=== PATIENT | male | born 1965 | race Caucasian/White ===

== ENCOUNTER 2016-06-13 06:38 | Outpatient (CLI) | payer OTHER ==
[~2016-06-13] VITALS: Ht 190.5 cm; Wt 136.1 kg
[~2016-06-13 06:38] MED LIST: ALPR1T PO; CYCL10TA9 PO; GABA300C PO; HYDR-3816 PO; HYDR1TAB PO; HYDR473S16 PO; LIDO20SO20 PO
[2016-06-13] MEDS ORDERED: BUPIVACAINE 0.25% 30 ML (SENSORCAINE) VIAL ONE (06:59)
[2016-06-13] MEDS ORDERED: LIDOCAINE 1% INJ 20 ML (XYLOCAINE) VIAL ONE (06:59)
[2016-06-13] MEDS ORDERED: TRIAMCINOLONE ACET (KENALOG-40) 40 MG/ML 1 ML VIAL ONE (06:59)
[2016-06-13 07:10] VITALS: BP 119/86
[2016-06-13 08:04] VITALS: BP 134/83
--- NOTE | 2016-06-13 11:21 | Pain Medicine-Procedure ---
Procedure Pre-Op/Post-Op Diagnosis Diagnosis: sacrococcygeal disorder Indications for Operation hip pain Attending Surgeon Jp Procedure Date of Service: Jun 13, 2016 Procedure: Flouroscopic guided right sacroiliac joint injection PROCEDURE IN DETAIL: After obtaining informed consent from the patient, the patient's chart was reviewed. The patient was then brought to the procedure room and placed in the prone position. A time out was performed. The back was prepped with antiseptic solution and under fluoroscopic guidance the patient's sacroiliac joint on the right side was identified. Right sacroiliac joint was identified with fluoroscopic guidance and 2 mL's of 1% lidocaine was used to anesthestize the skin and then one 22-gauge 3.5 inch spinal needle was inserted and advance under flouroscopic guidance until it was in the posterior inferior 1 /3 of the sacroiliac joint on the right side. After negative aspiration, needle was injected with 80 mg of Kenalog along with 2 mL's of 0.25% marcaine. Needle was then flushed with 1% lidocaine and then removed. Band-Aids were applied to all the sites and the patient tolerated the procedure well and was taken to the recovery area in stable condition. Complications none BIBIANA MELENDEZ MD Jun 13, 2016 11:21 am
== END 2016-06-13 08:06 | disposition home or self-care (01) ==
LOC: CARD 06:38
PROVIDERS: ATTEND Pain Medicine Pain Medicine
DX: M53.3 Sacrococcygeal disorders, not elsewhere classified (principal); Z79.899 Other long term (current) drug therapy; Z79.84 Long term (current) use of oral hypoglycemic drugs; E11.9 Type 2 diabetes mellitus without complications
CPT/HCPCS: 27096; 82962

== ENCOUNTER 2016-09-05 09:44 | Outpatient (CLI) | payer OTHER ==
[~2016-09-05] VITALS: Ht 190.5 cm; Wt 136.1 kg
[2016-09-05] MEDS ORDERED: TRIAMCINOLONE ACET (KENALOG-40) 40 MG/ML 1 ML VIAL ONE (09:55)
[2016-09-05] MEDS ORDERED: BUPIVACAINE 0.25% 30 ML (SENSORCAINE) VIAL ONE (09:56)
[2016-09-05] MEDS ORDERED: LIDOCAINE 1% INJ 20 ML (XYLOCAINE) VIAL ONE (09:56)
[2016-09-05 10:11] VITALS: BP 120/84
[2016-09-05 10:38] VITALS: BP 133/89
--- NOTE | 2016-09-05 12:35 | Pain Medicine-Procedure ---
Procedure Pre-Op/Post-Op Diagnosis Diagnosis: sacrococcygeal disorder Indications for Operation Hip pain Attending Surgeon Jp Procedure Date of Service: September 05, 2016 Procedure: Flouroscopic guided right sacroiliac joint injection PROCEDURE IN DETAIL: After obtaining informed consent from the patient, the patient's chart was reviewed. The patient was then brought to the procedure room and placed in the prone position. A time out was performed. The back was prepped with antiseptic solution and under fluoroscopic guidance the patient's sacroiliac joint on the right side was identified. Right sacroiliac joint was identified with fluoroscopic guidance and 2 mL's of 1% lidocaine was used to anesthestize the skin and then one 22-gauge 3.5 inch spinal needle was inserted and advance under flouroscopic guidance until it was in the posterior inferior 1 /3 of the sacroiliac joint on the right side. After negative aspiration, needle was injected with 80 mg of Kenalog along with 2 mL's of 0.25% marcaine. Needle was then flushed with 1% lidocaine and then removed. Band-Aids were applied to all the sites and the patient tolerated the procedure well and was taken to the recovery area in stable condition. Complications None BIBIANA MELENDEZ MD September 05, 2016 12:35 pm
== END 2016-09-05 10:41 | disposition home or self-care (01) ==
LOC: CARD 09:44
PROVIDERS: ATTEND Pain Medicine Pain Medicine
DX: M53.3 Sacrococcygeal disorders, not elsewhere classified (principal); Z79.84 Long term (current) use of oral hypoglycemic drugs; Z79.899 Other long term (current) drug therapy
CPT/HCPCS: 27096; 82962

== ENCOUNTER 2016-09-26 16:40 | Emergency (ER) | payer OTHER ==
[~2016-09-26] VITALS: Ht 190.5 cm; Wt 136.1 kg
[2016-09-26 17:22] LABS: RED BLOOD COUNT 5.12 10^6/uL (4.35-5.85)
[2016-09-26 17:32] LABS: BILIRUBIN,URINE NEGATIVE (NEGATIVE); KETONES,URINE NEGATIVE (NEGATIVE); LEUKOCYTE ESTERASE ,URINE NEGATIVE (NEGATIVE); NITRITE,URINE NEGATIVE (NEGATIVE); PH,URINE 6.5 (5-9); PROTEIN,URINE 1+ (NEGATIVE); UROBILINOGEN,URINE NORMAL (NORMAL)
[2016-09-26 17:39] LABS: ALANINE AMINOTRANSFERASE 24 U/L (0-55); ALBUMIN 4.6 G/DL (3.2-4.5); ANION GAP 11 MMOL/L (5-14); ASPARTATE AMINO TRANSFERASE 17 U/L (5-34); BILIRUBIN,DIRECT 0.2 MG/DL (0.0-0.3); BILIRUBIN,INDIRECT 0.4 MG/DL; BILIRUBIN,TOTAL 0.6 MG/DL (0.1-1.0); BLOOD UREA NITROGEN 14 MG/DL (7-18); BUN/CREATININE RATIO 15; CALCIUM 9.5 MG/DL (8.5-10.1); CARBON DIOXIDE 22 MMOL/L (21-32); CHLORIDE 107 MMOL/L (98-107); CREATININE SERUM 0.94 MG/DL (0.60-1.30); GFR ESTIMATED > 60; GLUCOSE 128 MG/DL (70-105); POTASSIUM 3.7 MMOL/L (3.6-5.0); SODIUM 140 MMOL/L (135-145); TOTAL PROTEIN 7.6 G/DL (6.4-8.2)
[2016-09-26 17:41] LABS: ALCOHOL < 10 MG/DL (<10)
[2016-09-26 17:41] LABS: WBC,URINE RARE /HPF
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
[2016-09-26] MEDS: TETANUS,DIPTH,PERTUSS P/F (BOOSTRIX) 0.5 ML VIAL IM STA (17:53)
[2016-09-26] MEDS: HYDROcodone/APAP 7.5 MG/325 MG (LORTAB, LORCET PLUS) TABLET PO ONE (18:03)
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
[2016-09-26] MEDS ORDERED: HYDR-3816 PO (18:42)
[2016-09-26 18:50] VITALS: BP 130/90
== END 2016-09-26 18:50 | disposition home or self-care (01) ==
LOC: EDUNIT# 16:40 → ER 16:42
DX: S09.90XA Unspecified injury of head, initial encounter (principal); S60.221A Contusion of right hand, initial encounter; S80.11XA Contusion of right lower leg, initial encounter; M50.320 Other cervical disc degeneration, mid-cervical region, unspecified level; V89.2XXA Person injured in unspecified motor-vehicle accident, traffic, initial encounter; Y92.410 Unspecified street and highway as the place of occurrence of the external cause; Y99.0 Civilian activity done for income or pay
CPT/HCPCS: 36415; 70450; 72125; 73130; 80048; 80076; 80320; 81000; 85027; 90715

== ENCOUNTER 2017-04-01 06:03 | Emergency (ER) | payer SELFPAY ==
[~2017-04-01] VITALS: Ht 188 cm; Wt 93.0 kg
[2017-04-01] MEDS ORDERED: LISI10TA2 (06:18)
[2017-04-01] MEDS ORDERED: TOPI50TA13 (06:18)
[2017-04-01] MEDS ORDERED: METF1000 (06:18)
[2017-04-01] MEDS ORDERED: AMIT100T2 (06:18)
[2017-04-01] MEDS ORDERED: NS IV 1000 ML 1,000 ML IV ONE (06:28)
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
[2017-04-01 06:50] LABS: BASOPHILS # (AUTO) 0.1 10^3/uL (0.0-0.1); BASOPHILS % (AUTO) 1 % (0-10); EOSINOPHILS # (AUTO) 0.3 10^3/uL (0.0-0.3); EOSINOPHILS % (AUTO) 4 % (0-10); LYMPHOCYTES # (AUTO) 1.5 X 10^3 (1.0-4.0); LYMPHOCYTES % (AUTO) 21 % (12-44); MEAN CORPUSCULAR HEMOGLOBIN 32 PG (25-34); MEAN CORPUSCULAR HGB CONC 35 G/DL (32-36); MEAN CORPUSCULAR VOLUME 91 FL (80-99); MEAN PLATELET VOLUME 10.1 FL (7.4-10.4); MONOCYTES # (AUTO) 0.6 X 10^3 (0.0-1.0); MONOCYTES % (AUTO) 9 % (0-12); NEUTROPHILS # (AUTO) 4.7 X 10^3 (1.8-7.8); NEUTROPHILS % (AUTO) 65 % (42-75); PLATELET COUNT 260 10^3/uL (130-400); RED BLOOD COUNT 4.65 10^6/uL (4.35-5.85); RED CELL DISTRIBUTION WIDTH 12.6 % (10.0-14.5); WHITE BLOOD COUNT 7.3 10^3/uL (4.3-11.0)
--- NOTE | 2017-04-01 06:55 | Diagnostic Imaging Report ---
PROCEDURE: CT head without contrast. TECHNIQUE: Multiple contiguous axial images were obtained through the brain without the use of intravenous contrast. INDICATION: Headache. Hypertension. Swallowing difficulties. Tremors. The ventricles are normal in size, shape and position. There is no acute parenchymal hemorrhage, edema or mass. There is no extra-axial mass or hemorrhage. There is no acute bony abnormality. IMPRESSION: Normal CT of the head. There is no change from 09/26/2016. Dictated by: Dictated on workstation # [id number]
[2017-04-01 07:06] LABS: ALANINE AMINOTRANSFERASE 9 U/L (0-55); ANION GAP 12 MMOL/L (5-14); ASPARTATE AMINO TRANSFERASE 8 U/L (5-34); BILIRUBIN,TOTAL 0.4 MG/DL (0.1-1.0); BLOOD UREA NITROGEN 9 MG/DL (7-18); BUN/CREATININE RATIO 11; CALCIUM 9.2 MG/DL (8.5-10.1); CARBON DIOXIDE 20 MMOL/L (21-32); CHLORIDE 104 MMOL/L (98-107); CREATININE SERUM 0.83 MG/DL (0.60-1.30); GFR ESTIMATED > 60; GLUCOSE 147 MG/DL (70-105); POTASSIUM 3.4 MMOL/L (3.6-5.0); SODIUM 136 MMOL/L (135-145); TOTAL PROTEIN 6.6 GM/DL (6.4-8.2)
[2017-04-01 07:12] LABS: MYOGLOBIN SERUM 14.1 NG/ML (10.0-92.0)
[2017-04-01 08:14] VITALS: BP 126/84
[2017-04-01 09:27] VITALS: BP 112/95
== END 2017-04-01 09:27 | disposition home or self-care (01) ==
LOC: EDUNIT# 06:03 → ER 06:07
DX: I10 Essential (primary) hypertension (principal); R13.10 Dysphagia, unspecified; F41.9 Anxiety disorder, unspecified; E11.9 Type 2 diabetes mellitus without complications; F12.90 Cannabis use, unspecified, uncomplicated; Z87.821 Personal history of retained foreign body fully removed; Z79.84 Long term (current) use of oral hypoglycemic drugs; Z86.19 Personal history of other infectious and parasitic diseases
CPT/HCPCS: 36415; 70450; 80053; 80306; 83874; 85025; 99283

== ENCOUNTER → 2017-07-29 | Outpatient (CLI) | payer SELFPAY ==
[~2017-07-29] MED LIST changes: +AMIT100T2; +BARIUM SUSPENSION 105% (LIQUID POLIBAR PLUS) 240 ML/DOSE PO ONE; +BARIUM SUSPENSION 60% (LIQUID EZ PAQUE) 240 ML DOSE PO ONE; +HYDR-34 PO; +LISI10TA2; +METF1000; +TOPI50TA13
--- NOTE | 2017-07-29 10:59 | Diagnostic Imaging Report ---
INDICATION: Dysphagia. TECHNIQUE: The patient ingested effervescent crystals as well as thin and thick barium and imaging of the esophagus was performed. A total of 2 minutes and 7 seconds of fluoroscopic time was utilized. FINDINGS: The upper esophagus is unremarkable. The patient did aspirate a small amount of thick barium. The mid thoracic esophagus is unremarkable. The distal esophagus does show a segment of significant mucosal irregularity and luminal narrowing with more proximal dilatation present. This is approximately 10 cm in length. This is concerning for a distal esophageal neoplasm. Contrast did pass into the stomach and no complete obstruction is identified. IMPRESSION: Significant irregularity and luminal narrowing of the distal esophagus, suspicious for esophageal neoplasm. Further evaluation with endoscopy is recommended. Dr. Corie West will be called with these results. Dictated by: Dictated on workstation # [id number]
== END ==
LOC: RAD 09:06
PROVIDERS: ATTEND Family Medicine
DX: R13.10 Dysphagia, unspecified (principal); K22.8 Other specified diseases of esophagus
CPT/HCPCS: 74220

== ENCOUNTER 2017-08-05 13:10 | Outpatient (CLI) | payer SELFPAY ==
[~2017-08-05] VITALS: Ht 188 cm; Wt 81.6 kg
[~2017-08-05 13:10] MED LIST changes: -AMIT100T2; +AMIT100T2 PO; -BARIUM SUSPENSION 105% (LIQUID POLIBAR PLUS) 240 ML/DOSE PO ONE; -BARIUM SUSPENSION 60% (LIQUID EZ PAQUE) 240 ML DOSE PO ONE; -METF1000; +METF10002 PO
[2017-09-07] MEDS ORDERED: HYDR-3820 PO (14:48)
== END 2017-08-05 14:11 ==
LOC: PREOP 13:10
PROVIDERS: ATTEND Surgery
DX: Z01.818 Encounter for other preprocedural examination (principal); R13.10 Dysphagia, unspecified; K22.2 Esophageal obstruction

== ENCOUNTER 2017-08-06 07:00 | Day surgery (SDC) | payer OTHER ==
[~2017-08-06] VITALS: Ht 188 cm; Wt 81.6 kg
[~2017-08-06 07:00] MED LIST changes: +METF1000 PO; -METF10002 PO
[2017-08-06] MEDS ORDERED: LACTATED RINGERS 1,000 ML IV ONE (07:08)
[2017-08-06] MEDS ORDERED: LACTATED RINGERS 1,000 ML IV STA (07:09)
[2017-08-06] MEDS ORDERED: HURRICAINE EXT TUBE (BENZOCAINE) XX PRN (07:15)
[2017-08-06] MEDS ORDERED: SUCCINYLCHOLINE INJ 100 MG/5 ML SYR ONE (07:21)
[2017-08-06] MEDS ORDERED: MIDAZOLAM 2 MG/2 ML (VERSED) VIAL ONE (07:21)
[2017-08-06] MEDS ORDERED: proPOfol 200 MG/20 ML (DIPRIVAN) VIAL IV ONE ×2 (07:21→08:33)
[2017-08-06 07:50] VITALS: BP 116/76
--- NOTE | 2017-08-06 08:20 | Progress Note-Pre Operative ---
Pre-Operative Progress Note H&P Reviewed The H&P was reviewed, patient examined and no changes noted. Time Seen by Provider: 08:16 Date H&P Reviewed: Aug 06, 2017 Time H&P Reviewed: 08:18 Pre-Operative Diagnosis: Dysphagia, Esophageal narrowing KAREN NG DO Aug 06, 2017 08:20
--- NOTE | 2017-08-06 08:49 | Progress Note-Post Operative ---
Post-Operative Progess Note Surgeon (s)/Meteorological Aide (s) Surgeon KAREN NG DO Meteorological Aide: none Pre-Operative Diagnosis Dysphagia, Esophageal narrowing Post-Operative Diagnosis Esophageal mass Procedure & Operative Findings Date of Procedure 08/06/17 Procedure Performed/Findings EGD with bx Anesthesia Type IV sedation by HEALTH CONSULTANT Estimated Blood Loss Estimated blood loss (mL): scant Specimens/Packing Specimens Removed bx of upper mass bx of lower mass KAREN NG DO Aug 06, 2017 08:49
--- NOTE | 2017-08-06 08:51 | Endoscopy Discharge Instruct ---
Endo Procedure/Findings Findings 1.: Other Findings (esophageal mass) Discharge Instructions - Activity: You might feel a little sleepy until tomorrow. This is due to the medicine you received to relax you. Until tomorrow, you should: NOT drive a car, operate machinery or power tools. NOT drink any alcoholic beverages. NOT make any important decisions or sign importortant papers. Do not return to work until tomorrow, unless otherwise instructed. Resume previous activities tomorrow. Diet: Start by taking liquids. If you tolerate liquids, advance to solid food. You may have some bloody spit, vomit or coughing. Notify Physician - If you experience excessive bleeding, unusual abdominal pain, fever, or chest pain, contact your doctor immediately. Follow-Up: - I have received and understand the above instructions and will call my doctor if I have any further questions. Patient Signature Date Nurse Signature Other (Relationship) KAREN NG DO Aug 06, 2017 08:51
[2017-08-06 09:05] VITALS: BP 120/78
--- NOTE | 2017-08-06 09:18 | Anesthesia-General Post-Op ---
MAC Patient Condition Mental Status/LOC: Same as Preop Cardiovascular: Satisfactory Nausea/Vomiting: Absent Respiratory: Satisfactory Pain: Controlled Complications: Absent Post Op Complications Complications None Follow Up Care/Instructions Patient Instructions None needed. Anesthesiology Discharge Order Discharge Order Patient is doing well, no complaints, stable vital signs, no apparent adverse anesthesia problems. No complications reported per nursing. ASH THOMSON CRNA Aug 06, 2017 09:18
[2017-08-06 09:30] VITALS: BP 122/81
[2017-08-06 09:50] VITALS: BP 122/81
--- NOTE | 2017-08-07 20:09 | OPERATIVE REPORT ---
DATE OF SERVICE: 08/06/2017 PREOPERATIVE DIAGNOSES: Dysphagia, questionable esophageal narrowing. POSTOPERATIVE DIAGNOSES: 1. Dysphagia. 2. Esophageal mass. PROCEDURE: EGD with biopsy. SURGEON: Yony Delong DO. COUNSELING SERVICES DIRECTOR: None. ANESTHESIA: IV sedation by the MILK PROCESSING WORKER. SPECIMEN: Biopsy from esophageal mass. Possibly, there are two different masses. Both were biopsied. BLOOD LOSS: Scant. FLUIDS: Per anesthesia. POSTOPERATIVE CONDITION: Stable. INDICATION FOR PROCEDURE: The patient is a 51-year-old male who has been having some trouble swallowing and had a barium swallow, which showed some narrowing of the esophagus. FINDINGS: The patient had a mass in the esophagus, possibly to about 10 cm long. Could not get into the stomach because I could not get pass this mass. PROCEDURE NOTE: After informed consent was obtained, the patient was brought to the endoscopy suite, placed in the left lateral decubitus position. He was administered IV sedation by the MILK PROCESSING WORKER who then monitored his vitals the entire time, heart rate, blood pressure and pulse ox, and the scope was inserted down the mouth into the oropharynx and then down into the esophagus. Down towards the distal portion of the esophagus, I saw a mass. Elected to do a biopsy. Blood little bit. Took two biopsies here, tried to push pass it. There appeared to be almost like another mass . This is at least a 10 cm length could not get into the stomach, could not get pass the lower portion of the mass. There was some food particles that we removed by grasping them. The upper portion of the esophagus looked fine and back of the throat looked fine. Pulled the scope out and the patient was then recovered in the endoscopy suite. Job ID: [id number] DocumentID: [id number] Dictated Date: 08/07/2017 11:45:29 Order Make Up Clerk Date: 08/07/2017 20:09:26 Dictated By: YONY DELONG DO
== END 2017-08-06 09:50 | disposition home or self-care (01) ==
LOC: ENDO 07:00
PROVIDERS: ATTEND Surgery
DX: C15.5 Malignant neoplasm of lower third of esophagus (principal); I10 Essential (primary) hypertension; E11.42 Type 2 diabetes mellitus with diabetic polyneuropathy; G43.909 Migraine, unspecified, not intractable, without status migrainosus; Z87.820 Personal history of traumatic brain injury; Z79.84 Long term (current) use of oral hypoglycemic drugs; Z79.899 Other long term (current) drug therapy

== ENCOUNTER → 2017-08-17 | Outpatient (CLI) | payer OTHER ==
[~2017-08-17] MED LIST changes: +BARIUM SUSPENSION 2.1% (VANILLA SILQ) 450 ML PO ONE; +HYDR-3820 PO; +IOHEXOL 350 MG/ML 100 ML (OMNIPAQUE 350) VIAL IV ONE; -METF1000 PO; +METF10002 PO; +NS 100 ML (IVPB) BAG IV ONE; +NS 250 ML (IVPB) BAG IV ONE
--- NOTE | 2017-08-17 09:04 | Diagnostic Imaging Report ---
PROCEDURE: CT chest with contrast, CT abdomen and pelvis with and without contrast. TECHNIQUE: Pre and post intravenous contrast axial imaging of the abdomen and pelvis and post contrast axial imaging of the chest were performed. INDICATION: Esophageal carcinoma. COMPARISON: No prior CT studies are available for comparison. FINDINGS: CT chest: No axillary lymphadenopathy is identified. No definite hilar or mediastinal lymphadenopathy is seen. Significant circumferential wall thickening of the distal esophagus extending to the level of the GE junction is noted corresponding with the patient's diagnosis of esophageal carcinoma and abnormal upper GI study. No pericardial or pleural fluid is detected. No pulmonary parenchymal mass, nodule or infiltrate is identified. Bony structures are nonacute. CT abdomen and pelvis: No discrete liver mass is identified. Gallbladder is unremarkable. The pancreas and spleen are unremarkable. No adrenal mass is detected. The kidneys are unremarkable. Aorta is nonaneurysmal. No definite central retroperitoneal or mesenteric lymphadenopathy is identified. The small and large bowel loops are of normal caliber. There is no ascites. Bladder and prostate are unremarkable. IMPRESSION: 1. Distal esophageal circumferential wall thickening consistent with the patient's diagnosis of esophageal carcinoma. No thoracic lymphadenopathy or evidence of pulmonary metastatic disease is identified. 2. Unremarkable CT of the abdomen and pelvis. No findings to suggest metastatic disease are identified. Dictated by: Dictated on workstation # [id number]
== END ==
LOC: RAD 08:20
PROVIDERS: ATTEND Internal Medicine Hematology & Oncology
DX: C15.5 Malignant neoplasm of lower third of esophagus (principal)
CPT/HCPCS: 71260; 74178

== ENCOUNTER → 2017-08-25 | Outpatient (CLI) | payer OTHER ==
[~2017-08-25] MED LIST changes: -BARIUM SUSPENSION 2.1% (VANILLA SILQ) 450 ML PO ONE; -IOHEXOL 350 MG/ML 100 ML (OMNIPAQUE 350) VIAL IV ONE; -NS 100 ML (IVPB) BAG IV ONE; -NS 250 ML (IVPB) BAG IV ONE
--- NOTE | 2017-08-25 15:54 | Diagnostic Imaging Report ---
EXAMINATION: PET/CT. INDICATION: Malignant neoplasm of the distal esophagus. EXAMINATION: After intravenous administration of 11.42 mCi of F18-FDG, a series of overlapping emission and transmission PET images was obtained. In the coronal, transaxial and sagittal planes, the area imaged extended from the skull base through the upper thighs. FINDINGS: There are no previous PET/CT examinations available for comparison. The CT chest, abdomen, and pelvis exam of 08/17/2017, however, did show circumferential wall thickening of the distal esophagus consistent with the patient's diagnosis of esophageal carcinoma. There was no other abnormality identified to suggest neoplastic disease. On this study, there is intense hypermetabolic activity throughout the circumferential wall thickening of the distal third of the esophagus. The maximum SUV in this area is approximately 13. There are also 2 small foci of increased hypermetabolic activity along the right lateral aspect of the esophagus at the level of the azygoesophageal recess. These suspected nodes have a maximum SUV of 4.6 and should be considered neoplastic until proven otherwise. There is no other hypermetabolic activity identified to suggest the presence of neoplasm. There is increased activity in the oral cavity. There is no discernible mass in this area, however, and the activity is probably physiologic in nature. Physiologic activity is seen within the kidneys, bowel, bladder, and brain. IMPRESSION: 1. There is intense hypermetabolic activity involving the distal third of the esophagus in the region of the circumferential wall thickening seen on the recent CT exam. This would coincide with the patient's history of esophageal carcinoma. 2. There are also two small hypermetabolic nodes in the azygoesophageal recess. These should be considered neoplastic as well. 3. There is no other hypermetabolic activity to suggest the presence of neoplasm. The activity in the oral cavity is probably physiologic in nature. If further study is desired, then direct visualization would be recommended. 4. There is no acute abnormality identified on the CT images. Dictated by: Dictated on workstation # [id number]
== END ==
LOC: RAD 08:37
PROVIDERS: ATTEND Internal Medicine Hematology & Oncology
DX: C15.5 Malignant neoplasm of lower third of esophagus (principal)

== ENCOUNTER 2017-09-07 07:21 | Day surgery (SDC) | payer OTHER ==
[~2017-09-07] VITALS: Ht 188 cm; Wt 81.6 kg
[~2017-09-07 07:21] MED LIST changes: -HYDR-3820 PO
[2017-09-07] MEDS ORDERED: CLINDAMYCIN 600 MG/50 ML IVPB 50 ML IV ONE (08:00)
[2017-09-07] MEDS: LACTATED RINGERS 1,000 ML IV PRN ×2 (09:08→14:30)
[2017-09-07 09:09] VITALS: BP 112/80
--- NOTE | 2017-09-07 09:27 | Progress Note-Pre Operative ---
Pre-Operative Progress Note H&P Reviewed The H&P was reviewed, patient examined and no changes noted. Time Seen by Provider: 09:20 Date H&P Reviewed: September 07, 2017 Time H&P Reviewed: 09:23 Pre-Operative Diagnosis: , Esophageal CA KAREN NG DO September 07, 2017 09:27
[2017-09-07] MEDS ORDERED: PROPOFOL INJECTION 50 ML IV ONE (10:22)
[2017-09-07] MEDS ORDERED: fentaNYL INJECTION 100 MCG/2 ML AMP ONE (10:22)
[2017-09-07] MEDS ORDERED: LIDOCAINE/EPI 1%-1:200,000 (XYLOCAINE) 10 ML VIAL ONE ×2 (10:23→13:44)
[2017-09-07] MEDS ORDERED: HEParin (CENTRAL IV FLUSH) 500 UNIT/5 ML SYR ONE (10:23)
[2017-09-07] MEDS ORDERED: 0.9% SODIUM CHLORIDE PF INJ 20 ML VIAL ONE (10:24)
[2017-09-07] MEDS ORDERED: MIDAZOLAM 2 MG/2 ML (VERSED) VIAL ONE (10:25)
[2017-09-07] MEDS ORDERED: ONDANSETRON 4 MG/2 ML (SDV) Z0FRAN ONE ×2 (13:35→13:36)
[2017-09-07] MEDS ORDERED: ROCURONIUM 10 MG/ML 5 ML SYRINGE IV ONE (13:36)
[2017-09-07] MEDS ORDERED: SEVOFLURANE (ULTANE) 15 ML INHAL SOLN ONE ×7 (13:36→14:25)
--- NOTE | 2017-09-07 14:11 | Diagnostic Imaging Report ---
Indication: Fluoroscopy for prior port placement. Fluoroscopy was provided for Dr. Delong in the OR during power port placement. 15 seconds of fluoroscopy was utilized. A right subclavian port appears to have the tip overlying the SVC. Impression: Fluoroscopy for power port placement. Dictated by: Dictated on workstation # [id number]
[2017-09-07] MEDS ORDERED: LIDOCAINE PF 2% 5 ML (XYLOCAINE) VIAL ONE (14:21)
[2017-09-07] MEDS ORDERED: GLYCOPYRROLATE 0.2 MG/ML (ROBINUL) 2 ML VIAL ONE (14:37)
[2017-09-07] MEDS ORDERED: NEOSTIGMINE 1 MG/ML 5 ML SYRINGE ONE (14:37)
--- NOTE | 2017-09-07 14:47 | Progress Note-Post Operative ---
Post-Operative Progess Note Surgeon (s)/Senior Oracle Dba (s) Surgeon KAREN NG DO Senior Oracle Dba: Xiao Pre-Operative Diagnosis , Esophageal CA Post-Operative Diagnosis same Procedure & Operative Findings Date of Procedure 09/07/17 Procedure Performed/Findings 1. Open Jejunostomy tube placement 2. Hugo-cath insertion, right SC vein, right ACW Anesthesia Type GET Estimated Blood Loss Estimated blood loss (mL): less than 5ml Specimens/Packing Specimens Removed none KAREN NG DO September 07, 2017 14:47
[2017-09-07] MEDS ORDERED: HYDR-3820 PO (14:48)
--- NOTE | 2017-09-07 14:50 | Discharge Inst-Surgical ---
Discharge Inst-Surgical Depart Medication/Instructions New, Converted or Re-Newed RX: RX Given to Pt/Family Patient Instructions Follow up Appt: Make appointment for 1 week. Instructions: No lifting greater than 10 pounds. No strenuous activity. May shower in 24 hours, no tub bath or soaking. Use incentive spirometer at home as directed. No Smoking Skin/Wound Care: May remove bandages. You need to leave the matias in place; will remove them in the office. Symptoms to Report: Appetite Changes, Extremity Discoloration, Numbness/Tingling, Swelling Increased , Bleeding Excessive, Eyesight Changes, Pain Increased, Urine Color Change, Constipation(Persistent), Fever over 101 degree F, Pain/Pressure in chest, Urinating Difficulty, Cough Up/Vomit Blood, Heart Beat Irreg/Pounding, Pain/ Pressure in jaw, Cramps in feet or legs, Lightheadedness, Pain/Pressure in shoulder, Diarrhea(Persistent), Memory Changes Suddenly, Questions/Concerns, Weight gain consecutive days, Dizziness/Fainting, Nausea/Vomiting, Shortness of Breath, Weight gain over 2 pounds If questions or concerns contact your physician Or seek help at emergency department. Activity Activity as Tolerated: Yes Activity Instructions: Avoid Stress to Incision Driving Instructions: No Driving/Refer to Diet Discharge Diet: Liquid Diet If Any Problems/Questions/Issu: Contact Your Physician, Go to Emergency Room Skin/Wound Care Infection Signs and Symptoms: Increased Redness, Foul Odor of Wound, Increased Drainage, Skin Itchy or Has a Rash, Increased Swelling, Temperature Above 101 F Bathing Instructions: Shower Stitches/[place]/Dermabond Dis: Care of Matias Ice Pack: Ice On and Off Site KAREN NG DO September 07, 2017 14:50
[2017-09-07] MEDS ORDERED: MEPERIDINE (DEMEROL) INJ 50 MG/ML IVP PRN (15:15)
[2017-09-07] MEDS ORDERED: ONDANSETRON 4 MG/2 ML (SDV) Z0FRAN IVP PRN (15:15)
[2017-09-07] MEDS ORDERED: morphine INJ 10 MG/ML 1ML (SYR OR VIAL) IVP PRN (15:15)
[2017-09-07 15:40] VITALS: BP 138/86
--- NOTE | 2017-09-07 15:42 | Anesthesia-General Post-Op ---
General Patient Condition Mental Status/LOC: Same as Preop Cardiovascular: Satisfactory Nausea/Vomiting: Absent Respiratory: Satisfactory Pain: Controlled Complications: Absent Post Op Complications Complications None Follow Up Care/Instructions Patient Instructions None needed. Anesthesia/Patient Condition Patient Condition Patient is doing well, C/O pain which is expected, stable vital signs, no apparent adverse anesthesia problems. NADIA ERVIN DO September 07, 2017 15:42
[2017-09-07] MEDS ORDERED: HYDROcodone/APAP 10 MG/325 MG (LORTAB) TAB PO ONE ×2 (15:57→16:00)
[2017-09-07 16:10] VITALS: BP 133/89
[2017-09-07 16:40] VITALS: BP 137/88
[2017-09-07 16:55] VITALS: BP 137/88
--- OUTSIDE RECORDS SUMMARY | 2017-09-07 17:28 | XMS REPORT | Encounter Summary ---
Author Author [facility] Organization [facility] Address Unknown Phone Unavailable Care Team Providers Care Decorating Equipment Setter Name Role Phone PCP Unavailable Reason for Referral * Consult, Test & Treat (Routine) Status Reason Specialty Diagnoses / Referred By Referred To Procedures Contact Contact Canceled Specialty Diagnoses Angel-Krystal, Services Malignant MD Abner Required neoplasm of [address] unspecified [place] [address] location ([facility]) [place] [address] Reason for Visit * Reason Comments Navigation Assessment Encounter Details Date Type Department Care Team Description 08/31/2017 Telephone [facility] Sophia Patel RN Navigation Assessment [facility] Exam [address] [place] [address] Social History Tobacco Use Types Packs/Day Years Used Date Never Assessed Sex Assigned at Date Recorded Not on file as of this encounter Miscellaneous Notes * Telephone Encounter - Sophia Patel RN - 09/01/2017 7:23 PM CDT Obtained referral on 08/28/17. Patient was authorized by FC and was reached by navigation IC to confirm demographics on 08/31/17. This RN spoke to the patient that day, completed navigation assessment. Clarified referral with Dr. Vanegas's office. They are referring for surgical consultation of esophageal malignancy and consideration of J-tube placement, not port placement. Spoke to patient regarding need for an EUS. Patient agreeable. this RN contacted Peggy Erickson APRN, she agreed with need for EUS to complete staging. Daniele contacted by GI lab to schedule. Patient however is uninsured. Patient given the number for roberta at the [facility]. This RN followed up with the patient. He stated that he "cleared" by [facility] for services there. INformed patient that [facility] is a different facility than , he's need to talk with our FCs. Daniele stated he saw a local surgeon for port placement today and stated he might have the EUS with him. At that time the patients' phone was disconnected and this RN was unable to reach him again. Updating covering nurse. Sophia Patel RN in this encounter Plan of Treatment Name Priority Associated Diagnoses Order Schedule AMB REFERRAL TO PATHOLOGY & LABORATORY Routine Malignant neoplasm of Ordered: 09/01/2017 MEDICINE PHYSICIAN-EXTERNAL esophagus, unspecified location (HCC) as of this encounter Visit Diagnoses Diagnosis Malignant neoplasm of esophagus, unspecified location (HCC) - Primary
--- OUTSIDE RECORDS SUMMARY | 2017-09-07 17:28 | XMS REPORT | Continuity of Care Document ---
Author Author [facility] Address Unknown Phone Unavailable Care Team Providers Care Cable Engineer Name Role Phone [employer] Unavailable Unavailable Problems Medications Allergies, Adverse Reactions, Alerts Immunizations Results Vital Signs Encounters Location Location Details Encounter Type Encounter Number Reason For Visit Attending Provider ADM Date DC Date Status Source O SUSI BUTLER Active [facility] Procedures Plan of Care Social History Assessment and Plan Family History Advance Directives Functional Status
--- OUTSIDE RECORDS SUMMARY | 2017-09-07 17:28 | XMS REPORT | Encounter Summary ---
Author Author [facility] Organization [facility] Address Unknown Phone Unavailable Care Team Providers Care Bulk Folder Name Role Phone PCP Unavailable Reason for Visit * Reason Comments Appointment Encounter Details Date Type Department Care Team Description 09/02/2017 Telephone [facility] Abner Adrian MD Appointment [facility] - [facility] Exam [address] [place] [address] [place] [address] [phone] Social History Tobacco Use Types Packs/Day Years Used Date Never Assessed Sex Assigned at Date Recorded Not on file as of this encounter Miscellaneous Notes * Telephone Encounter - Amira Mora RN - 09/02/2017 10:02 AM CDT Called [facility] to clarify referral. She states that j tube and port will be placed locally. EUS to be done by Dr. Dan. She will call us back when they are ready to schedule with Dr. Syed for surgical planning. in this encounter Plan of Treatment Not on fileas of this encounter Visit Diagnoses Not on filein this encounter
--- OUTSIDE RECORDS SUMMARY | 2017-09-07 17:28 | XMS REPORT | Encounter Summary ---
Author Author [facility] Organization [facility] Address Unknown Phone Unavailable Care Team Providers Care Drill Press Operator Numerical Control Name Role Phone PCP Unavailable Reason for Referral * Consult, Test & Treat Status Reason Specialty Diagnoses / Referred By Referred To Procedures Contact Contact Submitted Specialty Gastroenterology Diagnoses Abiel-Dre, Olyaee , Etienne, Services Malignant ILA Woods MD Required neoplasm of [address], Bl[address] [place] [address] [place] [address] [place], [place] location (HCC) [place] [address] Phone: Encounter Details Date Type Department Care Team Description 09/01/2017 Orders Only [facility] Peggy Diaz, 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, 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 Medicine [address] location (HCC) (Primary [address]ND FLO[address]OD [address] [place] [address] Dx) [address] [place] [address] OFFICE BLDG [phone] [place] [address] Social History Tobacco Use Types Packs/Day Years Used Date Never Assessed Sex Assigned at Date Recorded Not on file as of this encounter Plan of Treatment Name Priority Associated Diagnoses Order Schedule AMB REFERRAL TO GI LAB FOR PROCEDURE Routine Malignant neoplasm of Ordered: 09/01/2017 esophagus, unspecified location (HCC) as of this encounter Visit Diagnoses Diagnosis Malignant neoplasm of esophagus, unspecified location (HCC) - Primary
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
--- OUTSIDE RECORDS SUMMARY | 2017-09-07 17:28 | XMS REPORT | Encounter Summary ---
Author Author [facility] Organization [facility] Address Unknown Phone Unavailable Care Team Providers Care Wide Area Network Systems Administrator Name Role Phone PCP Unavailable Reason for Visit * Reason Comments Appointment Request EUS Encounter Details Date Type Department Care Team Description 09/01/2017 Telephone [facility] Lelia Moreno Appointment Request (EUS Physicians - Internal ) Medicine [address]ND FLOOR POD [address] [facility] [place] [address] Social History Tobacco Use Types Packs/Day Years Used Date Never Assessed Sex Assigned at Date Recorded Not on file as of this encounter Miscellaneous Notes * Telephone Encounter - Lelia Moreno - 09/02/2017 10:03 AM CDT Per Ingris LIEBERMAN - patient is having EUS with Dr Dan. Disregard order for EUS with Dr Parry. * Telephone Encounter - Lelia Moreno - 09/01/2017 2:03 PM CDT Patient uninsured - transferred to financial to set up payments. Once cleared through financial, can schedule EUS. Notified Sophia LIEBERMAN from cancer center. in this encounter Plan of Treatment Not on fileas of this encounter Visit Diagnoses Not on filein this encounter
--- OUTSIDE RECORDS SUMMARY | 2017-09-07 17:28 | XMS REPORT | Clinical Summary ---
Author Author [facility] Organization [facility] Address Unknown Phone Unavailable Care Team Providers Care Playground Aide Name Role Phone PCP Unavailable Source Comments Some departments are not documenting in the electronic medical record. If you do not see the information that you expected, contact Release of Information in the Health Information Management department at [phone] for further assistance in locating additional records.[facility] Allergies Not on File Current Medications Not on file Active Problems Problem Noted Date Malignant neoplasm of esophagus (HCC) 09/01/2017 Encounters Date Type Specialty Care Team Description 09/02/2017 Telephone Oncology Abner Adrian MD Appointment 09/01/2017 Telephone Gastroenterology Lelia Moreno Appointment Request (EUS ) 09/01/2017 Orders Only Gastroenterology Peggy Diaz, 

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
--- NOTE | 2017-09-07 23:24 | OPERATIVE REPORT ---
DATE OF SERVICE: 09/07/2017 PREOPERATIVE DIAGNOSES: 1. Venous insufficiency. 2. Esophageal cancer. POSTOPERATIVE DIAGNOSES: 1. Venous insufficiency. 2. Esophageal cancer. PROCEDURE: 1. Open jejunostomy tube placement. 2. Port-A-Cath placement in right subclavian vein, right anterior chest wall with fluoroscopy guidance. SURGEON: Yony Delong DO. HYDROMETER TESTER: Darrius Hagen DO. ANESTHESIA: General endotracheal tube. SPECIMENS: None. BLOOD LOSS: Less than 5 mL FLUIDS: Per anesthesia. POSTOPERATIVE CONDITION: Stable. INDICATION FOR PROCEDURE: The patient unfortunately has esophageal cancer, has some narrowing of the esophagus and has venous insufficiency. He will need long-term chemotherapy and will need a jejunostomy placed for feeding once he gets chemotherapy and radiation to the esophagus. FINDINGS: The patient had open jejunostomy placed and he had a Port-A-Cath placed in the right anterior chest wall, right subclavian vein. PROCEDURE NOTE: After informed consent was obtained, the patient was brought to the operating room, placed on the operating table in supine position. He was sterilely prepped and draped in normal fashion and decided to do the Port-A-Cath first, just to make sure it would not dirty the area. He was placed slight Trendelenburg, infiltrated the right anterior chest wall and right clavicle with local lidocaine and then using an 18-gauge finder needle under negative inspiration, advanced towards the clavicle with negative inspiration and then under it, got a good flash of blood in the first attempt. Removed the syringe and then placed a guidewire down the needle using Seldinger technique. Checked with fluoroscopy. It went up into the neck first. I was then able to get to go down into the superior vena cava, removed the needle, held this in place with a hemostat and then made a stab incision at the guidewire with an #11 blade and then made an incision in the right anterior chest wall with #11 blade had already infiltrated this area with local and then, over the guidewire placed the dilator using Seldinger technique. It went in easily and down into the superior vena cava, then tunneled from the stab incision into the pocket previously created. Removed the inner portion of the dilator as well as a guidewire and then placed the catheter down the dilator using Seldinger technique. We went in easily, checked fluoroscopy, it was in good position, removed the dilator and then cut the catheter, attached it to the Port-A-Cath and then sutured the Port-A-Cath into place suturing the 3-0 Prolene to the pectoralis major muscle and then aspirated and then accessed the port with a Reynaga needle. Good flash of blood and then flushed with saline, then aspirated again and then flushed with 2 mL of heparin. This was then sutured in place; 3-0 Vicryl, 2 interrupted sutures to close the subcutaneous tissue and then 4-0 undyed Monocryl 3 interrupted subcuticular stitches to close the incision and one single 4-0 undyed Monocryl subcuticular stitch to close the stab incision. At this point then broke everything down and the patient's abdomen was then sterilely prepped and draped and then put the new drapes. I made a midline incision with a #15 blade, carried down through the skin into the subcutaneous tissue. First, I had infiltrated the skin with local, then deepened down the subcutaneous tissue with Bovie electrocautery down in the fascia. Fascia was incised with Bovie electrocautery, then able to grasp the fascia and go through this with Bovie electrocautery. Bluntly entered the abdomen, swept the finger around and then increased this superiorly and inferiorly with Bovie electrocautery protecting the bowel with a finger holding up under the fascia. I was then able to identify the omentum, pushed this up out of the way and grabbed the small intestine, started running it and ran it down distally to the cecum. There were no adhesions or strictures. No obvious pathology and then ran it up towards the ligament of Treitz, found the ligament of Treitz and then went 20 cm distal to ligament of Treitz and then elected to place a Witzel jejunostomy tube using the 14-Ecuadorean MORENITA tube. First, a pursestring suture was placed with 3-0 Vicryl and then made an enterotomy with the Bovie electrocautery and then placed the distal portion of the jejunostomy tube placing the distal wings into the small intestine. I then suture closed the pursestring around the distal wings and then created a Witzel tunnel with interrupted 3-0 Vicryl sutures up to the proximal wings, sutured the proximal wings to the subserosal layer of the small intestine with 3-0 chromic sutures. I then made a stab incision in the left upper quadrant abdominal wall with a #15 blade and then dissected down with Bovie electrocautery as well as blunt dissection and then made an incision inside the abdomen on the peritoneum and then used the tunneling device to tunnel the tube up through and out of the abdomen, then did another suture of 3- 0 Vicryl pop-offs to grab at the 12 and 6 o'clock position and hold the jejunum up to the abdominal wall. This held nicely and brought the cuffed end of the tube into the abdominal wall held nicely, then sutured the J-tube in place on the abdominal wall with a 3-0 Vicryl suture. This was held in a nice position. At this point, I then elected to close the midline incision with a #1 double stranded PDS suture running from the superior portion to the inferior portion and tying to itself. Irrigated incisions with normal saline and closed the skin with matias. Area was cleaned and dried. Dressing was placed and the patient was then transferred to recovery room in stable condition. Sponge, instruments and needle counts were correct at the end of the case. Dr. Hagen assisted for the jejunostomy tube placement helping to create the incisions holding anatomy out of the way helping with the tunneling. Job ID: [id number] DocumentID: [id number] Dictated Date: 09/07/2017 15:21:10 Rotary Veneer Machine Operator Date: 09/07/2017 23:24:22 Dictated By: DO MARLENE STRONG
== END 2017-09-07 16:55 | disposition home or self-care (01) ==
LOC: SDC 07:21
PROVIDERS: ATTEND Surgery
DX: C15.9 Malignant neoplasm of esophagus, unspecified (principal); I87.2 Venous insufficiency (chronic) (peripheral); I10 Essential (primary) hypertension; E11.42 Type 2 diabetes mellitus with diabetic polyneuropathy; M54.9 Dorsalgia, unspecified; F12.90 Cannabis use, unspecified, uncomplicated; Z79.899 Other long term (current) drug therapy; Z87.891 Personal history of nicotine dependence; Z11.2 Encounter for screening for other bacterial diseases; Z88.0 Allergy status to penicillin; Z79.84 Long term (current) use of oral hypoglycemic drugs
CPT/HCPCS: 82962; 87081

== ENCOUNTER → 2017-11-11 | Outpatient (RCR) | payer OTHER ==
[2017-08-13 09:06] LABS: BASOPHILS % (AUTO) 1 % (0-10); EOSINOPHILS # (AUTO) 0.2 10^3/uL (0.0-0.3); EOSINOPHILS % (AUTO) 3 % (0-10); HEMATOCRIT 43 % (40-54); HEMOGLOBIN 14.3 G/DL (13.3-17.7); LYMPHOCYTES # (AUTO) 1.6 X 10^3 (1.0-4.0); LYMPHOCYTES % (AUTO) 20 % (12-44); MEAN CORPUSCULAR HEMOGLOBIN 32 PG (25-34); MEAN CORPUSCULAR HGB CONC 33 G/DL (32-36); MEAN CORPUSCULAR VOLUME 96 FL (80-99); MEAN PLATELET VOLUME 9.4 FL (7.4-10.4); MONOCYTES # (AUTO) 0.7 X 10^3 (0.0-1.0); MONOCYTES % (AUTO) 8 % (0-12); NEUTROPHILS # (AUTO) 5.6 X 10^3 (1.8-7.8); NEUTROPHILS % (AUTO) 69 % (42-75); PLATELET COUNT 270 10^3/uL (130-400); RED CELL DISTRIBUTION WIDTH 13.3 % (10.0-14.5); WHITE BLOOD COUNT 8.1 10^3/uL (4.3-11.0)
[2017-08-13 09:26] LABS: ALANINE AMINOTRANSFERASE 10 U/L (0-55); ALBUMIN 4.1 GM/DL (3.2-4.5); ALKALINE PHOSPHATASE 60 U/L (40-136); BILIRUBIN,TOTAL 0.4 MG/DL (0.1-1.0); BUN/CREATININE RATIO 15; CALCIUM 9.3 MG/DL (8.5-10.1); CARBON DIOXIDE 28 MMOL/L (21-32); CHLORIDE 103 MMOL/L (98-107); CREATININE SERUM 0.71 MG/DL (0.60-1.30); GFR ESTIMATED > 60; GLUCOSE 107 MG/DL (70-105); POTASSIUM 3.9 MMOL/L (3.6-5.0); SODIUM 139 MMOL/L (135-145); TOTAL PROTEIN 7.2 GM/DL (6.4-8.2)
[2017-09-28 13:19] LABS: BASOPHILS % (AUTO) 0 % (0-10); EOSINOPHILS # (AUTO) 0.9 10^3/uL (0.0-0.3); EOSINOPHILS % (AUTO) 9 % (0-10); HEMATOCRIT 44 % (40-54); HEMOGLOBIN 15.1 G/DL (13.3-17.7); LYMPHOCYTES # (AUTO) 1.8 X 10^3 (1.0-4.0); LYMPHOCYTES % (AUTO) 18 % (12-44); MEAN CORPUSCULAR HEMOGLOBIN 32 PG (25-34); MEAN CORPUSCULAR HGB CONC 35 G/DL (32-36); MEAN CORPUSCULAR VOLUME 92 FL (80-99); MEAN PLATELET VOLUME 9.5 FL (7.4-10.4); MONOCYTES # (AUTO) 0.7 X 10^3 (0.0-1.0); MONOCYTES % (AUTO) 7 % (0-12); NEUTROPHILS # (AUTO) 6.4 X 10^3 (1.8-7.8); NEUTROPHILS % (AUTO) 66 % (42-75); PLATELET COUNT 273 10^3/uL (130-400); RED BLOOD COUNT 4.74 10^6/uL (4.35-5.85); WHITE BLOOD COUNT 9.7 10^3/uL (4.3-11.0)
[2017-09-28 13:43] LABS: ALANINE AMINOTRANSFERASE 10 U/L (0-55); ALBUMIN 4.2 GM/DL (3.2-4.5); ALKALINE PHOSPHATASE 59 U/L (40-136); BILIRUBIN,TOTAL 0.5 MG/DL (0.1-1.0); BUN/CREATININE RATIO 20; CALCIUM 9.4 MG/DL (8.5-10.1); CARBON DIOXIDE 24 MMOL/L (21-32); CHLORIDE 102 MMOL/L (98-107); CREATININE SERUM 0.76 MG/DL (0.60-1.30); GFR ESTIMATED > 60; GLUCOSE 85 MG/DL (70-105); SODIUM 138 MMOL/L (135-145)
[2017-09-28 13:48] LABS: BUN/CREATININE RATIO 20; CREATININE SERUM 0.76 MG/DL (0.60-1.30); GFR ESTIMATED > 60
[2017-10-14 14:15] LABS: BASOPHILS % (AUTO) 0 % (0-10); EOSINOPHILS # (AUTO) 0.2 10^3/uL (0.0-0.3); EOSINOPHILS % (AUTO) 4 % (0-10); HEMATOCRIT 43 % (40-54); HEMOGLOBIN 15.2 G/DL (13.3-17.7); LYMPHOCYTES # (AUTO) 0.6 X 10^3 (1.0-4.0); LYMPHOCYTES % (AUTO) 11 % (12-44); MEAN CORPUSCULAR HEMOGLOBIN 32 PG (25-34); MEAN CORPUSCULAR HGB CONC 35 G/DL (32-36); MEAN CORPUSCULAR VOLUME 91 FL (80-99); MEAN PLATELET VOLUME 10.1 FL (7.4-10.4); MONOCYTES # (AUTO) 0.5 X 10^3 (0.0-1.0); MONOCYTES % (AUTO) 8 % (0-12); NEUTROPHILS # (AUTO) 4.5 X 10^3 (1.8-7.8); NEUTROPHILS % (AUTO) 77 % (42-75); PLATELET COUNT 237 10^3/uL (130-400); RED BLOOD COUNT 4.73 10^6/uL (4.35-5.85); RED CELL DISTRIBUTION WIDTH 12.6 % (10.0-14.5); WHITE BLOOD COUNT 5.8 10^3/uL (4.3-11.0)
[2017-10-14 14:36] LABS: ALANINE AMINOTRANSFERASE 6 U/L (0-55); ALBUMIN 4.1 GM/DL (3.2-4.5); ALKALINE PHOSPHATASE 56 U/L (40-136); BILIRUBIN,TOTAL 0.4 MG/DL (0.1-1.0); BUN/CREATININE RATIO 21; CALCIUM 9.3 MG/DL (8.5-10.1); CARBON DIOXIDE 22 MMOL/L (21-32); CHLORIDE 106 MMOL/L (98-107); CREATININE SERUM 0.67 MG/DL (0.60-1.30); GFR ESTIMATED > 60; GLUCOSE 144 MG/DL (70-105); POTASSIUM 3.9 MMOL/L (3.6-5.0); SODIUM 138 MMOL/L (135-145); TOTAL PROTEIN 6.8 GM/DL (6.4-8.2)
[2017-10-20 14:16] LABS: BASOPHILS % (AUTO) 1 % (0-10); EOSINOPHILS # (AUTO) 0.3 10^3/uL (0.0-0.3); EOSINOPHILS % (AUTO) 4 % (0-10); HEMATOCRIT 41 % (40-54); HEMOGLOBIN 14.4 G/DL (13.3-17.7); LYMPHOCYTES # (AUTO) 0.7 X 10^3 (1.0-4.0); LYMPHOCYTES % (AUTO) 10 % (12-44); MEAN CORPUSCULAR HEMOGLOBIN 32 PG (25-34); MEAN CORPUSCULAR HGB CONC 35 G/DL (32-36); MEAN CORPUSCULAR VOLUME 91 FL (80-99); MONOCYTES # (AUTO) 0.7 X 10^3 (0.0-1.0); MONOCYTES % (AUTO) 10 % (0-12); NEUTROPHILS # (AUTO) 5.4 X 10^3 (1.8-7.8); NEUTROPHILS % (AUTO) 75 % (42-75); PLATELET COUNT 192 10^3/uL (130-400); RED BLOOD COUNT 4.46 10^6/uL (4.35-5.85); WHITE BLOOD COUNT 7.1 10^3/uL (4.3-11.0)
[2017-10-20 14:30] LABS: ALANINE AMINOTRANSFERASE 10 U/L (0-55); ALKALINE PHOSPHATASE 50 U/L (40-136); BILIRUBIN,TOTAL 0.5 MG/DL (0.1-1.0); BUN/CREATININE RATIO 18; CALCIUM 9.2 MG/DL (8.5-10.1); CARBON DIOXIDE 24 MMOL/L (21-32); CHLORIDE 105 MMOL/L (98-107); GFR ESTIMATED > 60; GLUCOSE 100 MG/DL (70-105); MAGNESIUM 2.4 MG/DL (1.8-2.4); POTASSIUM 4.1 MMOL/L (3.6-5.0); SODIUM 137 MMOL/L (135-145); TOTAL PROTEIN 6.4 GM/DL (6.4-8.2)
[2017-10-27 13:56] LABS: BASOPHILS % (AUTO) 1 % (0-10); EOSINOPHILS # (AUTO) 0.2 10^3/uL (0.0-0.3); EOSINOPHILS % (AUTO) 6 % (0-10); HEMATOCRIT 40 % (40-54); HEMOGLOBIN 14.5 G/DL (13.3-17.7); LYMPHOCYTES # (AUTO) 0.6 X 10^3 (1.0-4.0); LYMPHOCYTES % (AUTO) 15 % (12-44); MEAN CORPUSCULAR HEMOGLOBIN 33 PG (25-34); MEAN CORPUSCULAR HGB CONC 36 G/DL (32-36); MEAN CORPUSCULAR VOLUME 91 FL (80-99); MEAN PLATELET VOLUME 9.2 FL (7.4-10.4); MONOCYTES # (AUTO) 0.6 X 10^3 (0.0-1.0); MONOCYTES % (AUTO) 17 % (0-12); NEUTROPHILS # (AUTO) 2.2 X 10^3 (1.8-7.8); NEUTROPHILS % (AUTO) 61 % (42-75); PLATELET COUNT 161 10^3/uL (130-400); RED BLOOD COUNT 4.43 10^6/uL (4.35-5.85); RED CELL DISTRIBUTION WIDTH 12.9 % (10.0-14.5); WHITE BLOOD COUNT 3.7 10^3/uL (4.3-11.0)
[2017-10-27 14:13] LABS: BUN/CREATININE RATIO 18; CALCIUM 9.1 MG/DL (8.5-10.1); CARBON DIOXIDE 25 MMOL/L (21-32); CHLORIDE 103 MMOL/L (98-107); CREATININE SERUM 0.77 MG/DL (0.60-1.30); GFR ESTIMATED > 60; GLUCOSE 136 MG/DL (70-105); SODIUM 137 MMOL/L (135-145)
[2017-11-04 14:13] LABS: BASOPHILS % (AUTO) 0 % (0-10); EOSINOPHILS # (AUTO) 0.2 10^3/uL (0.0-0.3); EOSINOPHILS % (AUTO) 3 % (0-10); HEMATOCRIT 40 % (40-54); HEMOGLOBIN 14.3 G/DL (13.3-17.7); LYMPHOCYTES # (AUTO) 0.3 X 10^3 (1.0-4.0); LYMPHOCYTES % (AUTO) 6 % (12-44); MEAN CORPUSCULAR HEMOGLOBIN 33 PG (25-34); MEAN CORPUSCULAR HGB CONC 36 G/DL (32-36); MEAN CORPUSCULAR VOLUME 92 FL (80-99); MEAN PLATELET VOLUME 9.7 FL (7.4-10.4); MONOCYTES # (AUTO) 0.9 X 10^3 (0.0-1.0); MONOCYTES % (AUTO) 16 % (0-12); NEUTROPHILS # (AUTO) 4.1 X 10^3 (1.8-7.8); NEUTROPHILS % (AUTO) 75 % (42-75); PLATELET COUNT 122 10^3/uL (130-400); RED BLOOD COUNT 4.33 10^6/uL (4.35-5.85); RED CELL DISTRIBUTION WIDTH 13.5 % (10.0-14.5); WHITE BLOOD COUNT 5.5 10^3/uL (4.3-11.0)
[2017-11-04 14:38] LABS: ALANINE AMINOTRANSFERASE 27 U/L (0-55); ALBUMIN 3.5 GM/DL (3.2-4.5); ALKALINE PHOSPHATASE 62 U/L (40-136); BILIRUBIN,TOTAL 0.3 MG/DL (0.1-1.0); BUN/CREATININE RATIO 16; CALCIUM 8.5 MG/DL (8.5-10.1); CARBON DIOXIDE 27 MMOL/L (21-32); CHLORIDE 105 MMOL/L (98-107); CREATININE SERUM 0.73 MG/DL (0.60-1.30); GFR ESTIMATED > 60; GLUCOSE 152 MG/DL (70-105); POTASSIUM 3.8 MMOL/L (3.6-5.0); SODIUM 138 MMOL/L (135-145)
[~2017-11-11] VITALS: Ht 190.5 cm; Wt 83.9 kg
[~2017-11-11] MED LIST changes: +D5W 500 ML IV (CANCER CTR) 500 ML IV SCH; +FLUOROURACIL IV SCH; +HYDR-3820 PO; +LEUCOVORIN CALCIUM IV SCH; +NS IV SCH; +OXALIPLATIN 180 MG in D5W 250 ML IVPB (CANCER CTR) 250 ML IV SCH; +PALONOSETRON HCL 0.25 MG, DEXAMETHASONE PF INJ (CANCER C 10 MG in NS (IVPB) CANCER CENT... IV SCH; +[UNRECOGNIZED DRUG - OTHER] IV SCH
[2017-11-11 14:15] LABS: BASOPHILS % (AUTO) 1 % (0-10); EOSINOPHILS # (AUTO) 0.2 10^3/uL (0.0-0.3); EOSINOPHILS % (AUTO) 5 % (0-10); HEMATOCRIT 40 % (40-54); HEMOGLOBIN 14.3 G/DL (13.3-17.7); LYMPHOCYTES # (AUTO) 0.3 X 10^3 (1.0-4.0); LYMPHOCYTES % (AUTO) 7 % (12-44); MEAN CORPUSCULAR HEMOGLOBIN 33 PG (25-34); MEAN CORPUSCULAR HGB CONC 36 G/DL (32-36); MEAN CORPUSCULAR VOLUME 91 FL (80-99); MEAN PLATELET VOLUME 9.3 FL (7.4-10.4); MONOCYTES # (AUTO) 0.8 X 10^3 (0.0-1.0); MONOCYTES % (AUTO) 18 % (0-12); NEUTROPHILS # (AUTO) 2.9 X 10^3 (1.8-7.8); NEUTROPHILS % (AUTO) 70 % (42-75); PLATELET COUNT 136 10^3/uL (130-400); RED BLOOD COUNT 4.39 10^6/uL (4.35-5.85); RED CELL DISTRIBUTION WIDTH 13.5 % (10.0-14.5); WHITE BLOOD COUNT 4.2 10^3/uL (4.3-11.0)
[2017-11-11 14:35] LABS: BUN/CREATININE RATIO 13; CALCIUM 8.7 MG/DL (8.5-10.1); CARBON DIOXIDE 25 MMOL/L (21-32); CHLORIDE 107 MMOL/L (98-107); CREATININE SERUM 0.69 MG/DL (0.60-1.30); GFR ESTIMATED > 60; GLUCOSE 106 MG/DL (70-105); SODIUM 139 MMOL/L (135-145)
== END | disposition home or self-care (01) ==
LOC: ONC 08-13 08:00
PROVIDERS: ATTEND Internal Medicine Hematology & Oncology
DX: Z51.0 Encounter for antineoplastic radiation therapy (principal); Z51.11 Encounter for antineoplastic chemotherapy; C15.5 Malignant neoplasm of lower third of esophagus; E11.9 Type 2 diabetes mellitus without complications; I10 Essential (primary) hypertension; R13.12 Dysphagia, oropharyngeal phase; F12.90 Cannabis use, unspecified, uncomplicated; Z87.891 Personal history of nicotine dependence; Z79.84 Long term (current) use of oral hypoglycemic drugs; Z79.899 Other long term (current) drug therapy
CPT/HCPCS: 36415; 36591; 77290; 77295; 77300; 77307; 77334; 77336; 77417; 77470; 80048; 80053; 82565; 83735; 84520; 85025; 96368; 96375; 96411; 96413; 96415; 96416; 99204; 99213; 99214

== ENCOUNTER 2017-11-18 23:25 | Emergency (ER) | payer OTHER ==
[~2017-11-18] VITALS: Ht 185.4 cm; Wt 81.6 kg
[~2017-11-18 23:25] MED LIST changes: -D5W 500 ML IV (CANCER CTR) 500 ML IV SCH; -FLUOROURACIL IV SCH; -LEUCOVORIN CALCIUM IV SCH; -NS IV SCH; -OXALIPLATIN 180 MG in D5W 250 ML IVPB (CANCER CTR) 250 ML IV SCH; -PALONOSETRON HCL 0.25 MG, DEXAMETHASONE PF INJ (CANCER C 10 MG in NS (IVPB) CANCER CENT... IV SCH; -[UNRECOGNIZED DRUG - OTHER] IV SCH
[2017-11-18 23:55] VITALS: BP 125/88
--- OUTSIDE RECORDS SUMMARY | 2017-11-19 01:43 | XMS REPORT | Encounter Summary ---
Author Author [facility] Organization [facility] Address Unknown Phone Unavailable Care Team Providers Care Supervisor Sunglasses Name Role Phone PCP Unavailable Reason for Referral * Consult, Test & Treat Status Reason Specialty Diagnoses / Referred By Referred To Procedures Contact Contact New Request Specialty Gastroenterology Diagnoses Brinda Diaz Mojtaba, Services Malignant ILA Woods MD Required neoplasm of [address], Bl[address] [place] [address] unspecified [place] [address] [place], [place] location (HCC) [place] [phone] Phone: Encounter Details Date Type Department Care Team Description 09/01/2017 Orders Only [facility] Peggy Diaz Malignant neoplasm of Physicians ILA esophagus, unspecified Ortho and Medical [address] location (HCC) ([facility] Level 2B [place] [address] Dx) [address] [place] [address] [place], [place] [phone] [phone] Social History Tobacco Use Types Packs/Day Years [...]
--- OUTSIDE RECORDS SUMMARY | 2017-11-19 01:43 | XMS REPORT | Encounter Summary ---
Author Author [facility] Organization [facility] Address Unknown Phone Unavailable Care Team Providers Care Telephone Triage Nurse Name Role Phone PCP Unavailable Reason for Visit * Reason Comments Appointment Encounter Details Date Type Department Care Team Description 09/02/2017 Telephone [facility] Abner Adrian MD Appointment [facility] [address] [facility] [place] [address] [place] [address] [facility] [phone] [place], [place] [phone] Social History Tobacco Use Types Packs/Day Years Used Date Never Assessed Sex Assigned at Date Recorded Not on file as of this encounter Miscellaneous Notes * Telephone Encounter - Amira Mora RN - 09/02/2017 10:02 AM CDT Called Libia to clarify referral. She states that j [...]
--- OUTSIDE RECORDS SUMMARY | 2017-11-19 01:43 | XMS REPORT | Encounter Summary ---
Author Author [facility] Organization [facility] Address Unknown Phone Unavailable Care Team Providers Care On Air Announcer Name Role Phone Corie West MD PCP Yony Delong DO Unavailable Neto Vanegas MD Unavailable David Dan MD Unavailable Reason for Visit * Reason Comments Error Encounter Details Date Type Department Care Team Description 09/18/2017 Telephone [facility] Abner Adrian MD [employer] [facility] [address] [facility] [place] [address] [place] [address] [address] [facility] [phone] [place] [address] [phone] Social History Tobacco Use Types Packs/Day Years Used Date Never Assessed Sex Assigned at Date Recorded Not on file as of this encounter Plan of Treatment Not on fileas of this encounter Visit Diagnoses Not on filein this encounter
--- OUTSIDE RECORDS SUMMARY | 2017-11-19 01:43 | XMS REPORT | Encounter Summary ---
Author Author [facility] Organization [facility] Address Unknown Phone Unavailable Care Team Providers Care Food Storeroom Clerk Name Role Phone Corie West MD PCP Yony Delong DO Unavailable Neto Vanegas MD Unavailable David Dan MD Unavailable Encounter Details Date Type Department Care Team Description 09/16/2017 Ancillary Rad Outpatient, Radiologist Diagnosis unknown Orders [address] [place] [address] Social History Tobacco Use Types Packs/Day Years Used Date Never Assessed Sex Assigned at Date Recorded Not on file as of this encounter Plan of Treatment Not on fileas of this encounter Results * NM PET/CT EXTERNAL IMAGING (08/25/2017) Narrative Performed At This order has been auto finalized and does not contain a result. * CT CHEST EXTERNAL IMAGING (08/17/2017) Narrative Performed At This order has been auto finalized and does not contain a result. * GENERAL RAD MISC EXTERNAL IMAGING (07/29/2017) Narrative Performed At This order has been auto finalized and does not contain a result. in this encounter Visit Diagnoses Diagnosis Diagnosis unknown Other unknown and unspecified cause of morbidity or mortality
--- OUTSIDE RECORDS SUMMARY | 2017-11-19 01:43 | XMS REPORT | Clinical Summary ---
Author Author [facility] Organization [facility] Address Unknown Phone Unavailable Care Team Providers Care Film Archivist Name Role Phone Corie West MD PCP Yony Delong DO Unavailable Neto Vanegas MD Unavailable David Dan MD Unavailable Source Comments Some departments are not documenting in the electronic medical record. If you do not see the information that you expected, contact Release of Information in the Health Information Management department at [phone] for further assistance in locating additional records.[facility] Allergies Active Allergy Reactions Severity Noted Date Comments Penicillins UNKNOWN Low Current Medications Prescription Sig. Disp. Refills Start End Date Status Date amitriptyline (ELAVIL) Bedtime Active 100 mg tablet metFORMIN (GLUCOPHAGE) TAKE TWO TABLETS BY MOUTH Active 500 mg tablet TWICE DAILY WITH MORNING AND EVENING MEALS Active Problems Problem Noted Date Malignant neoplasm of esophagus (HCC) 09/01/2017 Encounters Date Type Specialty Care Team Description 09/23/2017 Office Visit Oncology Abner Adrian MD Cancer of lower third of esophagus (HCC) (Primary Dx) 09/23/2017 Telephone Oncology Abner Adrian MD Navigation Follow Up 09/18/2017 Telephone Oncology Abner Adrian MD Error 09/16/2017 Ancillary Radiology Outpatient, Radiologist Diagnosis unknown Orders 09/10/2017 Telephone Oncology Abner Adrian MD Appointment 09/02/2017 Telephone Oncology Abner Adrian MD Appointment 09/01/2017 Telephone Gastroenterology Lelia Moreno Appointment Request (EUS ) 09/01/2017 Orders Only Gastroenterology Abiel-Heaters, Peggy, Malignant neoplasm of [employer] [place] esophagus, unspecified location (HCC) (Primary Dx) 08/31/2017 Telephone Oncology Sophia Patel, MIO Navigation Assessment 08/25/2017 Hospital Radiology Encounter from Last 3 Months Family History Medical History Relation Name Comments Cancer Neg Hx Social History Tobacco Use Types Packs/Day Years Used Date Never Smoker Smokeless Tobacco: Never Used Alcohol Use Drinks/Week oz/Week Comments No Sex Assigned at Date Recorded Not on file Last Filed Vital Signs Vital Sign Reading Time Taken Blood Pressure 102/67 09/23/2017 2:33 PM CDT Pulse 92 09/23/2017 2:33 PM CDT Temperature 36.9 C (98.4 F) 09/23/2017 2:33 PM CDT Respiratory Rate 16 09/23/2017 2:33 PM CDT Oxygen Saturation 99% 09/23/2017 2:33 PM CDT Inhaled Oxygen - - Concentration Weight 83.7 kg (184 lb 9.6 oz) 09/23/2017 2:33 PM CDT Height 185.2 cm (6' 0.91") 09/23/2017 2:33 PM CDT Body Mass Index 24.41 09/23/2017 2:33 PM CDT Plan of Treatment Health Maintenance Due Date Last Done Comments PHYSICAL (COMPREHENSIVE) 11/06/1974 EXAM PERTUSSIS VACCINE 11/06/1978 HIV SCREENING 11/06/1982 TETANUS VACCINE 11/06/1984 COLORECTAL CANCER 11/06/2017 SCREENING SHINGLES RECOMBINANT 11/06/2017 VACCINE (1 of 2) INFLUENZA VACCINE 01/18/2018 Results * NM PET/CT EXTERNAL IMAGING (08/25/2017) Narrative Performed At This order has been auto finalized and does not contain a result. from Last 3 Months
--- OUTSIDE RECORDS SUMMARY | 2017-11-19 01:43 | XMS REPORT | Encounter Summary ---
Author Author [facility] Organization [facility] Address Unknown Phone Unavailable Care Team Providers Care Local Announcer Name Role Phone PCP Unavailable Reason for Visit * Reason Comments Appointment Request EUS Encounter Details Date Type Department Care Team Description 09/01/2017 Telephone [facility] Lelia Moreno Appointment Request (EUS Physicians ) [facility] [address] [place] [address] Social History Tobacco Use Types [...] PM CDT Patient uninsured - transferred to [place] to set up payments. Once cleared through financial, can schedule EUS. Notified Sophia LIEBERMAN from cancer center. in this encounter Plan of Treatment Not on fileas of this encounter Visit Diagnoses Not on filein this encounter
--- OUTSIDE RECORDS SUMMARY | 2017-11-19 01:43 | XMS REPORT | Encounter Summary ---
Author Author [facility] Organization [facility] Address Unknown Phone Unavailable Care Team Providers Care Head Sampler Name Role Phone Corie West MD PCP Yony Delong DO Unavailable Neto Vanegas MD Unavailable David Dan MD Unavailable Reason for Visit * Reason Comments Heme/Onc Care esophageal cancer * Consult, Test & Treat (Routine) Status Reason Specialty Diagnoses / Referred By Referred To Procedures Contact Contact New Request General Surgery / Diagnoses Neto Vanegas MD Al- [place], Oncology esophageal 1 [facility] MD Abner P [place], [place] [address] rocedures [address] [place] [address] NEW PATIENT Phone: [place], [place] [phone] [address] Fax: Encounter Details Date Type Department Care Team Description 09/23/2017 Office Visit [facility] Abner Adrian MD [facility] Exam [address] esophagus (HCC) (Primary [facility] [address] Dx) [address] [place] [address] [address] [facility] [phone] [place], [place] [phone] Social History Tobacco Use Types Packs/Day Years Used Date Never Smoker Smokeless Tobacco: Never Used Alcohol Use Drinks/Week oz/Week Comments No Sex Assigned at Date Recorded Not on file as of this encounter Last Filed Vital Signs Vital Sign Reading [...] Mass Index 24.41 09/23/2017 2:33 PM CDT in this encounter Progress Notes * Abner Adrian MD - 09/23/2017 8:40 AM CDT Formatting of this note may be different from the original. Name: Collin Fink : 1965 AGE: 51 y.o. DATE OF SERVICE: 09/23/2017 Subjective: Reason for Visit: Esophageal cancer Heme/Onc Care Collin Fink is a 51 y.o. male. Cancer Staging No matching staging information was found for the patient. History of Present Illness Collin Fink is a 51 year old male referred by Dr. Vanegas for new diagnosis of moderately differentiated distal esophageal adenocarcinoma. Mr. Fink reports a year long history of progressive dysphagia. He also reports a 135 lb weight loss in 1.5 years which he reports is intentional by eating healthy and working out. An irregularity and luminal narrowing of the distal esophagus was demonstrated on a barium swallow in early July. He underwent an EGD and EUS on 09/04/17 which demonstrated an obstructing circumferential distal esophageal mass starting at 32 cm staged as a T3N3 tumor. The mass obliterated all layers of the esophageal wall and extended into the paraesophageal fat tissues. 2 lymph nodes were noted adjacent to the azygous vein and at least 3 additional lymph nodes were noted to be abnormal. Biopsy was positive for moderately differentiated adenocarcinoma. Mr. Fink was seen by Dr. Peguero (medical oncology ) in consult. He underwent an open J tube placement and port placement at [facility] on 09/07/2017. He has not used his J tube for tube feeds because he feels like he can keep up with his caloric intake via PO. There is no evidence of pulmonary or abdominopelvic metastatic disease on imaging. CT abdomen/pelvis on 08/17/17: 1. Distal esophageal circumferential wall thickening consistent with the patient 's diagnosis of esophageal carcinoma. No thoracic lymphadenopathy or evidence of pulmonary metastatic disease is identified. 2. Unremarkable CT of the abdomen and pelvis. No findings to suggest metastatic disease are identified. PET on 08/25/17: 1. There is intense hypermetabolic activity involving the distal third of the esophagus in the region of the circumferential wall thickening. 2. There are also two small hypermetabolic nodes in the azygoesophageal recess. 3. There is no other hypermetabolic activity to suggest the presence of neoplasm. Mr. Fink denies a history of abdominal surgery except for recent open J tube placement. He denies a history of smoking. He reports occasional drinking. He denies a family history of esophageal cancer. Past Medical History: Diagnosis Date Cancer of esophagus (HCC) Diabetes mellitus (HCC) Past Surgical History: Procedure Laterality Date JEJUNOSTOMY TUBE PLACEMENT Family History Problem Relation Age of Onset Cancer Neg Hx Social History Social History Marital status: Spouse name: N/A Number of children: N/A Years of education: N/A Social History Main Topics Smoking status: Never Smoker Smokeless tobacco: Never Used Alcohol use No Drug use: Yes Types: Marijuana Comment: Daily Sexual activity: Not on file Other Topics Concern Not on file Social History Narrative No narrative on file Review of Systems Constitutional: Negative for fever, chills, appetite change and fatigue. HENT: Negative for hearing loss, congestion, rhinorrhea and tinnitus. Eyes: Negative for pain, discharge and itching. Respiratory: Negative for cough, chest tightness and shortness of breath. Cardiovascular: Negative for chest pain and palpitations. Gastrointestinal: Negative for abdominal distention, nausea, vomiting, and diarrhea. + abdominal pain at incision site, + secretions, + dysphagia Genitourinary: Negative for frequency, difficulty urinating and pelvic pain. Musculoskeletal: Negative for myalgias, back pain, joint swelling and arthralgias. Skin: Negative for rash. Neurological: Negative for dizziness, weakness, light-headedness and headaches. Hematological: Does not bruise/bleed easily. Psychiatric/Behavioral: Negative for disturbed wake/sleep cycle. The patient is not nervous/anxious. The remainder of the complete 12-point comprehensive ROS is otherwise entirely negative. Objective: amitriptyline (ELAVIL) 100 mg tablet Bedtime metFORMIN (GLUCOPHAGE) 500 mg tablet TAKE TWO TABLETS BY MOUTH TWICE DAILY WITH MORNING AND EVENING MEALS Vitals: 09/23/17 1433 BP: 102/67 Pulse: 92 Resp: 16 Temp: 36.9 C (98.4 F) TempSrc: Oral SpO2: 99% Weight: 83.7 kg (184 lb 9.6 oz) Height: 185.2 cm (72.91") Body mass index is 24.41 kg/m. Pain Score: Zero Physical Exam Constitutional: He is oriented to person, place, and time. He appears well- developed and well-nourished. No distress. HENT: Head: Normocephalic and atraumatic. Mouth/Throat: No oropharyngeal exudate. Eyes: Conjunctivae and EOM are normal. Pupils are equal, round, and reactive to light. Right eye exhibits no discharge. Left eye exhibits no discharge. No scleral icterus. Neck: Normal range of motion. Neck supple. No JVD present. No tracheal deviation present. No thyromegaly present. Cardiovascular: Normal rate and regular rhythm. Pulmonary/Chest: Effort normal and breath sounds normal. No stridor. Abdominal: Soft. Bowel sounds are normal. He exhibits no distension and no mass. There is no tenderness. There is no rebound and no guarding. No hernia. Well approximated small midline incision with matias in place. J tube in place. Musculoskeletal: Normal range of motion. He exhibits no deformity. Lymphadenopathy: He has no cervical adenopathy. Neurological: He is alert and oriented to person, place, and time. Skin: Skin is warm and dry. No rash noted. He is not diaphoretic. No erythema. No pallor. Psychiatric: He has a normal mood and affect. His behavior is normal. Judgment and thought content normal. Vitals reviewed. Assessment and Plan: Collin Fink is a 51 year old male referred by Dr. Vanegas for new diagnosis of moderately differentiated distal esophageal adenocarcinoma. Mr. Fink reports a year long history of progressive dysphagia. He also reports a 135 lb weight loss in 1.5 years which he reports is intentional by eating healthy and working out. An irregularity and luminal narrowing of the distal esophagus was demonstrated on a barium swallow in early July. He underwent an EGD and EUS on 09/04/17 which demonstrated an obstructing circumferential distal esophageal mass starting at 32 cm staged as a T3N3 tumor. The mass obliterated all layers of the esophageal wall and extended into the paraesophageal fat tissues. 2 lymph nodes were noted adjacent to the azygous vein and at least 3 additional lymph nodes were noted to be abnormal. Biopsy was positive for moderately differentiated adenocarcinoma. Mr. Fink was seen by Dr. Peguero (medical oncology ) in consult. He underwent an open J tube placement and port placement at [facility] on 09/07/2017. He has not used his J tube for tube feeds because he feels like he can keep up with his caloric intake via PO. There is no evidence of pulmonary or abdominopelvic metastatic disease on imaging. Plan: 1. Recommend neoadjuvant chemoradiation which was discussed with Dr. Vanegas. 2. Recommend Mr. Fink use his J tube to supplement his nutrition if he continues to loose weight. 3. RTC for reevaluation in 2 months after completion of chemoradiation. Ileana Ayon DO ATTESTATION I personally performed the marquis portions of the E/M visit, discussed case with resident and concur with resident documentation of history, physical exam, assessment, and treatment plan unless otherwise noted. The rationale for this approach was discussed with the patient, who understood and seemed comfortable with the plan and recommendations. I answered all questions to the patient's satisfaction. Staff name: Abner Adrian MD Date: 09/26/2017 in this encounter Plan of Treatment Not on fileas of this encounter Visit Diagnoses Diagnosis Cancer of lower third of esophagus (HCC) - Primary Malignant neoplasm of lower third of esophagus
--- OUTSIDE RECORDS SUMMARY | 2017-11-19 01:43 | XMS REPORT | Encounter Summary ---
Author Author [facility] Organization [facility] Address Unknown Phone Unavailable Care Team Providers Care State Manager Name Role Phone Corie West MD PCP Yony Delong DO Unavailable Neto Vanegas MD Unavailable David Dan MD Unavailable Reason for Visit * Reason Comments Navigation Follow Up Encounter Details Date Type Department Care Team Description 09/23/2017 Telephone [facility] Abner Adrian MD Navigation Follow Up [facility] Ex[facility] [address] [facility] [address] [place] [address] [address] [facility] [phone] [place] [address] [phone] Social History Tobacco Use Types Packs/Day Years Used Date Never Smoker Smokeless Tobacco: Never Used Alcohol Use Drinks/Week oz/Week Comments No Sex Assigned at Date Recorded Not on file as of this encounter Plan of Treatment Not on fileas of this encounter Visit Diagnoses Not on filein this encounter
--- OUTSIDE RECORDS SUMMARY | 2017-11-19 01:43 | XMS REPORT | Encounter Summary ---
Author Author [facility] Organization [facility] Address Unknown Phone Unavailable Care Team Providers Care Elevator Tender Name Role Phone PCP Unavailable Reason for Visit * Reason Comments Appointment Encounter Details Date Type Department Care Team Description 09/10/2017 Telephone [facility] Abner Adrian MD Appointment Cancer Center - Exam [address] [facility] [address] [place] [address] [address] [facility] [phone] [place], [place] [phone] Social History Tobacco Use Types Packs/Day Years Used Date Never Assessed Sex Assigned at Date Recorded Not on file as of this encounter Miscellaneous Notes * Telephone Encounter - Amira Mora RN - 09/10/2017 2:12 PM CDT Left VM for patient to call. in this encounter Plan of Treatment Not on fileas of this encounter Visit Diagnoses Not on filein this encounter
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
--- OUTSIDE RECORDS SUMMARY | 2017-11-19 01:44 | XMS REPORT | Encounter Summary ---
Author Author [facility] Address Unknown Phone Unavailable Care Team Providers Care Associate Director Of Nursing Name Role Phone Corie West MD PCP Yony Delong DO Unavailable Neto Vanegas MD Unavailable David Dan MD Unavailable Reason for Referral * Consult, Test & Treat (Routine) Status Reason Specialty Diagnoses / Referred By Referred To Procedures Contact Contact Canceled Specialty Diagnoses Kaylah Services Malignant MD Abner Required neoplasm of [address], [address] unspecified [place] 2005 location ([facility]) [place] [address] Reason for Visit * Reason Comments Navigation Assessment Encounter Details Date Type Department Care Team Description 08/31/2017 Telephone [facility] Sophia Patel RN Navigation Assessment Cancer [facility] - Exam [place] [facility] [address] [place] [address] Social History Tobacco Use Types Packs/Day Years Used Date Never Assessed Sex Assigned at Date Recorded Not on file as of this encounter Miscellaneous Notes * Telephone Encounter - Amira Mora RN - 09/17/2017 1:23 PM CDT Formatting of this note may be different from the original. Navigation Intake Assessment Document Patient Name: Collin Fink : 1965 Insurance: Appointment Info: Future Appointments Date Time Provider Department Center 09/23/2017 8:40 AM Abner Adrian MD [facility] Exam Diagnosis & Reason for Visit: Esophageal cancer Physician Info: Referring Physician: Dr Vanegas [phone] Oncology Location of Films: PACS Location of Pathology: Path specimen not requested. Please notify navigation if path specimen is needed to confirm dx or for additional testing. History of Present Illness: 07/29/2017 Barium Swallow 08/06/2017 EGD 08/07/2107 Path- mod diff adeno ca 08/15/2017 Oncology Consult 08/17/2017 CT A/P 08/25/2017 PET- 09/04/2017EGD/EUS-obstructing mass in distal esophagus 09/07/2017 J tube and port placement - Via [facility] NEEDS Assessment: Genetic Counseling: Not Applicable Nutrition: Obstructed esophagus. Unable to fully assess nutritional status. Only spoke to SO. New J tube placement. Defer nutrition management to primary oncologist. , Patient reports a recent weight loss of > 10lbs without trying and Patient reports eating poorly due to loss of appetite or physical problem Have you recently lost weight without trying?: Yes If yes, how much weight have you lost?: unknown Weight Loss Score: 2-13lb=1 14-23 lb=2 24-33 lb=3 34lb=4 Unsure=2 Have you been eating poorly because of a decreased appetite?: yes Appetite Score: 1 No=0 Yes=1 MST Score: 1 + (Add weight loss and appetite scores) MST score of 2 or more=At Risk Social Work/Financial: Uninsured, Ok to proceed with appointment per [employer] finance. Ex - [place] is assisting with appointments and coordination of care. and Financial concerns Spiritual & Emotional: Emotional support provided Physical: No needs identified Communication: No needs identified Oncofertility - Females age 40 and under; Males age 50 and under : Not applicable * Telephone Encounter - Sophia Patel RN - 09/01/2017 7:23 PM CDT Obtained referral on 08/28/17. Patient was authorized by and was reached by navigation IC to [...] given the number for roberta at the [facility]. This RN followed up with the patient. He stated that he "cleared" by [facility] for services there. INformed patient that [facility] is a different facility than , he's [...]
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
--- OUTSIDE RECORDS SUMMARY | 2017-11-19 01:44 | XMS REPORT | Encounter Summary ---
Author Author [facility] Organization [facility] Address Unknown Phone Unavailable Care Team Providers Care Bag Repairer Name Role Phone PCP Unavailable Encounter Details Date Type Department Care Team Description 08/25/2017 Hospital [facility] 2nd fl [address] [place] [address] Social History Tobacco Use Types Packs/Day Years [...]
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
== END 2017-11-19 00:55 | disposition left against medical advice (07) ==
LOC: EDUNIT# 23:25 → ER 23:28
DX: G89.3 Neoplasm related pain (acute) (chronic) (principal); C15.3 Malignant neoplasm of upper third of esophagus; I10 Essential (primary) hypertension; F41.9 Anxiety disorder, unspecified; E11.9 Type 2 diabetes mellitus without complications; Z87.19 Personal history of other diseases of the digestive system; Z87.820 Personal history of traumatic brain injury; Z90.89 Acquired absence of other organs; Z91.19 Patient's noncompliance with other medical treatment and regimen
CPT/HCPCS: 99282

== ENCOUNTER 2017-12-04 13:56 | Outpatient (RCR) | payer OTHER ==
[~2017-12-04 13:56] MED LIST changes: +D5W 500 ML IV (CANCER CTR) 500 ML IV SCH; +FLUOROURACIL IV SCH; +LEUCOVORIN CALCIUM IV SCH; +METF-399 PO; -METF10002 PO; +NS IV SCH; +OXALIPLATIN 180 MG in D5W 250 ML IVPB (CANCER CTR) 250 ML IV SCH; +PALONOSETRON HCL 0.25 MG, DEXAMETHASONE PF INJ (CANCER C 10 MG in NS (IVPB) CANCER CENT... IV SCH; +[UNRECOGNIZED DRUG - OTHER] IV SCH
[2017-12-04 14:47] LABS: BASOPHILS # (AUTO) 0.1 10^3/uL (0.0-0.1); BASOPHILS % (AUTO) 1 % (0-10); EOSINOPHILS # (AUTO) 0.2 10^3/uL (0.0-0.3); EOSINOPHILS % (AUTO) 2 % (0-10); HEMATOCRIT 39 % (40-54); HEMOGLOBIN 13.7 G/DL (13.3-17.7); LYMPHOCYTES # (AUTO) 0.5 X 10^3 (1.0-4.0); LYMPHOCYTES % (AUTO) 6 % (12-44); MEAN CORPUSCULAR HEMOGLOBIN 33 PG (25-34); MEAN CORPUSCULAR HGB CONC 35 G/DL (32-36); MEAN CORPUSCULAR VOLUME 93 FL (80-99); MEAN PLATELET VOLUME 8.8 FL (7.4-10.4); MONOCYTES # (AUTO) 0.8 X 10^3 (0.0-1.0); MONOCYTES % (AUTO) 11 % (0-12); NEUTROPHILS # (AUTO) 6.1 X 10^3 (1.8-7.8); NEUTROPHILS % (AUTO) 80 % (42-75); PLATELET COUNT 317 10^3/uL (130-400); RED BLOOD COUNT 4.17 10^6/uL (4.35-5.85); WHITE BLOOD COUNT 7.6 10^3/uL (4.3-11.0)
[2017-12-04 15:08] LABS: ALANINE AMINOTRANSFERASE 30 U/L (0-55); ALBUMIN 3.7 GM/DL (3.2-4.5); ALKALINE PHOSPHATASE 73 U/L (40-136); BILIRUBIN,TOTAL 0.3 MG/DL (0.1-1.0); BUN/CREATININE RATIO 11; CALCIUM 9.1 MG/DL (8.5-10.1); CARBON DIOXIDE 26 MMOL/L (21-32); CHLORIDE 103 MMOL/L (98-107); GFR ESTIMATED > 60; GLUCOSE 115 MG/DL (70-105); SODIUM 138 MMOL/L (135-145); TOTAL PROTEIN 6.7 GM/DL (6.4-8.2)
[2017-12-19] MEDS ORDERED: POLY119P5 PO (18:42)
== END 2018-01-21 16:47 | disposition home or self-care (01) ==
LOC: ONC 13:56
PROVIDERS: ATTEND Internal Medicine Hematology & Oncology
DX: Z51.0 Encounter for antineoplastic radiation therapy (principal); C15.5 Malignant neoplasm of lower third of esophagus; E11.9 Type 2 diabetes mellitus without complications; I10 Essential (primary) hypertension; R13.12 Dysphagia, oropharyngeal phase; F12.90 Cannabis use, unspecified, uncomplicated; Z87.891 Personal history of nicotine dependence; Z79.84 Long term (current) use of oral hypoglycemic drugs; Z79.899 Other long term (current) drug therapy
CPT/HCPCS: 36591; 77336; 77417; 80053; 85025

== ENCOUNTER 2017-12-19 15:40 | Emergency (ER) | payer SELFPAY ==
[~2017-12-19] VITALS: Ht 188 cm; Wt 81.6 kg
[~2017-12-19 15:40] MED LIST changes: -D5W 500 ML IV (CANCER CTR) 500 ML IV SCH; -FLUOROURACIL IV SCH; -LEUCOVORIN CALCIUM IV SCH; -NS IV SCH; -OXALIPLATIN 180 MG in D5W 250 ML IVPB (CANCER CTR) 250 ML IV SCH; -PALONOSETRON HCL 0.25 MG, DEXAMETHASONE PF INJ (CANCER C 10 MG in NS (IVPB) CANCER CENT... IV SCH; -[UNRECOGNIZED DRUG - OTHER] IV SCH
[2017-12-19] MEDS ORDERED: NS IV 1000 ML 1,000 ML ONE (15:44)
[2017-12-19] MEDS ORDERED: ONDANSETRON 4 MG/2 ML (SDV) Z0FRAN ONE ×2 (15:44→16:12)
[2017-12-19] MEDS ORDERED: ONDANSETRON 4 MG/2 ML (SDV) Z0FRAN IVP ONE (15:45)
[2017-12-19] MEDS ORDERED: NS IV 1000 ML 1,000 ML IV ONE (15:51)
[2017-12-19 15:52] LABS: BASOPHILS # (AUTO) 0.1 10^3/uL (0.0-0.1); BASOPHILS % (AUTO) 1 % (0-10); EOSINOPHILS # (AUTO) 0.5 10^3/uL (0.0-0.3); EOSINOPHILS % (AUTO) 6 % (0-10); HEMATOCRIT 41 % (40-54); HEMOGLOBIN 14.9 G/DL (13.3-17.7); LYMPHOCYTES # (AUTO) 1.3 X 10^3 (1.0-4.0); LYMPHOCYTES % (AUTO) 15 % (12-44); MEAN CORPUSCULAR HEMOGLOBIN 34 PG (25-34); MEAN CORPUSCULAR HGB CONC 37 G/DL (32-36); MEAN CORPUSCULAR VOLUME 93 FL (80-99); MEAN PLATELET VOLUME 9.5 FL (7.4-10.4); MONOCYTES # (AUTO) 1.3 X 10^3 (0.0-1.0); MONOCYTES % (AUTO) 15 % (0-12); NEUTROPHILS # (AUTO) 5.4 X 10^3 (1.8-7.8); NEUTROPHILS % (AUTO) 63 % (42-75); PLATELET COUNT 258 10^3/uL (130-400); RED BLOOD COUNT 4.37 10^6/uL (4.35-5.85); RED CELL DISTRIBUTION WIDTH 14.7 % (10.0-14.5); WHITE BLOOD COUNT 8.6 10^3/uL (4.3-11.0)
[2017-12-19] MEDS ORDERED: PROMETHAZINE INJ 25 MG/ML (PHENERGAN) AMP IVP ONE ×2 (16:00)
[2017-12-19 16:09] LABS: ALANINE AMINOTRANSFERASE 30 U/L (0-55); ALBUMIN 4.1 GM/DL (3.2-4.5); ALKALINE PHOSPHATASE 72 U/L (40-136); BILIRUBIN,TOTAL 0.4 MG/DL (0.1-1.0); BUN/CREATININE RATIO 19; CALCIUM 9.7 MG/DL (8.5-10.1); CARBON DIOXIDE 19 MMOL/L (21-32); CHLORIDE 105 MMOL/L (98-107); CREATININE SERUM 0.84 MG/DL (0.60-1.30); GFR ESTIMATED > 60; GLUCOSE 146 MG/DL (70-105); MAGNESIUM 2.3 MG/DL (1.8-2.4); POTASSIUM 3.8 MMOL/L (3.6-5.0); SODIUM 139 MMOL/L (135-145); TOTAL PROTEIN 6.8 GM/DL (6.4-8.2)
[2017-12-19 16:15] LABS: MYOGLOBIN SERUM 13.7 NG/ML (10.0-92.0)
[2017-12-19] MEDS ORDERED: NS 250 ML (IVPB) BAG IV ONE (16:30)
[2017-12-19] MEDS ORDERED: IOHEXOL 350 MG/ML 100 ML (OMNIPAQUE 350) VIAL IV ONE (16:30)
[2017-12-19] MEDS ORDERED: CATHETER FLUSH 10 ML SYR IV PRN (16:30)
[2017-12-19 16:54] LABS: OCCULT BLOOD,GASTRIC FLUID NEGATIVE (NEGATIVE)
[2017-12-19 17:01] LABS: PROTHROMBIN TIME PATIENT 13.5 SEC (12.2-14.7)
[2017-12-19 17:20] VITALS: BP 131/80
--- NOTE | 2017-12-19 17:21 | Diagnostic Imaging Report ---
EXAM: Chest 1 view, AP/PA only. INDICATION: Vomiting and weakness. Esophageal cancer. COMPARISON: CT chest, abdomen and pelvis 12/19/2017. FINDINGS: Normal heart size and central pulmonary vascularity. No focal pulmonary opacity, pleural effusion or pneumothorax. No acute osseous findings. Right subclavian tunneled port CVC tip mid SVC. IMPRESSION: No acute cardiopulmonary findings. Dictated by: Dictated on workstation # [id number]
--- NOTE | 2017-12-19 17:25 | Diagnostic Imaging Report ---
PROCEDURE: CT head with and without contrast. TECHNIQUE: Multiple contiguous axial images were obtained through the brain before and after the administration of intravenous contrast. INDICATION: Esophageal cancer. Vomiting. COMPARISON: CT head without contrast 04/01/2017. FINDINGS: No intracranial hemorrhage, mass effect, hydrocephalus or extra-axial fluid collections. No CT evidence of acute infarction. Delayed postcontrast imaging demonstrates no abnormal intracranial enhancement. Osseous structures are intact. The visualized paranasal sinuses and mastoids are clear. IMPRESSION: No acute intracranial CT findings. Dictated by: Dictated on workstation # [id number]
--- NOTE | 2017-12-19 17:34 | Diagnostic Imaging Report ---
PROCEDURE: CT chest, abdomen, and pelvis with contrast. TECHNIQUE: Multiple contiguous axial images were obtained through the chest, abdomen, and pelvis after the administration of intravenous contrast. INDICATION: Esophageal cancer. Vomiting. COMPARISON: Nuclear medicine [facility] PET/CT 08/25/2017. FINDINGS: CT chest: Again seen is the circumferential wall thickening of the distal esophagus. This has modestly improved since the prior exam. There is moderate gaseous distention of the more proximal esophagus. The previously noted lymph node in the azygous recess continues to measure approximately 0.6 cm in short axis dimension. No other lymphadenopathy is identified. 2 mm pulmonary nodule in the right middle lobe laterally (series 3, image 34) is stable compared to the prior exam. No other pulmonary nodule or mass. No pneumothorax or pleural effusion. Right tunneled CVC tip mid SVC. No endobronchial lesions. Normal heart size. No pericardial effusion. No acute osseous findings. No suspicious osteoblastic or lytic lesions. CT abdomen and pelvis: The liver, gallbladder, pancreas, spleen, adrenals, kidneys, collecting systems and partially opacified bladder are negative. There is a catheter entering the midline upper abdomen, anteriorly, which terminates in a loop of small bowel. No free intraperitoneal air or fluid. No lymphadenopathy. No evidence of bowel obstruction. There is a large amount of stool throughout much of the colon. No acute osseous findings. No suspicious osteoblastic or lytic lesions. IMPRESSION: 1. Persistent circumferential wall thickening of the distal esophagus is modestly improved since the prior exam. There is moderate gaseous distention of the more proximal esophagus. 2. No acute CT findings in the chest. 3. Stable 2 mm pulmonary nodule in the right middle lobe, laterally. 4. No acute CT findings in the abdomen or pelvis. No evidence of bowel obstruction. 5. Large amount of stool throughout much of the colon may represent a degree of constipation. Dictated by: Dictated on workstation # [id number]
--- NOTE | 2017-12-19 17:45 | ED General ---
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 HAS J TUBE IN PLACE DUE TO ESOPHAGUS CANCER,BUT STILL ABLE TO TAKE PO.DIAPHORETIC ON ADMIT. Nursing Sepsis Screen: No Definite Risk Source of Information: Patient, Family, Old Records History of Present Illness Date Seen by Provider: Dec 19, 2017 Time Seen by Provider: 15:43 Initial Comments This 52-year-old gentleman presents to the emergency room with sudden onset of severe nausea and vomiting. He appears short of breath. He is in distress from violent retching. He is profoundly diaphoretic. He denies any chest pain. He has chronic abdominal discomfort from esophageal cancer but denies any new abdominal pain. He has recently finished chemotherapy and radiation. He had a follow-up visit at [facility] yesterday. He is awaiting cardiac clearance to have resection of his esophagus. He has a J-tube in place in the left lower abdomen. Patient's reports he has been struggling with lower blood pressures recently. Patient reports he has been feeling lightheaded and dizzy from time to time. Allergies and Home Medications Allergies Coded Allergies: Penicillins (Unverified Allergy, Unknown, 01/01/16) Home Medications Amitriptyline HCl 100 Mg Tablet, 100 MG PO HS, (Reported) Hydrocodone/Acetaminophen 1 Each Tablet, 1 TAB PO Q6H Prescribed by: KAREN NG on 09/07/17 1448 Metformin HCl 1,000 Mg Tablet, 500 MG PO BID, (Reported) take 1/2 of 1000mg tab Polyethylene Glycol 3350 119 Gm Powder, 17 GM PO BID PRN for CONSTIPATION-1ST LINE Fill cap to line. Dissolve in 8-12 liquid. Prescribed by: URIEL GALVAN on 12/19/17 1842 Patient Home Medication List Home Medication List Reviewed: Yes Review of Systems Review of Systems Constitutional: see HPI EENTM: no symptoms reported Respiratory: see HPI Cardiovascular: no symptoms reported; No chest pain Gastrointestinal: see HPI Genitourinary: no symptoms reported Musculoskeletal: no symptoms reported Skin: see HPI Psychiatric/Neurological: No Symptoms Reported Hematologic/Lymphatic: No Symptoms Reported Immunological/Allergic: no symptoms reported Past Ynbyqxf-Esypfp-Kyniqd Hx Patient Social History Alcohol Use: Denies Use Recreational Drug Use: No Drug of Choice: MARIJUANA Smoking Status: Former Smoker Type Used: Cigarettes Former Smoker, Quit: Apr 20, 1987 Recent Foreign Travel: No Contact w/Someone Who Travel: No Recent Infectious Disease Expo: No Recent Hopitalizations: No Immunizations Up To Date Tetanus Booster (TDap): Unknown Seasonal Allergies Seasonal Allergies: No Past Medical History Surgeries: Yes (CONDYLOMAS REMOVED FROM THE THROAT, J-tube) Orthopedic, Tonsillectomy Respiratory: No Currently Using CPAP: No Currently Using BIPAP: No Cardiac: Yes Hypertension Neurological: Yes (MEMORY DEFICITS) Concussion, Traumatic Brain Injury Reproductive Disorders: No Sexually Transmitted Disease: No Gastrointestinal: Yes (DYSPHAGIA) Musculoskeletal: Yes Back Injury, Chronic Back Pain Endocrine: Yes Diabetes, 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 0.0oz. 81.615970wd; 23.1 BMI Method:Stated General Appearance: WD/WN, Anxious, Moderate Distress, Other (Diaphoretic) HEENT: PERRL/EOMI, Normal ENT Inspection, Pharynx Normal Neck: Normal Inspection Respiratory: Lungs Clear, Normal Breath Sounds, No Accessory Muscle Use, No Respiratory Distress Cardiovascular: Regular Rate, Rhythm, No Edema, No Murmur Gastrointestinal: Non Tender, Soft, Abnormal Bowel Sounds (Decreased); No Distended; Other (G-tube in place in the left lower quadrant) Extremity: Normal Inspection, No Pedal Edema Neurologic/Psychiatric: Alert, Oriented x3, No Motor/Sensory Deficits, Normal 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, 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 Skin: Normal Color, Diaphoresis Progress/Results/Core Measures Suspected Sepsis Recent Fever Within 48 Hours: No Infection Criteria Present: None New/Unexplained Altered Menta: No Sepsis Screen: No Definite Risk SIRS Temperature:96.7 Pulse: 87 Respiratory Rate: 18 Laboratory Tests 12/19/17 15:45: White Blood Count 8.6 Blood Pressure 131 /80 Mean: 97 Laboratory Tests 12/19/17 15:45: Creatinine 0.84, INR Comment 1.0, Platelet Count 258, Total Bilirubin 0.4 Results/Orders Lab Results Laboratory Tests Test 12/19/17 15:45 12/19/17 15:48 12/19/17 16:01 12/19/17 17:51 Range/Units White Blood Count 8.6 4.3-11.0 10^3/uL Red Blood Count 4.37 4.35-5.85 10^6/uL Hemoglobin 14.9 13.3-17.7 G/DL Hematocrit 41 40-54 % Mean Corpuscular Volume 93 80-99 FL Mean Corpuscular Hemoglobin 34 25-34 PG Mean Corpuscular Hemoglobin Concent 37 H 32-36 G/DL Red Cell Distribution Width 14.7 H 10.0-14.5 % Platelet Count 258 130-400 10^3/uL Mean Platelet Volume 9.5 7.4-10.4 FL Neutrophils (%) (Auto) 63 42-75 % Lymphocytes (%) (Auto) 15 12-44 % Monocytes (%) (Auto) 15 H 0-12 % Eosinophils (%) (Auto) 6 0-10 % Basophils (%) (Auto) 1 0-10 % Neutrophils # (Auto) 5.4 1.8-7.8 X 10^3 Lymphocytes # (Auto) 1.3 1.0-4.0 X 10^3 Monocytes # (Auto) 1.3 H 0.0-1.0 X 10^3 Eosinophils # (Auto) 0.5 H 0.0-0.3 10^3/uL Basophils # (Auto) 0.1 0.0-0.1 10^3/uL Prothrombin Time 13.5 12.2-14.7 SEC INR Comment 1.0 0.8-1.4 Activated Partial Thromboplast Time 25 24-35 SEC Sodium Level 139 135-145 MMOL/L Potassium Level 3.8 3.6-5.0 MMOL/L Chloride Level 105 98-107 MMOL/L Carbon Dioxide Level 19 L 21-32 MMOL/L Anion Gap 15 H 5-14 MMOL/L Blood Urea Nitrogen 16 7-18 MG/DL Creatinine 0.84 0.60-1.30 MG/DL Estimat Glomerular Filtration Rate > 60 BUN/Creatinine Ratio 19 Glucose Level 146 H 70-105 MG/DL Calcium Level 9.7 8.5-10.1 MG/DL Corrected Calcium 9.6 8.5-10.1 MG/DL Magnesium Level 2.3 1.8-2.4 MG/DL Total Bilirubin 0.4 0.1-1.0 MG/DL Aspartate Amino Transf (AST/SGOT) 22 5-34 U/L Alanine Aminotransferase (ALT/SGPT) 30 0-55 U/L Alkaline Phosphatase 72 40-136 U/L Myoglobin 13.7 10.0-92.0 NG/ML Troponin I < 0.30 <0.30 NG/ML Total Protein 6.8 6.4-8.2 GM/DL Albumin 4.1 3.2-4.5 GM/DL Glucometer 145 H 70-110 MG/DL Gastric Fluid Occult Blood NEGATIVE NEGATIVE Urine Color YELLOW Urine Clarity CLEAR Urine pH 6.5 5-9 Urine Specific [place] 1.015 L 1.016-1.022 Urine Protein NEGATIVE NEGATIVE Urine Glucose (UA) 1+ H NEGATIVE Urine Ketones NEGATIVE NEGATIVE Urine Nitrite NEGATIVE NEGATIVE Urine Bilirubin NEGATIVE NEGATIVE Urine Urobilinogen NORMAL NORMAL MG/DL Urine Leukocyte Esterase NEGATIVE NEGATIVE Urine RBC (Auto) NEGATIVE NEGATIVE Urine RBC RARE /HPF Urine WBC 0-2 /HPF Urine Squamous Epithelial Cells NONE /HPF Urine Renal Epithelial Cells NONE /HPF Urine Crystals NONE /LPF Urine Bacteria NEGATIVE /HPF Urine Casts PRESENT /LPF Urine Hyaline Casts RARE /LPF Urine Mucus NEGATIVE /LPF Urine Culture Indicated NO Urine Opiates Screen NEGATIVE NEGATIVE Urine Oxycodone Screen NEGATIVE NEGATIVE Urine Methadone Screen NEGATIVE NEGATIVE Urine Propoxyphene Screen NEGATIVE NEGATIVE Urine Barbiturates Screen NEGATIVE NEGATIVE Ur Tricyclic Antidepressants Screen POSITIVE H NEGATIVE Urine Phencyclidine Screen NEGATIVE NEGATIVE Urine Amphetamines Screen NEGATIVE NEGATIVE Urine Methamphetamines Screen NEGATIVE NEGATIVE Urine Benzodiazepines Screen NEGATIVE NEGATIVE Urine Cocaine Screen NEGATIVE NEGATIVE Urine Cannabinoids Screen POSITIVE H NEGATIVE My Orders Orders - URIEL BURGOS MD Ondansetron Injection (Zofran Injectio (12/19/17 15:45) Cbc With Automated Diff (12/19/17 15:45) Magnesium (12/19/17 15:45) Chest 1 View, Ap/Pa Only (12/19/17 15:45) Ekg Tracing (12/19/17 15:45) Cardiac Profile 1 (12/19/17 15:45) Comprehensive Metabolic Panel (12/19/17 15:45) Myoglobin Serum (12/19/17 15:45) Protime With Inr (12/19/17 15:45) Partial Thromboplastin Time (12/19/17 15:45) O2 (12/19/17 15:45) Monitor-Rhythm Ecg Trace Only (12/19/17 15:45) Saline Lock/Iv-Start (12/19/17 15:45) Accucheck Stat ONCE (12/19/17 15:45) Saline Lock/Iv-Start (12/19/17 15:51) Ns Iv 1000 Ml (Sodium Chloride 0.9%) (12/19/17 15:51) Promethazine Injection (Phenergan Injec (12/19/17 16:00) Occult Blood,Gastric Fluid (12/19/17 16:10) Ct Head W Wo (12/19/17 16:20) Ct Chest/Abdomen/Pelvis W (12/19/17 16:20) Iohexol Injection (Omnipaque 350 Mg/Ml 1 (12/19/17 16:30) Sodium Chloride Flush (Catheter Flush Sy (12/19/17 16:30) Ns (Ivpb) (Sodium Chloride 0.9%) (12/19/17 16:30) Pharmacy Communication (Pharmacy Communi (12/19/17 16:22) Drug Screen Stat (Urine) (12/19/17 17:48) Ua Culture If Indicated (12/19/17 17:48) Medications Given in ED Vital Signs/I&O Capillary Refill : Less Than 3 Seconds Blood Pressure Mean: 97 Point of Care Testing Finger Stick Blood Glucose: 145 Progress Note : Progress Note Patient required multiple progressive doses of antiemetics. He received a total of 16 mg of Zofran and 50 mg of Phenergan. His vomiting did eventually stop and he was able to tolerate oral water. Patient was very clear that he had no chest pain at any time during this episode. He received a liter of IV fluid. This unusual presentation of vomiting raise question of possible intracranial pathology. CT of the head with and without contrast was performed. CT of the chest, abdomen and pelvis was also obtained to rule out obstruction or other cancer related etiology. CT scans revealed no new pathology to explain his symptoms. Patient was ultimately dismissed home and to the care of his family near his baseline condition. He felt well and was requesting dismissal. Patient did admit to some constipation and stated no bowel movement 2 days. MiraLAX was recommended. See discharge instructions. ECG Initial ECG Impression Date: Dec 19, 2017 Initial ECG Impression Time: 15:52 Initial ECG Rate: 93 Initial ECG Rhythm: S.Tach Comment Sinus tachycardia with no ST elevation or depression. Motion artifact. No abnormal intervals. No significant axis deviation. Diagnostic Imaging Diagonstic Imaging: CT Plain Films/CT/US/NM/MRI: head Comments CT head with and without contrast viewed by me and report reviewed. See report below: NAME: LEILA LYNN [facility] REC#: [id number] PT STATUS: REG ER : 1965 PHYSICIAN: URIEL BURGOS MD ADMIT DATE: 12/19/17/ER Draft Date of Exam:12/19/17 CT HEAD W WO PROCEDURE: CT head with and without contrast. TECHNIQUE: Multiple contiguous axial images were obtained through the brain before and after the administration of intravenous contrast. INDICATION: Esophageal cancer. Vomiting. COMPARISON: CT head without contrast 04/01/2017. FINDINGS: No intracranial hemorrhage, mass effect, hydrocephalus or extra-axial fluid collections. No CT evidence of acute infarction. Delayed postcontrast imaging demonstrates no abnormal intracranial enhancement. Osseous structures are intact. The visualized paranasal sinuses and mastoids are clear. IMPRESSION: No acute intracranial CT findings. Dictated on workstation # [id number] Dict: 12/19/17 1718 Trans: 12/19/17 1724 [facility] [id number] Interpreted by: MILLER CARRILLO MD Diagonstic Imaging: CT Plain Films/CT/US/NM/MRI: abdomen, pelvis Comments CT chest, abdomen and pelvis viewed by me and report reviewed. See report below : NAME: LEILA LYNN [facility] REC#: [id number] PT STATUS: REG ER : 1965 PHYSICIAN: URIEL BURGOS MD ADMIT DATE: 12/19/17/ER Draft Date of Exam:12/19/17 CT CHEST/ABDOMEN/PELVIS W PROCEDURE: CT chest, abdomen, and pelvis with contrast. TECHNIQUE: Multiple contiguous axial images were obtained through the chest, abdomen, and pelvis after the administration of intravenous contrast. INDICATION: Esophageal cancer. Vomiting. COMPARISON: Nuclear medicine FDG PET/CT 08/25/2017. FINDINGS: CT chest: Again seen is the circumferential wall thickening of the distal esophagus. This has modestly improved since the prior exam. There is moderate gaseous distention of the more proximal esophagus. The previously noted lymph node in the azygous recess continues to measure approximately 0.6 cm in short axis dimension. No other lymphadenopathy is identified. 2 mm pulmonary nodule in the right middle lobe laterally (series 3, image 34) is stable compared to the prior exam. No other pulmonary nodule or mass. No pneumothorax or pleural effusion. Right tunneled CVC tip mid SVC. No endobronchial lesions. Normal heart size. No pericardial effusion. No acute osseous findings. No suspicious osteoblastic or lytic lesions. CT abdomen and pelvis: The liver, gallbladder, pancreas, spleen, adrenals, kidneys, collecting systems and partially opacified bladder are negative. There is a catheter entering the midline upper abdomen, anteriorly, which terminates in a loop of small bowel. No free intraperitoneal air or fluid. No lymphadenopathy. No evidence of bowel obstruction. There is a large amount of stool throughout much of the colon. No acute osseous findings. No suspicious osteoblastic or lytic lesions. IMPRESSION: 1. Persistent circumferential wall thickening of the distal esophagus is modestly improved since the prior exam. There is moderate gaseous distention of the more proximal esophagus. 2. No acute CT findings in the chest. 3. Stable 2 mm pulmonary nodule in the right middle lobe, laterally. 4. No acute CT findings in the abdomen or pelvis. No evidence of bowel obstruction. 5. Large amount of stool throughout much of the colon may represent a degree of constipation. Dictated on workstation # [id number] Dict: 12/19/17 1721 Trans: 12/19/17 1734 [facility] [id number] Interpreted by: MILLER CARRILLO MD Diagonstic Imaging: Xray Plain Films/CT/US/NM/MRI: chest Comments Chest x-ray viewed by me and report reviewed. See report below: NAME: LEILA LYNN REC#: [id number] PT STATUS: REG ER : 1965 PHYSICIAN: URIEL BURGOS MD ADMIT DATE: 12/19/17/ER Draft Date of Exam:12/19/17 CHEST 1 VIEW, AP/PA ONLY EXAM: Chest 1 view, AP/PA only. INDICATION: Vomiting and weakness. Esophageal cancer. COMPARISON: CT chest, abdomen and pelvis 12/19/2017. FINDINGS: Normal heart size and central pulmonary vascularity. No focal pulmonary opacity, pleural effusion or pneumothorax. No acute osseous findings. Right subclavian tunneled port CVC tip mid SVC. IMPRESSION: No acute cardiopulmonary findings. Dictated on workstation # [id number] Dict: 12/19/17 1715 Trans: 12/19/17 1720 [facility] [id number] Interpreted by: MILLER CARRILLO MD Departure Impression Primary Impression: Nausea and vomiting Qualified Codes: R11.2 - Nausea with vomiting, unspecified Additional Impressions: Lightheadedness Esophageal cancer Qualified Codes: C15.9 - Malignant neoplasm of esophagus, unspecified Diaphoresis Constipation Qualified Codes: K59.00 - Constipation, unspecified Headache Qualified Codes: R51 - Headache Disposition: 01 HOME, SELF-CARE Condition: Improved Departure-Patient Inst. Decision time for Depature: 18:41 Referrals: VALDEZ HUMPHREYS MD (PCP/Family) Primary Care Physician Patient Instructions: CONTRAST ANTIDIABETIC MEDS Add. Discharge Instructions: Drink plenty of clear liquids. Stick to a clear liquid diet this evening and gradually advance her diet with small quantities of bland food as tolerated tomorrow. For constipation use MiraLAX (polyethylene glycol) as prescribed. Return to emergency room if you have worsening symptoms. Please follow-up with your primary care provider in your cancer team as soon as possible. All discharge instructions reviewed with patient and/or family. Voiced understanding. Scripts Polyethylene Glycol 3350 (Miralax) 119 Gm Powder 17 GM PO BID PRN for CONSTIPATION-1ST LINE, #1 EA Fill cap to line. Dissolve in 8-12 liquid. Prov: URIEL BURGOS MD 12/19/17 Copy Copies To 1: VALDEZ HUMPHREYS MD, JOSHUA T MD Dec 19, 2017 17:45
[2017-12-19 18:03] LABS: BILIRUBIN,URINE NEGATIVE (NEGATIVE); CLARITY,URINE CLEAR; COLOR,URINE YELLOW; GLUCOSE, URINE (UA) 1+ (NEGATIVE); KETONES,URINE NEGATIVE (NEGATIVE); LEUKOCYTE ESTERASE ,URINE NEGATIVE (NEGATIVE); NITRITE,URINE NEGATIVE (NEGATIVE); PH,URINE 6.5 (5-9); PROTEIN,URINE NEGATIVE (NEGATIVE); UROBILINOGEN,URINE NORMAL (NORMAL)
[2017-12-19 18:19] LABS: AMPHETAMINE SCREEN, URINE NEGATIVE (NEGATIVE); BARBITURATE SCREEN URINE NEGATIVE (NEGATIVE); BENZODIAZEPINES SCREEN URINE NEGATIVE (NEGATIVE); CANNABINOID SCREEN, URINE POSITIVE (NEGATIVE); COCAINE SCREEN URINE NEGATIVE (NEGATIVE); METHAMPHETAMINE SCREEN URINE S NEGATIVE (NEGATIVE); OPIATE SCREEN URINE NEGATIVE (NEGATIVE); TRICYCLIC ANTIDEPRESSANTS SCRE POSITIVE (NEGATIVE)
[2017-12-19 18:20] LABS: METHADONE STAT NEGATIVE (NEGATIVE); OXYCODONE STAT NEGATIVE (NEGATIVE); PROPOXYPHENE STAT NEGATIVE (NEGATIVE)
[2017-12-19 18:25] LABS: BACTERIA,URINE NEGATIVE /HPF; HYALINE CASTS, URINE RARE /LPF; RBC,URINE RARE /HPF; WBC,URINE 0-2 /HPF
[2017-12-19 18:27] VITALS: BP 117/73
[2017-12-19] MEDS ORDERED: POLY119P5 PO (18:42)
[2017-12-19 18:46] VITALS: BP 123/73
== END 2017-12-19 18:46 | disposition home or self-care (01) ==
LOC: EDUNIT# 15:40 → ER 15:43
DX: R11.2 Nausea with vomiting, unspecified (principal); R42 Dizziness and giddiness; C15.9 Malignant neoplasm of esophagus, unspecified; K59.00 Constipation, unspecified; R51 Headache; R61 Generalized hyperhidrosis; I10 Essential (primary) hypertension; E11.9 Type 2 diabetes mellitus without complications; F41.9 Anxiety disorder, unspecified; F12.10 Cannabis abuse, uncomplicated; Z90.89 Acquired absence of other organs; Z87.820 Personal history of traumatic brain injury; Z92.21 Personal history of antineoplastic chemotherapy; Z87.19 Personal history of other diseases of the digestive system; Z88.0 Allergy status to penicillin; Z79.84 Long term (current) use of oral hypoglycemic drugs; Z87.891 Personal history of nicotine dependence
CPT/HCPCS: 36415; 70470; 71045; 71260; 74177; 80053; 80306; 81000; 82271; 82962; 83735; 83874; 84484; 85025; 85610; 85730; 93005; 93041; 96361; 96374; 96375

== ENCOUNTER → 2018-01-21 | Outpatient (CLI) | payer SELFPAY ==
[~2018-01-21] MED LIST changes: +POLY119P5 PO
--- NOTE | 2018-01-21 17:42 | Diagnostic Imaging Report ---
EXAMINATION: PA and lateral chest. INDICATION: History of esophageal cancer. History of pneumothorax. Shortness of breath. COMPARISON: Comparison is made with a prior from December 19, 2017. FINDINGS: There are apparent operative changes related to previous gastric pull-through. There are new alveolar opacities demonstrated within the right lung base. There is also new blunting of the right costophrenic angle, probable effusion. There is subcutaneous emphysema along the inferior right chest wall but no evidence of pneumothorax at this time. The left lung appears clear. Heart size and mediastinal contours appear stable. IMPRESSION: 1. Apparent operative changes of gastric pull-through. 2. Alveolar opacities at the right base with right-sided effusion. There also is subcutaneous emphysema along the lateral and inferior right chest wall but no current right apical pneumothorax. Opacities within the right lung may reflect regions of atelectasis or infiltrate. Followup to resolution given cancer history is recommended. Dictated by: Dictated on workstation # [id number]
== END ==
LOC: RAD 17:16
PROVIDERS: ATTEND Family Medicine
DX: J43.9 Emphysema, unspecified (principal); J90 Pleural effusion, not elsewhere classified; Z85.01 Personal history of malignant neoplasm of esophagus; Z87.09 Personal history of other diseases of the respiratory system; Z98.890 Other specified postprocedural states
CPT/HCPCS: 71046

== ENCOUNTER 2018-03-08 15:32 | Outpatient (RCR) | payer MEDICAID, OTHER ==
[2018-02-19 13:50] LABS: BASOPHILS # (AUTO) 0.1 10^3/uL (0.0-0.1); BASOPHILS % (AUTO) 1 % (0-10); EOSINOPHILS # (AUTO) 0.3 10^3/uL (0.0-0.3); EOSINOPHILS % (AUTO) 6 % (0-10); HEMATOCRIT 41 % (40-54); LYMPHOCYTES # (AUTO) 0.7 X 10^3 (1.0-4.0); LYMPHOCYTES % (AUTO) 13 % (12-44); MEAN CORPUSCULAR HEMOGLOBIN 29 PG (25-34); MEAN CORPUSCULAR HGB CONC 32 G/DL (32-36); MEAN CORPUSCULAR VOLUME 93 FL (80-99); MEAN PLATELET VOLUME 9.2 FL (7.4-10.4); MONOCYTES # (AUTO) 0.7 X 10^3 (0.0-1.0); MONOCYTES % (AUTO) 13 % (0-12); NEUTROPHILS # (AUTO) 3.5 X 10^3 (1.8-7.8); NEUTROPHILS % (AUTO) 66 % (42-75); PLATELET COUNT 311 10^3/uL (130-400); RED BLOOD COUNT 4.43 10^6/uL (4.35-5.85); RED CELL DISTRIBUTION WIDTH 16.5 % (10.0-14.5); WHITE BLOOD COUNT 5.3 10^3/uL (4.3-11.0)
[2018-02-19 14:10] LABS: ALANINE AMINOTRANSFERASE 10 U/L (0-55); ALBUMIN 3.7 GM/DL (3.2-4.5); ALKALINE PHOSPHATASE 80 U/L (40-136); BILIRUBIN,TOTAL 0.3 MG/DL (0.1-1.0); BUN/CREATININE RATIO 23; CALCIUM 9.6 MG/DL (8.5-10.1); CARBON DIOXIDE 23 MMOL/L (21-32); CHLORIDE 101 MMOL/L (98-107); CREATININE SERUM 0.84 MG/DL (0.60-1.30); GFR ESTIMATED > 60; GLUCOSE 175 MG/DL (70-105); POTASSIUM 4.5 MMOL/L (3.6-5.0); SODIUM 135 MMOL/L (135-145); TOTAL PROTEIN 7.5 GM/DL (6.4-8.2)
== END 2018-04-21 | disposition home or self-care (01) ==
LOC: ONC 15:32
PROVIDERS: ATTEND Internal Medicine Hematology & Oncology
DX: C15.5 Malignant neoplasm of lower third of esophagus (principal); Z45.2 Encounter for adjustment and management of vascular access device
CPT/HCPCS: 36415; 80053; 85025; 96523; 99213

== ENCOUNTER 2018-07-05 13:41 | Outpatient (RCR) | payer MEDICAID ==
[2018-05-21 12:58] LABS: BASOPHILS % (AUTO) 1 % (0-10); EOSINOPHILS # (AUTO) 0.2 10^3/uL (0.0-0.3); EOSINOPHILS % (AUTO) 4 % (0-10); HEMATOCRIT 46 % (40-54); HEMOGLOBIN 15.6 G/DL (13.3-17.7); LYMPHOCYTES # (AUTO) 0.6 X 10^3 (1.0-4.0); LYMPHOCYTES % (AUTO) 14 % (12-44); MEAN CORPUSCULAR HEMOGLOBIN 31 PG (25-34); MEAN CORPUSCULAR HGB CONC 34 G/DL (32-36); MEAN CORPUSCULAR VOLUME 91 FL (80-99); MEAN PLATELET VOLUME 9.8 FL (7.4-10.4); MONOCYTES # (AUTO) 0.4 X 10^3 (0.0-1.0); MONOCYTES % (AUTO) 9 % (0-12); NEUTROPHILS # (AUTO) 3.2 X 10^3 (1.8-7.8); NEUTROPHILS % (AUTO) 72 % (42-75); PLATELET COUNT 197 10^3/uL (130-400); RED CELL DISTRIBUTION WIDTH 14.8 % (10.0-14.5); WHITE BLOOD COUNT 4.4 10^3/uL (4.3-11.0)
== END 2018-08-10 | disposition home or self-care (01) ==
LOC: ONC 13:41
PROVIDERS: ATTEND Internal Medicine Hematology & Oncology
DX: C15.5 Malignant neoplasm of lower third of esophagus (principal); Z45.2 Encounter for adjustment and management of vascular access device
CPT/HCPCS: 80053; 85025; 96523; 99213

== ENCOUNTER 2018-11-05 12:50 | Outpatient (RCR) | payer MEDICAID ==
[2018-08-13 12:43] LABS: BASOPHILS % (AUTO) 0 % (0-10); EOSINOPHILS # (AUTO) 0.2 10^3/uL (0.0-0.3); EOSINOPHILS % (AUTO) 5 % (0-10); HEMATOCRIT 43 % (40-54); HEMOGLOBIN 15.1 G/DL (13.3-17.7); LYMPHOCYTES # (AUTO) 0.6 X 10^3 (1.0-4.0); LYMPHOCYTES % (AUTO) 13 % (12-44); MEAN CORPUSCULAR HEMOGLOBIN 33 PG (25-34); MEAN CORPUSCULAR HGB CONC 35 G/DL (32-36); MEAN CORPUSCULAR VOLUME 96 FL (80-99); MEAN PLATELET VOLUME 9.8 FL (7.4-10.4); MONOCYTES # (AUTO) 0.4 X 10^3 (0.0-1.0); MONOCYTES % (AUTO) 10 % (0-12); NEUTROPHILS # (AUTO) 3.3 X 10^3 (1.8-7.8); NEUTROPHILS % (AUTO) 72 % (42-75); PLATELET COUNT 195 10^3/uL (130-400); RED CELL DISTRIBUTION WIDTH 12.5 % (10.0-14.5); WHITE BLOOD COUNT 4.6 10^3/uL (4.3-11.0)
[2018-08-13 13:00] LABS: ALANINE AMINOTRANSFERASE 15 U/L (0-55); ALBUMIN 4.2 GM/DL (3.2-4.5); ALKALINE PHOSPHATASE 73 U/L (40-136); BILIRUBIN,TOTAL 0.4 MG/DL (0.1-1.0); BUN/CREATININE RATIO 18; CALCIUM 9.3 MG/DL (8.5-10.1); CARBON DIOXIDE 24 MMOL/L (21-32); CHLORIDE 106 MMOL/L (98-107); CREATININE SERUM 0.76 MG/DL (0.60-1.30); GFR ESTIMATED > 60; GLUCOSE 117 MG/DL (70-105); POTASSIUM 4.4 MMOL/L (3.6-5.0); SODIUM 139 MMOL/L (135-145); TOTAL PROTEIN 6.8 GM/DL (6.4-8.2)
[2018-11-05 13:20] LABS: BASOPHILS % (AUTO) 1 % (0-10); EOSINOPHILS # (AUTO) 0.2 10^3/uL (0.0-0.3); EOSINOPHILS % (AUTO) 4 % (0-10); HEMATOCRIT 45 % (40-54); HEMOGLOBIN 15.6 G/DL (13.3-17.7); LYMPHOCYTES # (AUTO) 0.8 X 10^3 (1.0-4.0); LYMPHOCYTES % (AUTO) 18 % (12-44); MEAN CORPUSCULAR HEMOGLOBIN 33 PG (25-34); MEAN CORPUSCULAR HGB CONC 35 G/DL (32-36); MEAN CORPUSCULAR VOLUME 95 FL (80-99); MEAN PLATELET VOLUME 10.3 FL (7.4-10.4); MONOCYTES # (AUTO) 0.3 X 10^3 (0.0-1.0); MONOCYTES % (AUTO) 8 % (0-12); NEUTROPHILS # (AUTO) 2.9 X 10^3 (1.8-7.8); NEUTROPHILS % (AUTO) 69 % (42-75); PLATELET COUNT 190 10^3/uL (130-400); RED CELL DISTRIBUTION WIDTH 12.5 % (10.0-14.5); WHITE BLOOD COUNT 4.2 10^3/uL (4.3-11.0)
[2018-11-05 13:42] LABS: ALANINE AMINOTRANSFERASE 14 U/L (0-55); ALBUMIN 4.3 GM/DL (3.2-4.5); ALKALINE PHOSPHATASE 69 U/L (40-136); BILIRUBIN,TOTAL 0.5 MG/DL (0.1-1.0); BUN/CREATININE RATIO 18; CALCIUM 9.4 MG/DL (8.5-10.1); CARBON DIOXIDE 25 MMOL/L (21-32); CHLORIDE 108 MMOL/L (98-107); GFR ESTIMATED > 60; GLUCOSE 110 MG/DL (70-105); POTASSIUM 3.9 MMOL/L (3.6-5.0); SODIUM 140 MMOL/L (135-145)
== END 2018-11-11 | disposition home or self-care (01) ==
LOC: ONC 12:50
PROVIDERS: ATTEND Internal Medicine Hematology & Oncology
DX: C15.5 Malignant neoplasm of lower third of esophagus (principal); E11.9 Type 2 diabetes mellitus without complications; I10 Essential (primary) hypertension; R13.12 Dysphagia, oropharyngeal phase; Z87.891 Personal history of nicotine dependence; Z79.84 Long term (current) use of oral hypoglycemic drugs; Z79.899 Other long term (current) drug therapy
CPT/HCPCS: 36591; 80053; 85025; 96523

== ENCOUNTER → 2019-02-09 | Outpatient (CLI) | payer MEDICAID ==
[~2019-02-09] MED LIST changes: +BARIUM SUSPENSION 2.1% (VANILLA SILQ) 450 ML PO ONE; +CATHETER FLUSH 10 ML SYR IV PRN; +HOLD METFORMIN - RECEIVED CONTRAST 20 ML VIAL IV SCH; +IOHEXOL 350 MG/ML 100 ML (OMNIPAQUE 350) VIAL IV ONE; +NS 100 ML (IVPB) BAG IV ONE
--- NOTE | 2019-02-09 11:50 | Diagnostic Imaging Report ---
PROCEDURE: CT chest, abdomen, and pelvis with contrast. TECHNIQUE: Multiple contiguous axial images were obtained through the chest, abdomen, and pelvis after the administration of intravenous contrast. Auto Exposure Controls were utilized during the CT exam to meet ALARA standards for radiation dose reduction. INDICATION: Esophageal carcinoma. The study is performed for follow-up. Correlation is made with prior CT from 12/19/2017. CT CHEST: A right chest wall port has the tip within the superior vena cava. The patient appears to have undergone surgery to the esophagus since prior CT. Other findings suggestive of a gastric pull-through with moderate amount of stomach located in the left lower chest. No axillary lymphadenopathy is seen. A right paratracheal lymph node is slightly prominent at 12 mm compared with 6 mm on prior exam. No other enlarged mediastinal nodes are seen. The derick are unremarkable. There is no pericardial or pleural fluid detected. There is some linear opacities in the right lower lobe and right middle lobe suggestive of some scarring or atelectasis. Previously noted tiny subpleural nodule right middle lobe is not seen on today's exam. Left lung is clear. IMPRESSION: Postop changes to the esophagus, as described. Right paratracheal lymph node does appear to be slightly larger when compared with the prior exam. There are areas of scarring or atelectasis in the right lower lobe. No other significant abnormality is seen. CT abdomen and pelvis: No discrete liver mass is identified. The gallbladder is unremarkable. No biliary duct dilatation is seen. The pancreas and spleen are unremarkable. No adrenal mass is detected. The kidneys are unremarkable. Aorta is non-aneurysmal. No central retroperitoneal or mesenteric lymphadenopathy is seen. There is moderate stool throughout the colon. Small bowel loops are of normal caliber. No obstruction is seen. No free fluid or loculated fluid collection is identified. No pelvic lymphadenopathy is detected. Bladder is unremarkable. Prostate is unremarkable. Bony structures are nonacute. IMPRESSION: Postsurgical changes. No definite abdominal or pelvic lymphadenopathy or evidence of metastatic disease is detected. There is moderate stool throughout the colon suggestive of constipation. Dictated by: Dictated on workstation # [id number]
== END ==
LOC: RAD 10:39
PROVIDERS: ATTEND Internal Medicine Hematology & Oncology
DX: C15.5 Malignant neoplasm of lower third of esophagus (principal); Z95.828 Presence of other vascular implants and grafts
CPT/HCPCS: 71260; 74177

== ENCOUNTER 2019-02-17 14:28 | Outpatient (RCR) | payer MEDICAID ==
[2019-02-09 10:33] LABS: BASOPHILS % (AUTO) 1 % (0-10); EOSINOPHILS # (AUTO) 0.2 10^3/uL (0.0-0.3); EOSINOPHILS % (AUTO) 5 % (0-10); HEMATOCRIT 43 % (40-54); HEMOGLOBIN 14.5 G/DL (13.3-17.7); LYMPHOCYTES # (AUTO) 0.5 X 10^3 (1.0-4.0); LYMPHOCYTES % (AUTO) 14 % (12-44); MEAN CORPUSCULAR HEMOGLOBIN 32 PG (25-34); MEAN CORPUSCULAR HGB CONC 34 G/DL (32-36); MEAN CORPUSCULAR VOLUME 95 FL (80-99); MEAN PLATELET VOLUME 9.8 FL (7.4-10.4); MONOCYTES # (AUTO) 0.4 X 10^3 (0.0-1.0); MONOCYTES % (AUTO) 9 % (0-12); NEUTROPHILS # (AUTO) 2.7 X 10^3 (1.8-7.8); NEUTROPHILS % (AUTO) 72 % (42-75); PLATELET COUNT 185 10^3/uL (130-400); RED CELL DISTRIBUTION WIDTH 12.3 % (10.0-14.5); WHITE BLOOD COUNT 3.8 10^3/uL (4.3-11.0)
[2019-02-09 10:55] LABS: ALANINE AMINOTRANSFERASE 20 U/L (0-55); ALKALINE PHOSPHATASE 79 U/L (40-136); BILIRUBIN,TOTAL 0.4 MG/DL (0.1-1.0); BUN/CREATININE RATIO 15; CALCIUM 8.4 MG/DL (8.5-10.1); CARBON DIOXIDE 26 MMOL/L (21-32); CHLORIDE 106 MMOL/L (98-107); CREATININE SERUM 0.72 MG/DL (0.60-1.30); GFR ESTIMATED > 60; GLUCOSE 108 MG/DL (70-105); SODIUM 140 MMOL/L (135-145); TOTAL PROTEIN 6.4 GM/DL (6.4-8.2)
[~2019-02-17 14:28] MED LIST changes: -BARIUM SUSPENSION 2.1% (VANILLA SILQ) 450 ML PO ONE; -CATHETER FLUSH 10 ML SYR IV PRN; -HOLD METFORMIN - RECEIVED CONTRAST 20 ML VIAL IV SCH; -IOHEXOL 350 MG/ML 100 ML (OMNIPAQUE 350) VIAL IV ONE; -NS 100 ML (IVPB) BAG IV ONE
[2019-02-17] MEDS ORDERED: FLU QUADRIvalent (5+ YOA) 2019-2020 (Cancer Ctr) 0.5 ML IM ONE (15:15)
[2019-03-10] MEDS ORDERED: ASPI-586 PO (14:23)
== END 2019-04-05 | disposition home or self-care (01) ==
LOC: ONC 14:28
PROVIDERS: ATTEND Internal Medicine Hematology & Oncology
DX: C15.5 Malignant neoplasm of lower third of esophagus (principal); E11.9 Type 2 diabetes mellitus without complications; I10 Essential (primary) hypertension; R13.12 Dysphagia, oropharyngeal phase; Z87.891 Personal history of nicotine dependence; Z79.84 Long term (current) use of oral hypoglycemic drugs; Z79.899 Other long term (current) drug therapy
CPT/HCPCS: 36415; 36591; 80053; 85025; 90471; 96523

== ENCOUNTER 2019-03-10 05:38 | Outpatient (CLI) | payer MEDICAID ==
[~2019-03-10] VITALS: Ht 188 cm; Wt 84.1 kg
[2019-03-10] MEDS ORDERED: ASPI-586 PO (14:23)
== END 2019-03-10 14:31 | disposition home or self-care (01) ==
LOC: PREOP 05:38
PROVIDERS: ATTEND Surgery
DX: Z01.818 Encounter for other preprocedural examination (principal)

== ENCOUNTER 2019-03-16 06:48 | Day surgery (SDC) | payer MEDICAID ==
[2019-03-16] VITALS (8 sets, daily range): BP systolic 110–131; BP diastolic 68–91
[~2019-03-16] VITALS: Ht 188 cm; Wt 84.1 kg
[~2019-03-16 06:48] MED LIST changes: +ASPI-586 PO
[2019-03-16] MEDS ORDERED: LACTATED RINGERS 1,000 ML IV PRN (06:53)
[2019-03-16] MEDS ORDERED: CLINDAMYCIN 600 MG/50 ML IVPB 50 ML IV ONE (07:00)
[2019-03-16] MEDS ORDERED: BUP/EPI 0.5% 1:200,000 (MARCAINE) 10ML VIAL IJ ONE (07:07)
[2019-03-16] MEDS ORDERED: CATHETER FLUSH 10 ML SYR IV PRN (07:15)
[2019-03-16] MEDS ORDERED: PROPOFOL INJECTION 50 ML IV ONE (07:23)
[2019-03-16] MEDS ORDERED: MIDAZOLAM 2 MG/2 ML (VERSED) VIAL ONE (07:23)
--- NOTE | 2019-03-16 08:10 | Progress Note-Pre Operative ---
Pre-Operative Progress Note H&P Reviewed The H&P was reviewed, patient examined and no changes noted. Time Seen by Provider: 08:02 Date H&P Reviewed: Mar 16, 2019 Time H&P Reviewed: 08:03 Pre-Operative Diagnosis: Venous insufficiency, hx of esophageal CA KAREN NG DO Mar 16, 2019 08:10 POS
[2019-03-16] MEDS ORDERED: KETAMINE/NaCl 50 MG/5 ML SYRINGE (ED ONLY) ONE (08:30)
--- NOTE | 2019-03-16 08:37 | Progress Note-Post Operative ---
Post-Operative Progess Note Surgeon (s)/Metal Fitter (s) Surgeon KAREN NG DO Metal Fitter: none Pre-Operative Diagnosis Venous insufficiency, hx of esophageal CA Post-Operative Diagnosis same Procedure & Operative Findings Date of Procedure 03/16/19 Procedure Performed/Findings Hugo-cath removal Anesthesia Type IV sedation by SIGNAL TESTER Estimated Blood Loss Estimated blood loss (mL): scant Specimens/Packing Specimens Removed port removed, not sent to pathology KAREN NG DO Mar 16, 2019 08:37 POS
--- NOTE | 2019-03-16 08:39 | Discharge Inst-Surgical ---
Discharge Inst-Surgical Depart Medication/Instructions New, Converted or Re-Newed RX: Other (Take Ibuprofen and Tylenol for pain control) Patient Instructions Follow up Appt: Make appointment for 1 week. [phone] Instructions: May shower in 24 hours, no tub bath or soaking. Use incentive spirometer at home as directed. No Smoking Skin/Wound Care: May remove bandages in am. You need to leave the Dermabond on incision it will fall off on it's own. Symptoms to Report: Appetite Changes, Extremity Discoloration, Numbness/Tingling, Swelling Increased, Bleeding Excessive, Eyesight Changes, Pain Increased, Urine Color Change, Constipation(Persistent), Fever over 101 degree F, Pain/Pressure in chest, Urinating Difficulty, Cough Up/Vomit Blood, Heart Beat Irreg/Pounding, Pain/Pressure in jaw, Cramps in feet or legs, Lightheadedness, Pain/Pressure in shoulder, Diarrhea(Persistent), Memory Changes Suddenly, Questions/Concerns, Weight gain consecutive days, Dizziness/Fainting, Nausea/Vomiting, Shortness of Breath, Weight gain over 2 pounds If questions or concerns contact your physician Or seek help at emergency department. Activity Driving Instructions: No Driving/Refer to Dr. Luke Discharge Diet: No Restrictions Diet After 24 Hours: Clear Liquid if Nauseous If Any Problems/Questions/Issu: Contact Your Physician, Go to Emergency Room Skin/Wound Care Infection Signs and Symptoms: Increased Redness, Foul Odor of Wound, Increased Drainage, Skin Itchy or Has a Rash, Increased Swelling, Temperature Above 101 F Bathing Instructions: Shower Ice Pack: Ice On and Off Site (as needed for pain) KAREN NG DO Mar 16, 2019 08:39 POS
--- NOTE | 2019-03-16 09:49 | Anesthesia-General Post-Op ---
MAC Patient Condition Mental Status/LOC: Same as Preop Cardiovascular: Satisfactory Nausea/Vomiting: Absent Respiratory: Satisfactory Pain: Controlled Complications: Absent Post Op Complications Complications None Follow Up Care/Instructions Patient Instructions None needed. Anesthesiology Discharge Order Discharge Order Patient is doing well, no complaints, stable vital signs, no apparent adverse anesthesia problems. No complications reported per nursing. SHAY VALENZUELA CRNA Mar 16, 2019 09:49 POS
--- NOTE | 2019-03-16 14:09 | OPERATIVE REPORT ---
DATE OF SERVICE: PREOPERATIVE DIAGNOSES: Venous insufficiency and history of esophageal cancer. POSTOPERATIVE DIAGNOSES: Venous insufficiency and history of esophageal cancer. PROCEDURE: Port-A-Cath removal. SURGEON: Yony Delong DO. CONTROL SYSTEMS SPECIALIST: None. ANESTHESIA: IV sedation by FENCE RIDER. SPECIMENS: removal. BLOOD LOSS: Scant. FLUIDS: Per anesthesia. POSTOPERATIVE CONDITION: Stable. INDICATION FOR PROCEDURE: The patient is a 53-year-old male with history of esophageal cancer and venous insufficiency. He had a Port-A-Cath placed for chemotherapy, no longer needs it and wanted it removed. FINDINGS: The patient had a Port-A-Cath removed from the right anterior chest wall. PROCEDURE NOTE: After informed consent was obtained, the patient was brought to the operating room, placed on the table in supine position, sterilely prepped and draped in normal fashion. Local lidocaine was used to infiltrate the skin right into the previous incision as well as around the port and a regional block, then made an incision with #15 blade, carried down through the skin into subcutaneous tissue, deepened down to subcutaneous tissue with Bovie electrocautery down to the catheter able to grasp the catheter and pulled the catheter out, removed it completely and then excised the port removing it completely cutting the stay suture and taking out the capsule, irrigated with normal saline. Hemostasis was obtained using Bovie electrocautery and then closed the subcutaneous tissue with a 4-0 undyed Monocryl #1 subcutaneous stitch and then closed the skin with 4-0 undyed Monocryl 3 interrupted subcuticular stitches. Area was cleaned and dried. was placed and then a pressure dressing. The patient tolerated the procedure. Sponge, instrument and needle count correct at the end of the case. Job ID: [id number] DocumentID: [id number] Dictated Date: 03/16/2019 08:35:03 Guidance Adviser Date: 03/16/2019 14:09:21 Dictated By: YONY DELONG DO
== END 2019-03-16 09:55 | disposition home or self-care (01) ==
LOC: SDC 06:48
PROVIDERS: ATTEND Surgery
DX: I87.2 Venous insufficiency (chronic) (peripheral) (principal); Z85.01 Personal history of malignant neoplasm of esophagus; E11.9 Type 2 diabetes mellitus without complications; I10 Essential (primary) hypertension; M53.3 Sacrococcygeal disorders, not elsewhere classified; R13.12 Dysphagia, oropharyngeal phase; Z92.21 Personal history of antineoplastic chemotherapy; Z87.891 Personal history of nicotine dependence; I48.91 Unspecified atrial fibrillation; F41.9 Anxiety disorder, unspecified; Z79.82 Long term (current) use of aspirin; Z79.899 Other long term (current) drug therapy; Z87.820 Personal history of traumatic brain injury; Z88.0 Allergy status to penicillin
CPT/HCPCS: 87081

== ENCOUNTER 2019-05-19 14:25 | Outpatient (RCR) | payer MEDICAID ==
[~2019-05-19 14:25] MED LIST changes: +ACHYD1T PO; -HYDR-3820 PO
[2019-05-19 14:38] LABS: BASOPHILS % (AUTO) 1 % (0-10); EOSINOPHILS # (AUTO) 0.2 10^3/uL (0.0-0.3); EOSINOPHILS % (AUTO) 5 % (0-10); HEMATOCRIT 48 % (40-54); HEMOGLOBIN 16.5 G/DL (13.3-17.7); LYMPHOCYTES # (AUTO) 0.8 X 10^3 (1.0-4.0); LYMPHOCYTES % (AUTO) 18 % (12-44); MEAN CORPUSCULAR HEMOGLOBIN 33 PG (25-34); MEAN CORPUSCULAR HGB CONC 35 G/DL (32-36); MEAN CORPUSCULAR VOLUME 95 FL (80-99); MEAN PLATELET VOLUME 9.5 FL (7.4-10.4); MONOCYTES # (AUTO) 0.4 X 10^3 (0.0-1.0); MONOCYTES % (AUTO) 9 % (0-12); NEUTROPHILS # (AUTO) 2.9 X 10^3 (1.8-7.8); NEUTROPHILS % (AUTO) 68 % (42-75); PLATELET COUNT 201 10^3/uL (130-400); RED CELL DISTRIBUTION WIDTH 12.3 % (10.0-14.5); WHITE BLOOD COUNT 4.3 10^3/uL (4.3-11.0)
[2019-05-19 14:59] LABS: ALANINE AMINOTRANSFERASE 15 U/L (0-55); ALBUMIN 4.4 GM/DL (3.2-4.5); ALKALINE PHOSPHATASE 76 U/L (40-136); BILIRUBIN,TOTAL 0.4 MG/DL (0.1-1.0); BUN/CREATININE RATIO 17; CALCIUM 9.3 MG/DL (8.5-10.1); CARBON DIOXIDE 24 MMOL/L (21-32); CHLORIDE 103 MMOL/L (98-107); CREATININE SERUM 0.84 MG/DL (0.60-1.30); GFR ESTIMATED > 60; GLUCOSE 111 MG/DL (70-105); POTASSIUM 4.8 MMOL/L (3.6-5.0); SODIUM 139 MMOL/L (135-145); TOTAL PROTEIN 7.4 GM/DL (6.4-8.2)
== END 2019-08-17 | disposition home or self-care (01) ==
LOC: ONC 14:25
PROVIDERS: ATTEND Internal Medicine Hematology & Oncology
DX: C15.5 Malignant neoplasm of lower third of esophagus (principal); E11.9 Type 2 diabetes mellitus without complications; I10 Essential (primary) hypertension; R13.12 Dysphagia, oropharyngeal phase; Z87.891 Personal history of nicotine dependence; Z79.84 Long term (current) use of oral hypoglycemic drugs; Z79.899 Other long term (current) drug therapy
CPT/HCPCS: 80053; 85025; 99213

== ENCOUNTER 2019-09-06 10:40 | Outpatient (RCR) | payer MEDICAID ==
[2019-09-06 10:54] LABS: BASOPHILS # (AUTO) 0.1 10^3/uL (0.0-0.1); BASOPHILS % (AUTO) 1 % (0-10); EOSINOPHILS # (AUTO) 0.2 10^3/uL (0.0-0.3); EOSINOPHILS % (AUTO) 4 % (0-10); HEMATOCRIT 47 % (40-54); HEMOGLOBIN 16.3 G/DL (13.3-17.7); LYMPHOCYTES # (AUTO) 0.7 X 10^3 (1.0-4.0); LYMPHOCYTES % (AUTO) 16 % (12-44); MEAN CORPUSCULAR HEMOGLOBIN 32 PG (25-34); MEAN CORPUSCULAR HGB CONC 35 G/DL (32-36); MEAN CORPUSCULAR VOLUME 93 FL (80-99); MEAN PLATELET VOLUME 10.2 FL (7.4-10.4); MONOCYTES # (AUTO) 0.5 X 10^3 (0.0-1.0); MONOCYTES % (AUTO) 11 % (0-12); NEUTROPHILS # (AUTO) 3.1 X 10^3 (1.8-7.8); NEUTROPHILS % (AUTO) 68 % (42-75); PLATELET COUNT 186 10^3/uL (130-400); RED CELL DISTRIBUTION WIDTH 12.7 % (10.0-14.5); WHITE BLOOD COUNT 4.5 10^3/uL (4.3-11.0)
[2019-09-06 11:13] LABS: ALANINE AMINOTRANSFERASE 14 U/L (0-55); ALBUMIN 4.3 GM/DL (3.2-4.5); ALKALINE PHOSPHATASE 70 U/L (40-136); BILIRUBIN,TOTAL 0.5 MG/DL (0.1-1.0); BUN/CREATININE RATIO 15; CALCIUM 8.8 MG/DL (8.5-10.1); CARBON DIOXIDE 25 MMOL/L (21-32); CHLORIDE 106 MMOL/L (98-107); CREATININE SERUM 0.84 MG/DL (0.60-1.30); GFR ESTIMATED > 60; GLUCOSE 162 MG/DL (70-105); POTASSIUM 3.8 MMOL/L (3.6-5.0); SODIUM 139 MMOL/L (135-145); TOTAL PROTEIN 7.1 GM/DL (6.4-8.2)
== END 2019-11-30 14:54 | disposition home or self-care (01) ==
LOC: ONC 10:40
PROVIDERS: ATTEND Internal Medicine Hematology & Oncology
DX: C15.5 Malignant neoplasm of lower third of esophagus (principal); E11.9 Type 2 diabetes mellitus without complications; I10 Essential (primary) hypertension; R13.12 Dysphagia, oropharyngeal phase; Z87.891 Personal history of nicotine dependence; Z79.84 Long term (current) use of oral hypoglycemic drugs; Z79.899 Other long term (current) drug therapy; Z98.890 Other specified postprocedural states; Z90.89 Acquired absence of other organs; Z95.828 Presence of other vascular implants and grafts
CPT/HCPCS: 80053; 85025; 99213

== ENCOUNTER → 2019-12-01 | Outpatient (CLI) | payer MEDICAID ==
[2019-12-01 10:59] LABS: BASOPHILS # (AUTO) 0.1 10^3/uL (0.0-0.1); BASOPHILS % (AUTO) 1 % (0-10); EOSINOPHILS # (AUTO) 0.2 10^3/uL (0.0-0.3); EOSINOPHILS % (AUTO) 4 % (0-10); HEMATOCRIT 49 % (40-54); HEMOGLOBIN 16.6 G/DL (13.3-17.7); LYMPHOCYTES # (AUTO) 0.7 X 10^3 (1.0-4.0); LYMPHOCYTES % (AUTO) 13 % (12-44); MEAN CORPUSCULAR HEMOGLOBIN 33 PG (25-34); MEAN CORPUSCULAR HGB CONC 34 G/DL (32-36); MEAN CORPUSCULAR VOLUME 95 FL (80-99); MEAN PLATELET VOLUME 10.3 FL (7.4-10.4); MONOCYTES # (AUTO) 0.6 X 10^3 (0.0-1.0); MONOCYTES % (AUTO) 11 % (0-12); NEUTROPHILS # (AUTO) 3.8 X 10^3 (1.8-7.8); NEUTROPHILS % (AUTO) 71 % (42-75); PLATELET COUNT 195 10^3/uL (130-400); RED CELL DISTRIBUTION WIDTH 12.9 % (10.0-14.5); WHITE BLOOD COUNT 5.4 10^3/uL (4.3-11.0)
[2019-12-01 11:19] LABS: ALANINE AMINOTRANSFERASE 12 U/L (0-55); ALBUMIN 4.3 GM/DL (3.2-4.5); ALKALINE PHOSPHATASE 68 U/L (40-136); BILIRUBIN,TOTAL 0.6 MG/DL (0.1-1.0); BUN/CREATININE RATIO 18; CALCIUM 8.8 MG/DL (8.5-10.1); CARBON DIOXIDE 22 MMOL/L (21-32); CHLORIDE 106 MMOL/L (98-107); CREATININE SERUM 0.84 MG/DL (0.60-1.30); GFR ESTIMATED > 60; GLUCOSE 97 MG/DL (70-105); POTASSIUM 4.2 MMOL/L (3.6-5.0); SODIUM 138 MMOL/L (135-145); TOTAL PROTEIN 7.5 GM/DL (6.4-8.2)
== END ==
LOC: EDSTATUS 10:50 → ONC 10:51
PROVIDERS: ATTEND Internal Medicine Hematology & Oncology
DX: C15.9 Malignant neoplasm of esophagus, unspecified (principal); E11.9 Type 2 diabetes mellitus without complications; I10 Essential (primary) hypertension; R13.12 Dysphagia, oropharyngeal phase; Z87.891 Personal history of nicotine dependence; Z79.84 Long term (current) use of oral hypoglycemic drugs; Z79.899 Other long term (current) drug therapy; Z98.890 Other specified postprocedural states; Z90.89 Acquired absence of other organs; Z95.828 Presence of other vascular implants and grafts
CPT/HCPCS: 80053; 85025; 99213

== ENCOUNTER → 2020-03-01 | Outpatient (CLI) | payer MEDICAID ==
[~2020-03-01] MED LIST changes: +FLU QUADRIvalent (3YOA+) 2020-21 0.5 ML (CANCER CTR) IM ONE
[2020-03-01 10:58] LABS: BASOPHILS # (AUTO) 0.1 10^3/uL (0.0-0.1); BASOPHILS % (AUTO) 1 % (0-10); EOSINOPHILS # (AUTO) 0.2 10^3/uL (0.0-0.3); EOSINOPHILS % (AUTO) 4 % (0-10); HEMATOCRIT 47 % (40-54); HEMOGLOBIN 16.3 g/dL (13.3-17.7); LYMPHOCYTES # (AUTO) 0.9 10^3/uL (1.0-4.0); LYMPHOCYTES % (AUTO) 17 % (12-44); MEAN CORPUSCULAR HEMOGLOBIN 33 pg (25-34); MEAN CORPUSCULAR HGB CONC 35 g/dL (32-36); MEAN CORPUSCULAR VOLUME 94 fL (80-99); MEAN PLATELET VOLUME 10.1 fL (9.0-12.2); MONOCYTES # (AUTO) 0.5 10^3/uL (0.0-1.0); MONOCYTES % (AUTO) 10 % (0-12); NEUTROPHILS # (AUTO) 3.6 10^3/uL (1.8-7.8); NEUTROPHILS % (AUTO) 68 % (42-75); PLATELET COUNT 205 10^3/uL (130-400); WHITE BLOOD COUNT 5.2 10^3/uL (4.3-11.0)
[2020-03-01 11:16] LABS: ALANINE AMINOTRANSFERASE 15 U/L (0-55); ALBUMIN 4.3 GM/DL (3.2-4.5); ALKALINE PHOSPHATASE 60 U/L (40-136); BILIRUBIN,TOTAL 0.5 MG/DL (0.1-1.0); BUN/CREATININE RATIO 17; CALCIUM 8.9 MG/DL (8.5-10.1); CARBON DIOXIDE 21 MMOL/L (21-32); CHLORIDE 105 MMOL/L (98-107); CREATININE SERUM 0.76 MG/DL (0.60-1.30); GFR ESTIMATED > 60; GLUCOSE 127 MG/DL (70-105); POTASSIUM 4.1 MMOL/L (3.6-5.0); SODIUM 139 MMOL/L (135-145); TOTAL PROTEIN 7.2 GM/DL (6.4-8.2)
== END ==
LOC: ONC 11:10
PROVIDERS: ATTEND Internal Medicine Hematology & Oncology
DX: C15.5 Malignant neoplasm of lower third of esophagus (principal); I10 Essential (primary) hypertension; E11.9 Type 2 diabetes mellitus without complications; Z92.21 Personal history of antineoplastic chemotherapy; Z98.890 Other specified postprocedural states
CPT/HCPCS: 80053; 85025; 90471; 90686

== ENCOUNTER 2020-06-26 05:30 | Outpatient (RCR) | payer MEDICAID ==
[~2020-06-26] VITALS: Ht 188 cm; Wt 90.9 kg
[~2020-06-26 05:30] MED LIST changes: -FLU QUADRIvalent (3YOA+) 2020-21 0.5 ML (CANCER CTR) IM ONE; -LISI10TA2; +LISI10TA25
== END 2020-06-26 09:17 | disposition home or self-care (01) ==
LOC: PREOP 05:30
PROVIDERS: ATTEND Surgery
DX: Z01.812 Encounter for preprocedural laboratory examination (principal); C15.9 Malignant neoplasm of esophagus, unspecified; Z20.822 Contact with and (suspected) exposure to COVID-19
CPT/HCPCS: 87635

== ENCOUNTER 2020-06-28 11:18 | Day surgery (SDC) | payer MEDICAID ==
[~2020-06-28] VITALS: Ht 188 cm; Wt 90.9 kg
[2020-06-28] VITALS (8 sets, daily range): BP systolic 105–123; BP diastolic 65–86
[2020-06-28] MEDS ORDERED: 0.9% SODIUM CHLORIDE PF INJ 20 ML VIAL ONE (11:25)
[2020-06-28] MEDS ORDERED: LIDOCAINE/EPI 1%-1:100,000 (XYLOCAINE) 50 ML ONE (11:25)
[2020-06-28] MEDS ORDERED: HEParin (CENTRAL IV FLUSH) 500 UNIT/5 ML SYR ONE (11:25)
[2020-06-28] MEDS ORDERED: CLINDAMYCIN 600 MG/50 ML IVPB 50 ML IV ONE ×2 (11:52→12:15)
[2020-06-28] MEDS ORDERED: MIDAZOLAM 2 MG/2 ML (VERSED) VIAL ONE (12:00)
[2020-06-28] MEDS ORDERED: PROPOFOL INJECTION 50 ML IV ONE (12:00)
[2020-06-28] MEDS ORDERED: LACTATED RINGERS 1,000 ML IV PRN (12:15)
--- NOTE | 2020-06-28 12:19 | Progress Note-Pre Operative ---
Pre-Operative Progress Note H&P Reviewed The H&P was reviewed, patient examined and no changes noted. Date Seen by Provider: Jun 28, 2020 Time Seen by Provider: 12:19 Date H&P Reviewed: Jun 28, 2020 Time H&P Reviewed: 12:19 Pre-Operative Diagnosis: esophageal ca SUSHMA LUU DO Jun 28, 2020 12:19
[2020-06-28] MEDS ORDERED: proPOfol 200 MG/20 ML (DIPRIVAN) VIAL IV ONE (12:48)
--- NOTE | 2020-06-28 13:13 | Discharge Inst-Simple/Standard ---
Discharge Inst-Standard Patient Instructions/Follow Up Plan of Care/Instructions/FU: 2 weeks Xiao Activity as Tolerated: No Discharge Diet: Regular Diet Other Inst to Patient Follow up Appt: Make appointment for 2 week. Instructions: No lifting greater than 10 pounds. No strenuous activity. May shower in 24 hours, no tub bath or soaking. Use incentive spirometer at home as directed. No Smoking Skin/Wound Care: You have special glue over your incision that will fall off on it's own. Ice pack on 15 min off 30 min and repeat for first 48 hours to decrease swelling and discomfort. Symptoms to Report: Appetite Changes, Extremity Discoloration, Numbness/Tingling, Swelling Increased, Bleeding Excessive, Eyesight Changes, Pain Increased, Urine Color Change, Constipation(Persistent), Fever over 101 degree F, Pain/Pressure in chest, Urinating Difficulty, Cough Up/Vomit Blood, Heart Beat Irreg/Pounding, Pain/Pressure in jaw, Vaginal Bleeding Increase, Cramps in feet or legs, Lightheadedness, Pain/Pressure in shoulder, Diarrhea(Persistent), Memory Changes Suddenly, Questions/Concerns, Weight gain consecutive days, Dizziness/Fainting, Nausea/Vomiting, Shortness of Breath, Weight gain over 2 pounds If questions or concerns contact your physician Or seek help at emergency department. SUSHMA LUU DO Jun 28, 2020 13:13
--- NOTE | 2020-06-28 13:19 | Progress Note-Post Operative ---
Post-Operative Progess Note Surgeon (s)/Wire Welder (s) Surgeon SUSHMA LUU DO Wire Welder: na Pre-Operative Diagnosis esophageal ca Post-Operative Diagnosis same Procedure & Operative Findings Date of Procedure 06/28/20 Procedure Performed/Findings PROCEDURE: Right internal jugular port placement using ultrasound guidance. COMPLICATIONS: None. INDICATIONS: The patient is a 54 year old male recurrent esophageal cancer. Patient understands the risks and benefits of port placement and wished to proceed with the procedure. Consent was signed on the chart. PROCEDURE: The patient was taken to the operating suite, was prepped and draped in the sterile fashion. A surgical pause was performed. Ultrasound was used to locate the internal jugular vein. Once located anesthetic was infiltrated above it. Using micro-access kit, the right internal vein was accessed. Dark nonpulsatile blood was withdrawn. The wire was inserted. Fluoroscopy assured proper placement. The needle was removed. The micro-access dilator was advanced over the wire and the wire was removed. The regular wire was inserted and fluoroscopy assured proper placement. The wire was then secured. Local anesthetic was used to anesthetize from the neck for tunneling down to the right chest and for pocket creation. A 15 blade scalpel was used to make an incision over the right chest. Cautery was used to dissect down to the pectoral fascia. A pocket was created with blunt dissection. The dilator sheath was then advanced over the wire under fluoroscopy and the dilator and wire were removed. The Groshong catheter was inserted through the sheath and the sheath was then removed. The Groshong wire was removed. The catheter was then tunneled to the right chest pocket. Fluoroscopy was used to cut to length and this was then attached to the port which was then placed within the pocket. The port was then accessed without difficulty. It was then flushed with saline and then heparin. The subcutaneous tissues were then reapproximated using 3-0 Vicryl. The areas were then washed and dried. Skin Affix was placed over incision. The insertion point of the neck Skin Affix was placed over the incision. The patient tolerated the procedure well without complication and was taken to recovery room in stable condition. Chest x-ray is pending. Anesthesia Type mac c local Estimated Blood Loss Estimated blood loss (mL): minimal Specimens/Packing Specimens Removed SUSHMA Syed DO Jun 28, 2020 13:19
--- NOTE | 2020-06-28 13:54 | Diagnostic Imaging Report ---
INDICATION: Status post Port-A-Cath placement. COMPARISON: 01/21/2018 TECHNIQUE: Single radiograph of the chest dated 06/28/2020. FINDINGS: Right-sided Port-A-Cath is present with the distal tip overlying the lower aspect of the superior vena cava. No right-sided pneumothorax. Surgical clips overlying the midline chest are again identified and stable. Increasing density is noted within the medial aspect of the left lung base. The lungs otherwise appear clear. Improved aeration since the prior examination. No large volume pleural effusion. No definite pneumothorax, though evaluation is slightly limited as the left lung apex is excluded from the [id number]-cluz. Chronic right clavicular fracture. No acute osseous abnormality. IMPRESSION: Right-sided Port-A-Cath with the distal tip overlying the lower aspect of the superior vena cava without pneumothorax. Increasing density within the medial left lung base, which may relate to underlying gastric pull-through. However, focal infiltrate not excluded. Recommend follow-up frontal and lateral radiograph of the chest for further evaluation. Dictated by: Dictated on workstation # [id number]
--- NOTE | 2020-06-28 13:59 | Diagnostic Imaging Report ---
INDICATION: Fluoroscopy during chest wall port placement. Fluoroscopy was provided in the OR during port placement. 17 seconds of fluoro time was utilized. Images demonstrate a right chest wall port with tip overlying SVC. IMPRESSION: Fluoroscopy for port placement. Dictated by: Dictated on workstation # [id number]
--- NOTE | 2020-06-28 14:25 | Anesthesia-General Post-Op ---
MAC Patient Condition Mental Status/LOC: Same as Preop Cardiovascular: Satisfactory Nausea/Vomiting: Absent Respiratory: Satisfactory Pain: Controlled Complications: Absent Post Op Complications Complications None Follow Up Care/Instructions Patient Instructions None needed. Anesthesiology Discharge Order Discharge Order Patient is doing well, no complaints, stable vital signs, no apparent adverse anesthesia problems. No complications reported per nursing. FREDY CHASE CRNA Jun 28, 2020 14:25
== END 2020-06-28 14:30 | disposition home or self-care (01) ==
LOC: SDC 11:18
PROVIDERS: ATTEND Surgery
DX: C15.5 Malignant neoplasm of lower third of esophagus (principal); I10 Essential (primary) hypertension; F41.9 Anxiety disorder, unspecified; E11.9 Type 2 diabetes mellitus without complications; I87.2 Venous insufficiency (chronic) (peripheral); E66.9 Obesity, unspecified; Z68.25 Body mass index [BMI] 25.0-25.9, adult; Z79.899 Other long term (current) drug therapy; Z79.82 Long term (current) use of aspirin; Z88.0 Allergy status to penicillin; Z87.891 Personal history of nicotine dependence
CPT/HCPCS: 71045; 76000; 87081

== ENCOUNTER → 2020-07-03 | Outpatient (CLI) | payer MEDICAID ==
[~2020-07-03] MED LIST changes: +CATHETER FLUSH 10 ML SYR IV PRN; +HOLD METFORMIN - RECEIVED CONTRAST 20 ML VIAL IV SCH; +IOHEXOL 350 MG/ML 100 ML (OMNIPAQUE 350) VIAL IV ONE; +NS 100 ML (IVPB) BAG IV ONE
--- NOTE | 2020-07-03 09:57 | Diagnostic Imaging Report ---
PROCEDURE: CT chest, abdomen, and pelvis with contrast. TECHNIQUE: Multiple contiguous axial images were obtained through the chest, abdomen, and pelvis after the administration of intravenous contrast. Auto Exposure Controls were utilized during the CT exam to meet ALARA standards for radiation dose reduction. INDICATION: Malignant neoplasm of the esophagus. FINDINGS: The previous CT chest, abdomen, and pelvis exam of 02/09/2019 failed to show any sign of metastatic disease or an acute abnormality. There were post surgical changes, consistent with a prior esophagectomy and gastric pull-through procedure. On this exam, the post surgical changes involving the chest seen previously are again evident and do not appear to have changed significantly. There is still some fluid/debris within the gastric pull-through and much of the stomach lies in the lower thorax on the left. The heart itself is stable in size and remains slightly shifted to the right. The aorta is not abnormally dilated and there is no sign of a dissection. There is no defect within the pulmonary arteries to indicate a pulmonary embolus. There is no mediastinal or hilar adenopathy noted. The thyroid gland is partially obscured by streak artifact. The lungs are generally clear. The chronic changes involving the right upper lobe and right lung base seen previously are again evident and not significantly different. There is no parenchymal lung mass noted. The right-sided Port-A-Cath seen previously is again evident and appears to be in good position with the tip in the distal superior vena cava. The images through the abdomen and pelvis show that the liver is of lower density than usually seen. This does suggest fatty metamorphosis. There is no defect within the liver to indicate metastatic disease. The spleen, pancreas, adrenals, kidneys, gallbladder, aorta, inferior vena cava, and portal vein show no sign of an acute abnormality. There is a fair amount of dense radiopaque material throughout the ascending and transverse colon. This may be related to ingested medication. The colon is otherwise unremarkable. The appendix is not well visualized but there are no indirect signs of acute appendicitis. The urinary bladder and prostate gland are grossly unremarkable. The bone windows show no sign of a fracture or of a destructive lesion. Healed rib fractures are again seen on the right. IMPRESSION: 1. The overall appearance of the chest, abdomen, and pelvis is stable when compared to the prior exam. There is no acute abnormality identified and there is no sign of metastatic disease. 2. The post operative changes involving the thorax, consistent with prior gastric pull-through procedure, are again evident and essentially no different. 3. There is a considerable amount of radiopaque material within the ascending and transverse colon. This may be related to ingested medication. Clinical followup is recommended. Dictated by: Dictated on workstation # [id number]
== END ==
LOC: RAD 09:08
PROVIDERS: ATTEND Internal Medicine Hematology & Oncology
DX: C15.5 Malignant neoplasm of lower third of esophagus (principal)
CPT/HCPCS: 71260; 74177

== ENCOUNTER 2020-08-14 10:24 | Outpatient (RCR) | payer MEDICAID ==
[2020-06-21 11:00] LABS: BASOPHILS # (AUTO) 0.1 10^3/uL (0.0-0.1); BASOPHILS % (AUTO) 1 % (0-10); EOSINOPHILS # (AUTO) 0.3 10^3/uL (0.0-0.3); EOSINOPHILS % (AUTO) 6 % (0-10); HEMATOCRIT 50 % (40-54); LYMPHOCYTES % (AUTO) 20 % (12-44); MEAN CORPUSCULAR HEMOGLOBIN 33 pg (25-34); MEAN CORPUSCULAR HGB CONC 34 g/dL (32-36); MEAN CORPUSCULAR VOLUME 96 fL (80-99); MEAN PLATELET VOLUME 10.5 fL (9.0-12.2); MONOCYTES # (AUTO) 0.5 10^3/uL (0.0-1.0); MONOCYTES % (AUTO) 10 % (0-12); NEUTROPHILS # (AUTO) 3.3 10^3/uL (1.8-7.8); NEUTROPHILS % (AUTO) 64 % (42-75); PLATELET COUNT 203 10^3/uL (130-400); WHITE BLOOD COUNT 5.1 10^3/uL (4.3-11.0)
[2020-06-21 11:20] LABS: ALANINE AMINOTRANSFERASE 15 U/L (0-55); ALBUMIN 4.3 GM/DL (3.2-4.5); ALKALINE PHOSPHATASE 62 U/L (40-136); BILIRUBIN,TOTAL 0.5 MG/DL (0.1-1.0); BUN/CREATININE RATIO 15; CALCIUM 8.9 MG/DL (8.5-10.1); CARBON DIOXIDE 22 MMOL/L (21-32); CHLORIDE 108 MMOL/L (98-107); CREATININE SERUM 0.86 MG/DL (0.60-1.30); GFR ESTIMATED > 60; GLUCOSE 121 MG/DL (70-105); POTASSIUM 4.2 MMOL/L (3.6-5.0); SODIUM 141 MMOL/L (135-145); TOTAL PROTEIN 7.5 GM/DL (6.4-8.2)
[2020-07-17 09:35] LABS: BASOPHILS % (AUTO) 1 % (0-10); EOSINOPHILS # (AUTO) 0.2 10^3/uL (0.0-0.3); EOSINOPHILS % (AUTO) 3 % (0-10); HEMATOCRIT 46 % (40-54); HEMOGLOBIN 15.9 g/dL (13.3-17.7); LYMPHOCYTES # (AUTO) 0.8 10^3/uL (1.0-4.0); LYMPHOCYTES % (AUTO) 15 % (12-44); MEAN CORPUSCULAR HEMOGLOBIN 33 pg (25-34); MEAN CORPUSCULAR HGB CONC 35 g/dL (32-36); MEAN CORPUSCULAR VOLUME 95 fL (80-99); MEAN PLATELET VOLUME 10.2 fL (9.0-12.2); MONOCYTES # (AUTO) 0.6 10^3/uL (0.0-1.0); MONOCYTES % (AUTO) 11 % (0-12); NEUTROPHILS # (AUTO) 3.9 10^3/uL (1.8-7.8); NEUTROPHILS % (AUTO) 70 % (42-75); PLATELET COUNT 200 10^3/uL (130-400); WHITE BLOOD COUNT 5.5 10^3/uL (4.3-11.0)
[2020-07-17 09:56] LABS: ALANINE AMINOTRANSFERASE 15 U/L (0-55); ALBUMIN 3.9 GM/DL (3.2-4.5); ALKALINE PHOSPHATASE 60 U/L (40-136); BILIRUBIN,TOTAL 0.4 MG/DL (0.1-1.0); BUN/CREATININE RATIO 12; CALCIUM 8.6 MG/DL (8.5-10.1); CARBON DIOXIDE 25 MMOL/L (21-32); CHLORIDE 105 MMOL/L (98-107); CREATININE SERUM 0.77 MG/DL (0.60-1.30); GFR ESTIMATED > 60; GLUCOSE 128 MG/DL (70-105); POTASSIUM 3.5 MMOL/L (3.6-5.0); SODIUM 139 MMOL/L (135-145); TOTAL PROTEIN 6.7 GM/DL (6.4-8.2)
[2020-07-31 09:31] LABS: BASOPHILS % (AUTO) 1 % (0-10); EOSINOPHILS # (AUTO) 0.2 10^3/uL (0.0-0.3); EOSINOPHILS % (AUTO) 4 % (0-10); HEMATOCRIT 45 % (40-54); HEMOGLOBIN 15.6 g/dL (13.3-17.7); LYMPHOCYTES # (AUTO) 0.8 10^3/uL (1.0-4.0); LYMPHOCYTES % (AUTO) 17 % (12-44); MEAN CORPUSCULAR HEMOGLOBIN 33 pg (25-34); MEAN CORPUSCULAR HGB CONC 34 g/dL (32-36); MEAN CORPUSCULAR VOLUME 95 fL (80-99); MEAN PLATELET VOLUME 9.4 fL (9.0-12.2); MONOCYTES # (AUTO) 0.5 10^3/uL (0.0-1.0); MONOCYTES % (AUTO) 12 % (0-12); NEUTROPHILS % (AUTO) 67 % (42-75); PLATELET COUNT 181 10^3/uL (130-400); WHITE BLOOD COUNT 4.5 10^3/uL (4.3-11.0)
[2020-07-31 09:49] LABS: ALANINE AMINOTRANSFERASE 15 U/L (0-55); ALBUMIN 4.1 GM/DL (3.2-4.5); ALKALINE PHOSPHATASE 69 U/L (40-136); BILIRUBIN,TOTAL 0.6 MG/DL (0.1-1.0); BUN/CREATININE RATIO 18; CALCIUM 8.5 MG/DL (8.5-10.1); CARBON DIOXIDE 24 MMOL/L (21-32); CHLORIDE 104 MMOL/L (98-107); CREATININE SERUM 0.82 MG/DL (0.60-1.30); GFR ESTIMATED > 60; GLUCOSE 132 MG/DL (70-105); POTASSIUM 3.7 MMOL/L (3.6-5.0); SODIUM 138 MMOL/L (135-145)
[~2020-08-14 10:24] MED LIST changes: -CATHETER FLUSH 10 ML SYR IV PRN; +D5W 500 ML IV (CANCER CTR) 500 ML IV SCH; +FAMOTIDINE 20MG/2ML IV (CANCER CTR) ONE; +FOSAPREPITANT (CANCER CENTER) 150 MG in NS (IVPB) CANCER CENTER ONLY 150 ML IV SCH; -HOLD METFORMIN - RECEIVED CONTRAST 20 ML VIAL IV SCH; -IOHEXOL 350 MG/ML 100 ML (OMNIPAQUE 350) VIAL IV ONE; +LEUCOVORIN CALCIUM 500 MG, LEUCOVORIN CALCIUM 200 MG, LEUCOVORIN CALCIUM 100 MG in D5W ... IV SCH; -NS 100 ML (IVPB) BAG IV ONE; +OXALIPLATIN 170 MG in D5W 250 ML IVPB (CANCER CTR) 250 ML IV SCH; +OXALIPLATIN 180 MG in D5W 250 ML IVPB (CANCER CTR) 250 ML IV SCH; +PALONOSETRON HCL 0.25 MG, DEXAMETHASONE PF INJ (CANCER C 10 MG in NS (IVPB) CANCER CENT... IV SCH; +diphenhydrAMINE 25 MG TAB (BENADRYL) CANCER CENTER PO ONE; +diphenhydrAMINE 50 MG/ML INJ (CANCER CENTER) ONE; +methylPREDNISolone 125 MG/2 ML (SOLU-MEDROL) CANCER CTR ONE
[2020-08-14 10:45] LABS: BASOPHILS # (AUTO) 0.1 10^3/uL (0.0-0.1); BASOPHILS % (AUTO) 1 % (0-10); EOSINOPHILS # (AUTO) 0.2 10^3/uL (0.0-0.3); EOSINOPHILS % (AUTO) 4 % (0-10); HEMATOCRIT 44 % (40-54); LYMPHOCYTES # (AUTO) 0.8 10^3/uL (1.0-4.0); LYMPHOCYTES % (AUTO) 19 % (12-44); MEAN CORPUSCULAR HEMOGLOBIN 32 pg (25-34); MEAN CORPUSCULAR HGB CONC 34 g/dL (32-36); MEAN CORPUSCULAR VOLUME 96 fL (80-99); MEAN PLATELET VOLUME 9.7 fL (9.0-12.2); MONOCYTES # (AUTO) 0.6 10^3/uL (0.0-1.0); MONOCYTES % (AUTO) 13 % (0-12); NEUTROPHILS # (AUTO) 2.7 10^3/uL (1.8-7.8); NEUTROPHILS % (AUTO) 63 % (42-75); PLATELET COUNT 144 10^3/uL (130-400); WHITE BLOOD COUNT 4.3 10^3/uL (4.3-11.0)
[2020-08-14] MEDS ORDERED: FAMOTIDINE 20MG/2ML IV (CANCER CTR) ONE (10:55)
[2020-08-14] MEDS ORDERED: diphenhydrAMINE 25 MG TAB (BENADRYL) CANCER CENTER PO ONE (10:55)
[2020-08-14 11:09] LABS: ALANINE AMINOTRANSFERASE 16 U/L (0-55); ALBUMIN 3.9 GM/DL (3.2-4.5); ALKALINE PHOSPHATASE 68 U/L (40-136); BILIRUBIN,TOTAL 0.6 MG/DL (0.1-1.0); BUN/CREATININE RATIO 20; CALCIUM 8.6 MG/DL (8.5-10.1); CARBON DIOXIDE 27 MMOL/L (21-32); CHLORIDE 105 MMOL/L (98-107); GFR ESTIMATED > 60; GLUCOSE 141 MG/DL (70-105); POTASSIUM 3.9 MMOL/L (3.6-5.0); SODIUM 139 MMOL/L (135-145); TOTAL PROTEIN 6.6 GM/DL (6.4-8.2)
[2020-08-14] MEDS ORDERED: NS IV SCH (11:15)
[2020-08-14] MEDS ORDERED: FLUOROURACIL IV SCH (11:15)
== END 2020-08-21 | disposition home or self-care (01) ==
LOC: ONC 10:24
PROVIDERS: ATTEND Internal Medicine Hematology & Oncology
DX: C15.5 Malignant neoplasm of lower third of esophagus (principal); I10 Essential (primary) hypertension; E11.9 Type 2 diabetes mellitus without complications; Z92.21 Personal history of antineoplastic chemotherapy; Z92.3 Personal history of irradiation; Z98.890 Other specified postprocedural states
CPT/HCPCS: 36591; 80053; 85025; 96365; 96367; 96368; 96375; 96411; 96413; 96416; 99213

== ENCOUNTER → 2020-10-18 | Outpatient (CLI) | payer MEDICAID ==
[~2020-10-18] MED LIST changes: -D5W 500 ML IV (CANCER CTR) 500 ML IV SCH; -FAMOTIDINE 20MG/2ML IV (CANCER CTR) ONE; -FOSAPREPITANT (CANCER CENTER) 150 MG in NS (IVPB) CANCER CENTER ONLY 150 ML IV SCH; -LEUCOVORIN CALCIUM 500 MG, LEUCOVORIN CALCIUM 200 MG, LEUCOVORIN CALCIUM 100 MG in D5W ... IV SCH; -OXALIPLATIN 170 MG in D5W 250 ML IVPB (CANCER CTR) 250 ML IV SCH; -OXALIPLATIN 180 MG in D5W 250 ML IVPB (CANCER CTR) 250 ML IV SCH; -PALONOSETRON HCL 0.25 MG, DEXAMETHASONE PF INJ (CANCER C 10 MG in NS (IVPB) CANCER CENT... IV SCH; -diphenhydrAMINE 25 MG TAB (BENADRYL) CANCER CENTER PO ONE; -diphenhydrAMINE 50 MG/ML INJ (CANCER CENTER) ONE; -methylPREDNISolone 125 MG/2 ML (SOLU-MEDROL) CANCER CTR ONE
== END ==
LOC: CARD 14:00
PROVIDERS: ATTEND Nurse Practitioner Adult Health
DX: Z51.11 Encounter for antineoplastic chemotherapy (principal); I35.1 Nonrheumatic aortic (valve) insufficiency; Z86.79 Personal history of other diseases of the circulatory system
CPT/HCPCS: 93306

== ENCOUNTER 2020-10-30 08:56 | Outpatient (RCR) | payer MEDICAID ==
[2020-08-28 09:46] LABS: BASOPHILS % (AUTO) 1 % (0-10); EOSINOPHILS # (AUTO) 0.2 10^3/uL (0.0-0.3); EOSINOPHILS % (AUTO) 4 % (0-10); HEMATOCRIT 45 % (40-54); HEMOGLOBIN 15.8 g/dL (13.3-17.7); LYMPHOCYTES # (AUTO) 0.8 10^3/uL (1.0-4.0); LYMPHOCYTES % (AUTO) 17 % (12-44); MEAN CORPUSCULAR HEMOGLOBIN 33 pg (25-34); MEAN CORPUSCULAR HGB CONC 35 g/dL (32-36); MEAN CORPUSCULAR VOLUME 95 fL (80-99); MEAN PLATELET VOLUME 9.4 fL (9.0-12.2); MONOCYTES # (AUTO) 0.5 10^3/uL (0.0-1.0); MONOCYTES % (AUTO) 12 % (0-12); NEUTROPHILS # (AUTO) 2.9 10^3/uL (1.8-7.8); NEUTROPHILS % (AUTO) 65 % (42-75); PLATELET COUNT 157 10^3/uL (130-400); WHITE BLOOD COUNT 4.4 10^3/uL (4.3-11.0)
[2020-08-28 10:12] LABS: ALANINE AMINOTRANSFERASE 11 U/L (0-55); ALBUMIN 4.1 GM/DL (3.2-4.5); ALKALINE PHOSPHATASE 66 U/L (40-136); BILIRUBIN,TOTAL 0.4 MG/DL (0.1-1.0); BUN/CREATININE RATIO 16; CALCIUM 8.5 MG/DL (8.5-10.1); CARBON DIOXIDE 26 MMOL/L (21-32); CHLORIDE 104 MMOL/L (98-107); CREATININE SERUM 0.81 MG/DL (0.60-1.30); GFR ESTIMATED > 60; GLUCOSE 135 MG/DL (70-105); POTASSIUM 3.9 MMOL/L (3.6-5.0); SODIUM 138 MMOL/L (135-145); TOTAL PROTEIN 6.7 GM/DL (6.4-8.2)
[2020-09-11 09:17] LABS: BASOPHILS % (AUTO) 1 % (0-10); EOSINOPHILS # (AUTO) 0.2 10^3/uL (0.0-0.3); EOSINOPHILS % (AUTO) 5 % (0-10); HEMATOCRIT 45 % (40-54); HEMOGLOBIN 15.1 g/dL (13.3-17.7); LYMPHOCYTES # (AUTO) 0.7 10^3/uL (1.0-4.0); LYMPHOCYTES % (AUTO) 17 % (12-44); MEAN CORPUSCULAR HEMOGLOBIN 33 pg (25-34); MEAN CORPUSCULAR HGB CONC 34 g/dL (32-36); MEAN CORPUSCULAR VOLUME 97 fL (80-99); MEAN PLATELET VOLUME 9.9 fL (9.0-12.2); MONOCYTES # (AUTO) 0.6 10^3/uL (0.0-1.0); MONOCYTES % (AUTO) 14 % (0-12); NEUTROPHILS # (AUTO) 2.7 10^3/uL (1.8-7.8); NEUTROPHILS % (AUTO) 63 % (42-75); PLATELET COUNT 152 10^3/uL (130-400); WHITE BLOOD COUNT 4.3 10^3/uL (4.3-11.0)
[2020-09-11 09:35] LABS: ALANINE AMINOTRANSFERASE 17 U/L (0-55); ALKALINE PHOSPHATASE 64 U/L (40-136); BILIRUBIN,TOTAL 0.5 MG/DL (0.1-1.0); BUN/CREATININE RATIO 15; CALCIUM 8.8 MG/DL (8.5-10.1); CARBON DIOXIDE 24 MMOL/L (21-32); CHLORIDE 107 MMOL/L (98-107); CREATININE SERUM 0.81 MG/DL (0.60-1.30); GFR ESTIMATED > 60; GLUCOSE 125 MG/DL (70-105); POTASSIUM 3.9 MMOL/L (3.6-5.0); SODIUM 139 MMOL/L (135-145); TOTAL PROTEIN 6.5 GM/DL (6.4-8.2)
[2020-09-25 10:15] LABS: BASOPHILS % (AUTO) 1 % (0-10); EOSINOPHILS # (AUTO) 0.2 10^3/uL (0.0-0.3); EOSINOPHILS % (AUTO) 4 % (0-10); HEMATOCRIT 47 % (40-54); HEMOGLOBIN 16.2 g/dL (13.3-17.7); LYMPHOCYTES # (AUTO) 0.6 10^3/uL (1.0-4.0); LYMPHOCYTES % (AUTO) 15 % (12-44); MEAN CORPUSCULAR HEMOGLOBIN 34 pg (25-34); MEAN CORPUSCULAR HGB CONC 35 g/dL (32-36); MEAN CORPUSCULAR VOLUME 97 fL (80-99); MEAN PLATELET VOLUME 9.7 fL (9.0-12.2); MONOCYTES # (AUTO) 0.5 10^3/uL (0.0-1.0); MONOCYTES % (AUTO) 11 % (0-12); NEUTROPHILS # (AUTO) 2.8 10^3/uL (1.8-7.8); NEUTROPHILS % (AUTO) 67 % (42-75); PLATELET COUNT 191 10^3/uL (130-400); WHITE BLOOD COUNT 4.2 10^3/uL (4.3-11.0)
[2020-09-25 10:37] LABS: ALANINE AMINOTRANSFERASE 17 U/L (0-55); ALBUMIN 4.1 GM/DL (3.2-4.5); ALKALINE PHOSPHATASE 68 U/L (40-136); BILIRUBIN,TOTAL 0.5 MG/DL (0.1-1.0); BUN/CREATININE RATIO 18; CALCIUM 9.2 MG/DL (8.5-10.1); CARBON DIOXIDE 26 MMOL/L (21-32); CHLORIDE 104 MMOL/L (98-107); CREATININE SERUM 0.82 MG/DL (0.60-1.30); GFR ESTIMATED > 60; GLUCOSE 146 MG/DL (70-105); POTASSIUM 4.1 MMOL/L (3.6-5.0); SODIUM 138 MMOL/L (135-145); TOTAL PROTEIN 7.1 GM/DL (6.4-8.2)
[2020-10-01 11:07] LABS: BASOPHILS % (AUTO) 1 % (0-10); EOSINOPHILS # (AUTO) 0.1 10^3/uL (0.0-0.3); EOSINOPHILS % (AUTO) 4 % (0-10); HEMATOCRIT 42 % (40-54); HEMOGLOBIN 14.5 g/dL (13.3-17.7); LYMPHOCYTES # (AUTO) 0.8 10^3/uL (1.0-4.0); LYMPHOCYTES % (AUTO) 23 % (12-44); MEAN CORPUSCULAR HEMOGLOBIN 34 pg (25-34); MEAN CORPUSCULAR HGB CONC 35 g/dL (32-36); MEAN CORPUSCULAR VOLUME 97 fL (80-99); MONOCYTES # (AUTO) 0.5 10^3/uL (0.0-1.0); MONOCYTES % (AUTO) 14 % (0-12); NEUTROPHILS % (AUTO) 58 % (42-75); PLATELET COUNT 196 10^3/uL (130-400); WHITE BLOOD COUNT 3.4 10^3/uL (4.3-11.0)
[2020-10-01 11:28] LABS: ALANINE AMINOTRANSFERASE 12 U/L (0-55); ALBUMIN 3.9 GM/DL (3.2-4.5); ALKALINE PHOSPHATASE 68 U/L (40-136); BILIRUBIN,TOTAL 0.7 MG/DL (0.1-1.0); BUN/CREATININE RATIO 22; CARBON DIOXIDE 25 MMOL/L (21-32); CHLORIDE 105 MMOL/L (98-107); CREATININE SERUM 0.78 MG/DL (0.60-1.30); GFR ESTIMATED > 60; GLUCOSE 179 MG/DL (70-105); POTASSIUM 3.7 MMOL/L (3.6-5.0); SODIUM 138 MMOL/L (135-145); TOTAL PROTEIN 6.8 GM/DL (6.4-8.2)
[2020-10-16 09:35] LABS: BASOPHILS % (AUTO) 1 % (0-10); EOSINOPHILS # (AUTO) 0.2 10^3/uL (0.0-0.3); EOSINOPHILS % (AUTO) 6 % (0-10); HEMATOCRIT 45 % (40-54); HEMOGLOBIN 14.9 g/dL (13.3-17.7); LYMPHOCYTES # (AUTO) 0.7 10^3/uL (1.0-4.0); LYMPHOCYTES % (AUTO) 17 % (12-44); MEAN CORPUSCULAR HEMOGLOBIN 34 pg (25-34); MEAN CORPUSCULAR HGB CONC 34 g/dL (32-36); MEAN CORPUSCULAR VOLUME 100 fL (80-99); MEAN PLATELET VOLUME 9.8 fL (9.0-12.2); MONOCYTES # (AUTO) 0.4 10^3/uL (0.0-1.0); MONOCYTES % (AUTO) 10 % (0-12); NEUTROPHILS # (AUTO) 2.6 10^3/uL (1.8-7.8); NEUTROPHILS % (AUTO) 66 % (42-75); PLATELET COUNT 173 10^3/uL (130-400)
[2020-10-16 09:53] LABS: ALANINE AMINOTRANSFERASE 15 U/L (0-55); ALBUMIN 3.9 GM/DL (3.2-4.5); ALKALINE PHOSPHATASE 63 U/L (40-136); BILIRUBIN,TOTAL 0.5 MG/DL (0.1-1.0); BUN/CREATININE RATIO 15; CALCIUM 8.7 MG/DL (8.5-10.1); CARBON DIOXIDE 24 MMOL/L (21-32); CHLORIDE 106 MMOL/L (98-107); CREATININE SERUM 0.81 MG/DL (0.60-1.30); GFR ESTIMATED > 60; GLUCOSE 151 MG/DL (70-105); POTASSIUM 3.9 MMOL/L (3.6-5.0); SODIUM 138 MMOL/L (135-145); TOTAL PROTEIN 6.8 GM/DL (6.4-8.2)
[~2020-10-30 08:56] MED LIST changes: +D5W 500 ML IV (CANCER CTR) 500 ML IV SCH; +FAMOTIDINE 20MG/2ML IV (CANCER CTR) ONE; +FLUOROURACIL IV SCH; +FOSAPREPITANT (CANCER CENTER) 150 MG in NS (IVPB) CANCER CENTER ONLY 150 ML IV SCH; +LEUCOVORIN CALCIUM 500 MG, LEUCOVORIN CALCIUM 200 MG, LEUCOVORIN CALCIUM 100 MG in D5W ... IV SCH; +NS IV 1000 ML (CANCER CTR) 1,000 ML IV SCH; +NS IV SCH; +PALONOSETRON HCL 0.25 MG, DEXAMETHASONE PF INJ (CANCER C 10 MG in NS (IVPB) CANCER CENT... IV SCH; +TRASTUZUMAB PKRB IV SCH; +diphenhydrAMINE 25 MG TAB (BENADRYL) CANCER CENTER PO ONE
[2020-10-30 09:18] LABS: BASOPHILS # (AUTO) 0.1 10^3/uL (0.0-0.1); BASOPHILS % (AUTO) 1 % (0-10); EOSINOPHILS # (AUTO) 0.2 10^3/uL (0.0-0.3); EOSINOPHILS % (AUTO) 4 % (0-10); HEMATOCRIT 43 % (40-54); HEMOGLOBIN 14.9 g/dL (13.3-17.7); LYMPHOCYTES # (AUTO) 0.8 X 10^3 (1.0-4.0); LYMPHOCYTES % (AUTO) 18 % (12-44); MEAN CORPUSCULAR HEMOGLOBIN 34 pg (25-34); MEAN CORPUSCULAR HGB CONC 34 g/dL (32-36); MEAN CORPUSCULAR VOLUME 99 fL (80-99); MEAN PLATELET VOLUME 10.5 fL (9.0-12.2); MONOCYTES # (AUTO) 0.6 X 10^3 (0.0-1.0); MONOCYTES % (AUTO) 13 % (0-12); NEUTROPHILS # (AUTO) 2.8 X 10^3 (1.8-7.8); NEUTROPHILS % (AUTO) 64 % (42-75); PLATELET COUNT 179 10^3/uL (130-400); WHITE BLOOD COUNT 4.4 10^3/uL (4.3-11.0)
[2020-10-30 09:40] LABS: ALANINE AMINOTRANSFERASE 16 U/L (0-55); ALKALINE PHOSPHATASE 65 U/L (40-136); BILIRUBIN,TOTAL 0.5 MG/DL (0.1-1.0); BUN/CREATININE RATIO 20; CALCIUM 8.8 MG/DL (8.5-10.1); CARBON DIOXIDE 24 MMOL/L (21-32); CHLORIDE 106 MMOL/L (98-107); CREATININE SERUM 0.81 MG/DL (0.60-1.30); GFR ESTIMATED > 60; GLUCOSE 141 MG/DL (70-105); SODIUM 139 MMOL/L (135-145); TOTAL PROTEIN 6.8 GM/DL (6.4-8.2)
[2020-10-30] MEDS ORDERED: FAMOTIDINE 20MG/2ML IV (CANCER CTR) IV SCH (09:45)
[2020-10-30] MEDS ORDERED: TRASTUZUMAB PKRB IV SCH (09:45)
[2020-10-30] MEDS ORDERED: NS IV SCH (09:45)
[2020-10-30] MEDS ORDERED: diphenhydrAMINE 25 MG TAB (BENADRYL) CANCER CENTER PO SCH (09:45)
[2020-10-30] MEDS ORDERED: NS IV 1000 ML (CANCER CTR) IV SCH (09:45)
== END 2020-11-12 11:52 | disposition home or self-care (01) ==
LOC: ONC 08:56
PROVIDERS: ATTEND Internal Medicine Hematology & Oncology
DX: Z51.11 Encounter for antineoplastic chemotherapy (principal); C15.5 Malignant neoplasm of lower third of esophagus; I10 Essential (primary) hypertension; E11.9 Type 2 diabetes mellitus without complications; Z92.21 Personal history of antineoplastic chemotherapy; Z92.3 Personal history of irradiation; Z98.890 Other specified postprocedural states
CPT/HCPCS: 36591; 80053; 85025; 96365; 96367; 96375; 96409; 96413; 99213

== ENCOUNTER 2020-11-13 09:33 | Outpatient (RCR) | payer MEDICAID ==
[2020-11-13 09:12] LABS: BASOPHILS % (AUTO) 1 % (0-10); EOSINOPHILS # (AUTO) 0.2 10^3/uL (0.0-0.3); EOSINOPHILS % (AUTO) 5 % (0-10); HEMATOCRIT 43 % (40-54); HEMOGLOBIN 14.4 g/dL (13.3-17.7); LYMPHOCYTES # (AUTO) 0.8 10^3/uL (1.0-4.0); LYMPHOCYTES % (AUTO) 15 % (12-44); MEAN CORPUSCULAR HEMOGLOBIN 34 pg (25-34); MEAN CORPUSCULAR HGB CONC 34 g/dL (32-36); MEAN CORPUSCULAR VOLUME 100 fL (80-99); MONOCYTES # (AUTO) 0.5 10^3/uL (0.0-1.0); MONOCYTES % (AUTO) 10 % (0-12); NEUTROPHILS # (AUTO) 3.5 10^3/uL (1.8-7.8); NEUTROPHILS % (AUTO) 69 % (42-75); PLATELET COUNT 175 10^3/uL (130-400)
[2020-11-13 09:32] LABS: ALBUMIN 4.1 GM/DL (3.2-4.5); BILIRUBIN,TOTAL 0.5 MG/DL (0.1-1.0); CALCIUM 8.8 MG/DL (8.5-10.1); CREATININE SERUM 0.82 MG/DL (0.60-1.30)
[~2020-11-13 09:33] MED LIST changes: -D5W 500 ML IV (CANCER CTR) 500 ML IV SCH; +FAMOTIDINE 20MG/2ML IV (CANCER CTR) IV SCH; -FAMOTIDINE 20MG/2ML IV (CANCER CTR) ONE; -FOSAPREPITANT (CANCER CENTER) 150 MG in NS (IVPB) CANCER CENTER ONLY 150 ML IV SCH; -PALONOSETRON HCL 0.25 MG, DEXAMETHASONE PF INJ (CANCER C 10 MG in NS (IVPB) CANCER CENT... IV SCH; -diphenhydrAMINE 25 MG TAB (BENADRYL) CANCER CENTER PO ONE; +diphenhydrAMINE 25 MG TAB (BENADRYL) CANCER CENTER PO SCH
== END 2020-11-27 09:15 | disposition home or self-care (01) ==
LOC: ONC 09:33
PROVIDERS: ATTEND Internal Medicine Hematology & Oncology
DX: Z51.11 Encounter for antineoplastic chemotherapy (principal); C15.5 Malignant neoplasm of lower third of esophagus; I10 Essential (primary) hypertension; E11.9 Type 2 diabetes mellitus without complications; Z92.21 Personal history of antineoplastic chemotherapy; Z92.3 Personal history of irradiation; Z98.890 Other specified postprocedural states; Z87.891 Personal history of nicotine dependence
CPT/HCPCS: 36591; 80053; 85025; 96367; 96375; 96413

== ENCOUNTER → 2021-01-07 | Outpatient (CLI) | payer MEDICAID ==
[~2021-01-07] MED LIST changes: -FAMOTIDINE 20MG/2ML IV (CANCER CTR) IV SCH; -FLUOROURACIL IV SCH; -LEUCOVORIN CALCIUM 500 MG, LEUCOVORIN CALCIUM 200 MG, LEUCOVORIN CALCIUM 100 MG in D5W ... IV SCH; -NS IV 1000 ML (CANCER CTR) 1,000 ML IV SCH; -NS IV SCH; -TRASTUZUMAB PKRB IV SCH; -diphenhydrAMINE 25 MG TAB (BENADRYL) CANCER CENTER PO SCH
--- NOTE | 2021-01-07 13:25 | Diagnostic Imaging Report ---
INDICATION: Palpable abnormality in right axilla. Technique: Targeted ultrasound right axilla was performed FINDINGS: There is no discrete fluid collection or mass in the right axilla. There is a small reactive appearing lymph node. IMPRESSION: Small reactive appearing lymph node right axilla otherwise unremarkable right axillary ultrasound. Dictated by: Dictated on workstation # [id number]
== END ==
LOC: RAD 10:15
PROVIDERS: ATTEND Surgery
DX: R22.9 Localized swelling, mass and lump, unspecified (principal)
CPT/HCPCS: 76881

== ENCOUNTER → 2021-01-22 | Outpatient (CLI) | payer MEDICAID ==
--- NOTE | 2021-01-22 13:38 | Diagnostic Imaging Report ---
Indication: Malignant neoplasm of the lower esophagus with subsequent restaging and treatment response assessment. Serum blood glucose level at the time of injection is 150 mg/dL. Patient was administered 14.5 mCi F-18 FDG intravenously in left antecubital location PET Imaging was performed from the top of skull to mid thighs. Noncontrast CT was performed for attenuation correction and anatomic correlation. Correlation is made with prior PET/CT from 08/25/2017. There is symmetric activity throughout the brain. There appears to be probable physiologic activity in the oral cavity. Soft tissues of the neck are unremarkable. There are postoperative changes of esophagectomy with gastric pull-through. No residual or recurrent hypermetabolic mass is identified. No definite hypermetabolic lymphadenopathy in the chest is identified. No pulmonary parenchymal hypermetabolism is seen. Abdomen and pelvis demonstrate physiologic activity throughout the gastrointestinal and genitourinary tracts. No suspicious hypermetabolism is identified. IMPRESSION: Unremarkable PET/CT study. No suspicious foci of hypermetabolism are identified to suggest recurrent or metastatic disease. Dictated by: Dictated on workstation # [id number]
== END ==
LOC: RAD 09:10
PROVIDERS: ATTEND Internal Medicine Hematology & Oncology
DX: C15.5 Malignant neoplasm of lower third of esophagus (principal)

== ENCOUNTER 2021-02-14 10:41 | Outpatient (RCR) | payer MEDICAID ==
[2020-12-04 11:00] LABS: BASOPHILS # (AUTO) 0.1 10^3/uL (0.0-0.1); BASOPHILS % (AUTO) 1 % (0-10); EOSINOPHILS # (AUTO) 0.1 10^3/uL (0.0-0.3); EOSINOPHILS % (AUTO) 3 % (0-10); HEMATOCRIT 44 % (40-54); HEMOGLOBIN 15.4 g/dL (13.3-17.7); LYMPHOCYTES # (AUTO) 0.6 10^3/uL (1.0-4.0); LYMPHOCYTES % (AUTO) 14 % (12-44); MEAN CORPUSCULAR HEMOGLOBIN 34 pg (25-34); MEAN CORPUSCULAR HGB CONC 35 g/dL (32-36); MEAN CORPUSCULAR VOLUME 99 fL (80-99); MONOCYTES # (AUTO) 0.6 10^3/uL (0.0-1.0); MONOCYTES % (AUTO) 13 % (0-12); NEUTROPHILS # (AUTO) 2.9 10^3/uL (1.8-7.8); NEUTROPHILS % (AUTO) 69 % (42-75); PLATELET COUNT 195 10^3/uL (130-400); WHITE BLOOD COUNT 4.2 10^3/uL (4.3-11.0)
[2020-12-04 11:11] LABS: ALBUMIN 4.1 GM/DL (3.2-4.5); BILIRUBIN,TOTAL 0.5 MG/DL (0.1-1.0); CREATININE SERUM 0.86 MG/DL (0.60-1.30); POTASSIUM 4.3 MMOL/L (3.6-5.0); TOTAL PROTEIN 7.1 GM/DL (6.4-8.2)
[2020-12-18 11:27] LABS: BASOPHILS % (AUTO) 1 % (0-10); EOSINOPHILS # (AUTO) 0.2 10^3/uL (0.0-0.3); EOSINOPHILS % (AUTO) 5 % (0-10); HEMATOCRIT 42 % (40-54); HEMOGLOBIN 14.8 g/dL (13.3-17.7); LYMPHOCYTES # (AUTO) 0.9 10^3/uL (1.0-4.0); LYMPHOCYTES % (AUTO) 20 % (12-44); MEAN CORPUSCULAR HEMOGLOBIN 34 pg (25-34); MEAN CORPUSCULAR HGB CONC 35 g/dL (32-36); MEAN CORPUSCULAR VOLUME 98 fL (80-99); MEAN PLATELET VOLUME 9.9 fL (9.0-12.2); MONOCYTES # (AUTO) 0.5 10^3/uL (0.0-1.0); MONOCYTES % (AUTO) 13 % (0-12); NEUTROPHILS # (AUTO) 2.6 10^3/uL (1.8-7.8); NEUTROPHILS % (AUTO) 61 % (42-75); PLATELET COUNT 150 10^3/uL (130-400); WHITE BLOOD COUNT 4.2 10^3/uL (4.3-11.0)
[2020-12-18 11:53] LABS: ALBUMIN 4.1 GM/DL (3.2-4.5); BILIRUBIN,TOTAL 0.6 MG/DL (0.1-1.0); CALCIUM 9.3 MG/DL (8.5-10.1); CREATININE SERUM 0.82 MG/DL (0.60-1.30); POTASSIUM 4.1 MMOL/L (3.6-5.0); TOTAL PROTEIN 6.8 GM/DL (6.4-8.2)
[~2021-02-14] VITALS: Ht 190.5 cm; Wt 95.3 kg
[~2021-02-14 10:41] MED LIST changes: +FAMOTIDINE 20MG/2ML IV (CANCER CTR) IV SCH; +FLUOROURACIL IV SCH; +LEUCOVORIN CALCIUM 500 MG, LEUCOVORIN CALCIUM 200 MG, LEUCOVORIN CALCIUM 100 MG in D5W ... IV SCH; +LEUCOVORIN CALCIUM 800 MG in D5W 250 ML IVPB (CANCER CTR) 250 ML IV SCH; +NS IV 1000 ML (CANCER CTR) 1,000 ML IV SCH; +NS IV SCH; +TRASTUZUMAB PKRB IV SCH; +diphenhydrAMINE 25 MG TAB (BENADRYL) CANCER CENTER PO SCH
== END 2021-02-25 | disposition home or self-care (01) ==
LOC: ONC 10:41
PROVIDERS: ATTEND Internal Medicine Hematology & Oncology
DX: Z51.11 Encounter for antineoplastic chemotherapy (principal); C15.5 Malignant neoplasm of lower third of esophagus; I10 Essential (primary) hypertension; E11.9 Type 2 diabetes mellitus without complications; E66.9 Obesity, unspecified
CPT/HCPCS: 36591; 80053; 85025; 96365; 96368; 96375; 96413; 99213

== ENCOUNTER 2021-03-04 16:42 | Emergency (ER) | payer MEDICAID ==
[~2021-03-04] VITALS: Ht 187 cm; Wt 97.0 kg
[~2021-03-04 16:42] MED LIST changes: -FAMOTIDINE 20MG/2ML IV (CANCER CTR) IV SCH; -FLUOROURACIL IV SCH; -LEUCOVORIN CALCIUM 500 MG, LEUCOVORIN CALCIUM 200 MG, LEUCOVORIN CALCIUM 100 MG in D5W ... IV SCH; -LEUCOVORIN CALCIUM 800 MG in D5W 250 ML IVPB (CANCER CTR) 250 ML IV SCH; -NS IV 1000 ML (CANCER CTR) 1,000 ML IV SCH; -NS IV SCH; -TRASTUZUMAB PKRB IV SCH; -diphenhydrAMINE 25 MG TAB (BENADRYL) CANCER CENTER PO SCH
--- NOTE | 2021-03-04 17:24 | ED Integumentary General ---
General Chief Complaint: Skin/Wound Problems Stated Complaint: L LEG MRSA WOUND Nursing Triage Note: PT AMBULATORY TO ER WITH C/O L LEG INFECTION. PT STATES SINCE STARTING CHEMO AGAIN HE HAS HAD MULITPLE SKIN INFECTIONS POP UP MOSTLY UNDER HIS ARMS. HE SAID HIS PCP THOUGHT IT WAS STAPH INFECTION, BUT GOT RESULTS BACK AND IT SHOWED MRSA Source: patient Exam Limitations: no limitations History of Present Illness Date Seen by Provider: Mar 04, 2021 Time Seen by Provider: 17:15 Initial Comments Patient is a 55-year-old male who presents to the emergency department today with a chief complaint of an abscess with cellulitic changes with abscess to his left ord. Patient states the wound has been there for about a week. He went to [facility] urgent care on Thursday and was placed on Bactrim. Family member at the bedside states that "doxycycline is always the antibiotic that makes him better". She states he has "MRSA". Family member states that he has had 3 days of the Bactrim and no improvement. Patient denies any fevers or chills. No shortness of breath, cough or congestion. No nausea. No problems with appetite. No problems with bowel or bladder. He states he has had multiple wounds in the past mostly under his arms and it has been "MRSA". Patient states he is not a diabetic. He is not currently on chemo. He does have a history of esophageal cancer and follows with Dr. Palmer. He also goes to . Patient was initially apprehensive about incision and drainage of the abscess secondary to problems with wound healing. The abscess is very large and fluctuant. I explained that I felt like without drainage it would probably not improve. All other review of systems reviewed and negative except as stated. Timing/Duration: week, getting worse Severity: moderate Location: extremities (Left rod) Associated Symptoms: rash Allergies and Home Medications Allergies Coded Allergies: oxaliplatin (Verified Allergy, Intermediate, 07/31/20) Penicillins (Unverified Allergy, Unknown, 01/01/16) Patient Home Medication List Home Medication List Reviewed: Yes Aspirin (Aspir 81) 81 Mg Tablet.dr, 81 MG PO DAILY, (Reported) Entered as Reported by: TWAN MARQUEZ on 03/10/19 1423 Doxycycline Hyclate (Doxycycline Hyclate) 100 Mg Tablet, 100 MG PO BID Prescribed by: BARRY COELHO on 11/15/21 1752 Hydrocodone/Acetaminophen (Hydrocodone-Acetamin 5-325 mg) 1 Each Tablet, 1 TAB PO Q6H PRN for PAIN-MODERATE (5-7) Prescribed by: BARRY COELHO on 03/04/211751 Mupirocin (Mupirocin) 22 Gm Oint...g., 22 GM TP BID Prescribed by: BARRY COELHO on 03/04/211751 Review of Systems Review of Systems Constitutional: see HPI EENTM: no symptoms reported Respiratory: no symptoms reported Cardiovascular: no symptoms reported Gastrointestinal: no symptoms reported Genitourinary: no symptoms reported Musculoskeletal: other (Pain to the left lower leg) Skin: other (Large abscess left lower leg) Psychiatric/Neurological: No Symptoms Reported All Other Systems Reviewed Negative Unless Noted: Yes Past Qtwfyje-Dtakgz-Tntfjx Hx Patient Social History Tobacco Use?: No Substance use?: Yes Substance type: Marijuana Substance frequency: Daily Alcohol Use?: No Pt feels they are or have been: No Immunizations Up To Date Tetanus Booster (TDap): Unknown Influenza Vaccine Up-to-Date: No; Not Current Seasonal Allergies Seasonal Allergies: No Past Medical History Surgeries: Yes (CONDYLOMAS REMOVED FROM THE THROAT, J-tube, port and removed) Orthopedic, Tonsillectomy Respiratory: No Currently Using CPAP: No Currently Using BIPAP: No Cardiac: Yes Hypertension Neurological: Yes (MEMORY DEFICITS) Concussion, Traumatic Brain Injury Reproductive Disorders: No Sexually Transmitted Disease: No Genitourinary: No Gastrointestinal: Yes (esophagus ca) Musculoskeletal: Yes Back Injury, Chronic Back Pain Endocrine: Yes (diabetes prior to wt loss) Diabetes, 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) Loss of Vision: Bilateral Hearing Impairment: Denies Cancer: Yes Esophageal What Type of Treatment Did You: Chemotherapy, Radiation Psychosocial: Yes Anxiety Integumentary: No Blood Disorders: No Family Medical History No Pertinent Family Hx Physical Exam Vital Signs Vital Signs - First Documented 03/04/21 16:50 Temp 36.7 Pulse 77 Resp 18 B/P (MAP) 142/92 (109) Pulse Ox 96 O2 Delivery Room Air Capillary Refill : Less Than 3 Seconds General Appearance: WD/WN, no apparent distress Neck: normal inspection Cardiovascular: regular rate, rhythm Respiratory: lungs clear, normal breath sounds, no respiratory distress, no accessory muscle use Gastrointestinal: normal bowel sounds, non tender, soft Extremities: normal range of motion, inflammation (Left lower leg) Neurologic/Psychiatric: alert, normal mood/affect, oriented x 3 Skin: normal color, warm/dry, other (Patient has an abscess to the mid left rod, central fluctuance of approximately 2 cm with significant surrounding erythema. Very tender to palpation.) Skin Problem Location: lower extremities Skin Problem Character: abscess, erythema Procedures/Interventions I&D : Site: left leg Blade Size: 11 I & D Procedure: betadine prep Packing/Drain: Plain Packing 1/2 (plain 1/4 in) Progress wound opened with an 11 blade. Copious amounts of bloody purulent drainage. Irrigated copiously.. Packed with 1/4' gauze. dressed with dry gauze dressing. Progress/Results/Core Measures Results/Orders My Orders Orders - BARRY COELHO MD Wound Culture (03/04/21 17:24) Lidocaine 1% Inj 20 Ml (Xylocaine 1% Inj (03/04/21 17:30) Hydrocodone/Apap 5/325 Tablet (Lortab 5 (03/04/21 17:45) Medications Given in ED Current Medications Medications Dose Ordered Sig/Jia Route Start Time Stop Time Status Last Admin Dose Admin Acetaminophen/ Hydrocodone Bitart 1 ea ONCE ONCE PO 03/04/21 17:45 03/04/21 17:46 DC 03/04/21 17:43 1 EA Lidocaine HCl 20 ml ONCE ONCE INJ 03/04/21 17:30 03/04/21 17:31 DC 03/04/21 17:44 20 ML Vital Signs/I&O 03/04/21 16:50 Temp 36.7 Pulse 77 Resp 18 B/P (MAP) 142/92 (109) Pulse Ox 96 O2 Delivery Room Air Blood Pressure Mean: 109 Progress Progress Note : Time: 17:57 Progress Note Patient tolerated I&D very well. Given doxycycline (as family member insists this is the only thing that helps). Pain meds and mupirocin ointment. I did review the patient's previous MRSA screens - they have all been negative. He has not ever had an abscess culture done at this facility that I can find. Patient is instructed to follow up with Dr Humphreys and Dr Luu. Packing removal in 2-3 days (). return precautions given. Departure Impression Primary Impression: Abscess Additional Impression: Cellulitis Disposition: 01 HOME, SELF-CARE Condition: Stable Departure-Patient Inst. Decision time for Depature: 17:49 Referrals: SUSHMA LUU HOLLY R MD (PCP/Family) Primary Care Physician Patient Instructions: Abscess Incision and Drainage Add. Discharge Instructions: Keep the area clean dry and covered. You may wash gently with soap and water. The packing will need to come out morning. It may need to be repacked. You can follow-up with Dr. Luu to do this. Antibiotics twice a day for 10 days. Mupirocin ointment to the bilateral naris twice a day for 5 days. Pain medications every 6 hours as needed. You can supplement with tekw-hyy-adzirwh ibuprofen as needed. If you develop further swelling, increased redness, fever please come back to the emergency room for reevaluation. Scripts Hydrocodone/Acetaminophen (Hydrocodone-Acetamin 5-325 mg) 1 Each Tablet 1 TAB PO Q6H PRN for PAIN-MODERATE (5-7), #12 TAB Prov: BARRY COELHO MD 03/04/21 Mupirocin (Mupirocin) 22 Gm Oint...g. 22 GM TP BID, #22 EA apply a small amount to each nostril twice a day for 5 days Prov: BARRY COELHO MD 03/04/21 Doxycycline Hyclate (Doxycycline Hyclate) 100 Mg Tablet 100 MG PO BID, #20 TAB 0 Refills Prov: BARRY COELHO MD 03/04/21 Copy Copies To 1: VALDEZ HUMPHREYS MD, KATHRYN M MD Mar 04, 2021 17:24
[2021-03-04] MEDS ORDERED: LIDOCAINE 1% INJ 20 ML 20 ML VIAL INJ ONE (17:30)
[2021-03-04] MEDS ORDERED: HYDROcodone/APAP 5 MG/325 MG (LORTAB) TAB PO ONE (17:45)
[2021-03-04] MEDS ORDERED: MUPI22OI2 TP (17:52)
[2021-03-04] MEDS ORDERED: ACHD5005 PO (17:52)
[2021-03-04] MEDS ORDERED: DOXY100T2 PO (17:52)
[2021-03-04 18:00] VITALS: BP 115/77
== END 2021-03-04 18:01 | disposition home or self-care (01) ==
LOC: EDUNIT# 16:42 → ER 16:43
DX: L02.416 Cutaneous abscess of left lower limb (principal); L03.116 Cellulitis of left lower limb; I10 Essential (primary) hypertension; E11.9 Type 2 diabetes mellitus without complications; G89.29 Other chronic pain; M54.9 Dorsalgia, unspecified; Z87.820 Personal history of traumatic brain injury; Z79.82 Long term (current) use of aspirin
CPT/HCPCS: 87070; 87077; 87186; 87205; 99283

== ENCOUNTER → 2021-03-21 | Outpatient (CLI) | payer MEDICAID ==
[~2021-03-21] MED LIST changes: +ACHD5005 PO; +DOXY100T2 PO; +MUPI22OI2 TP
== END ==
LOC: CARD 10:00
PROVIDERS: ATTEND Internal Medicine Hematology & Oncology
DX: I08.0 Rheumatic disorders of both mitral and aortic valves (principal); I87.2 Venous insufficiency (chronic) (peripheral)
CPT/HCPCS: 93306

== ENCOUNTER 2021-04-01 09:03 | Outpatient (RCR) | payer MEDICAID ==
[2021-03-18 09:25] LABS: BASOPHILS % (AUTO) 1 % (0-10); EOSINOPHILS # (AUTO) 0.2 10^3/uL (0.0-0.3); EOSINOPHILS % (AUTO) 4 % (0-10); HEMATOCRIT 45 % (40-54); HEMOGLOBIN 15.3 g/dL (13.3-17.7); LYMPHOCYTES # (AUTO) 0.7 10^3/uL (1.0-4.0); LYMPHOCYTES % (AUTO) 15 % (12-44); MEAN CORPUSCULAR HEMOGLOBIN 33 pg (25-34); MEAN CORPUSCULAR HGB CONC 34 g/dL (32-36); MEAN CORPUSCULAR VOLUME 98 fL (80-99); MONOCYTES # (AUTO) 0.5 10^3/uL (0.0-1.0); MONOCYTES % (AUTO) 11 % (0-12); NEUTROPHILS # (AUTO) 3.4 10^3/uL (1.8-7.8); NEUTROPHILS % (AUTO) 70 % (42-75); PLATELET COUNT 257 10^3/uL (130-400); WHITE BLOOD COUNT 4.8 10^3/uL (4.3-11.0)
[2021-03-18 09:41] LABS: ALBUMIN 3.9 GM/DL (3.2-4.5); BILIRUBIN,TOTAL 0.5 MG/DL (0.1-1.0); CALCIUM 8.6 MG/DL (8.5-10.1); CREATININE SERUM 0.81 MG/DL (0.60-1.30); POTASSIUM 4.1 MMOL/L (3.6-5.0)
[~2021-04-01 09:03] MED LIST changes: +NS IV 1000 ML (CANCER CTR) 1,000 ML IV SCH; +NS IV SCH; +TRASTUZUMAB PKRB IV SCH
[2021-04-01 09:23] LABS: BASOPHILS # (AUTO) 0.1 10^3/uL (0.0-0.1); BASOPHILS % (AUTO) 1 % (0-10); EOSINOPHILS # (AUTO) 0.2 10^3/uL (0.0-0.3); EOSINOPHILS % (AUTO) 5 % (0-10); HEMATOCRIT 45 % (40-54); HEMOGLOBIN 15.5 g/dL (13.3-17.7); LYMPHOCYTES # (AUTO) 0.8 10^3/uL (1.0-4.0); LYMPHOCYTES % (AUTO) 18 % (12-44); MEAN CORPUSCULAR HEMOGLOBIN 33 pg (25-34); MEAN CORPUSCULAR HGB CONC 34 g/dL (32-36); MEAN CORPUSCULAR VOLUME 96 fL (80-99); MONOCYTES # (AUTO) 0.5 10^3/uL (0.0-1.0); MONOCYTES % (AUTO) 11 % (0-12); NEUTROPHILS # (AUTO) 2.8 10^3/uL (1.8-7.8); NEUTROPHILS % (AUTO) 64 % (42-75); PLATELET COUNT 198 10^3/uL (130-400); WHITE BLOOD COUNT 4.4 10^3/uL (4.3-11.0)
[2021-04-01 09:40] LABS: BILIRUBIN,TOTAL 0.5 MG/DL (0.1-1.0); CALCIUM 8.7 MG/DL (8.5-10.1); CREATININE SERUM 0.95 MG/DL (0.60-1.30); POTASSIUM 3.7 MMOL/L (3.6-5.0); TOTAL PROTEIN 6.8 GM/DL (6.4-8.2)
== END 2021-04-19 | disposition home or self-care (01) ==
LOC: ONC 09:03
PROVIDERS: ATTEND Internal Medicine Hematology & Oncology
DX: Z51.11 Encounter for antineoplastic chemotherapy (principal); Z45.2 Encounter for adjustment and management of vascular access device; C15.5 Malignant neoplasm of lower third of esophagus; I10 Essential (primary) hypertension; E11.9 Type 2 diabetes mellitus without complications; E66.9 Obesity, unspecified
CPT/HCPCS: 36591; 80053; 85025; 96413; 99213

== ENCOUNTER 2021-05-13 09:28 | Outpatient (RCR) | payer MEDICAID ==
[~2021-05-13 09:28] MED LIST changes: -NS IV 1000 ML (CANCER CTR) 1,000 ML IV SCH; -NS IV SCH; -TRASTUZUMAB PKRB IV SCH
[2021-05-13] MEDS ORDERED: NS IV SCH (10:07)
[2021-05-13] MEDS ORDERED: NS IV 1000 ML (CANCER CTR) 1,000 ML IV SCH (10:07)
[2021-05-13] MEDS ORDERED: TRASTUZUMAB PKRB IV SCH (10:07)
[2021-05-13] MEDS ORDERED: NS (IVPB) CANCER CENTER 250 ML ONE (10:26)
[2021-05-13 10:27] LABS: BASOPHILS # (AUTO) 0.1 10^3/uL (0.0-0.1); BASOPHILS % (AUTO) 1 % (0-10); EOSINOPHILS # (AUTO) 0.2 10^3/uL (0.0-0.3); EOSINOPHILS % (AUTO) 3 % (0-10); HEMATOCRIT 45 % (40-54); HEMOGLOBIN 15.5 g/dL (13.3-17.7); LYMPHOCYTES # (AUTO) 0.8 10^3/uL (1.0-4.0); LYMPHOCYTES % (AUTO) 16 % (12-44); MEAN CORPUSCULAR HEMOGLOBIN 32 pg (25-34); MEAN CORPUSCULAR HGB CONC 34 g/dL (32-36); MEAN CORPUSCULAR VOLUME 94 fL (80-99); MEAN PLATELET VOLUME 9.7 fL (9.0-12.2); MONOCYTES # (AUTO) 0.5 10^3/uL (0.0-1.0); MONOCYTES % (AUTO) 10 % (0-12); NEUTROPHILS # (AUTO) 3.8 10^3/uL (1.8-7.8); NEUTROPHILS % (AUTO) 70 % (42-75); PLATELET COUNT 247 10^3/uL (130-400); WHITE BLOOD COUNT 5.4 10^3/uL (4.3-11.0)
[2021-05-13 10:51] LABS: ALBUMIN 3.9 GM/DL (3.2-4.5); BILIRUBIN,TOTAL 0.4 MG/DL (0.1-1.0); CREATININE SERUM 0.77 MG/DL (0.60-1.30); POTASSIUM 3.9 MMOL/L (3.6-5.0); TOTAL PROTEIN 7.1 GM/DL (6.4-8.2)
== END 2021-05-20 | disposition home or self-care (01) ==
LOC: ONC 09:28
PROVIDERS: ATTEND Internal Medicine Hematology & Oncology
DX: Z51.11 Encounter for antineoplastic chemotherapy (principal); Z45.2 Encounter for adjustment and management of vascular access device; C15.5 Malignant neoplasm of lower third of esophagus; I10 Essential (primary) hypertension; E11.9 Type 2 diabetes mellitus without complications; E66.9 Obesity, unspecified; Z92.21 Personal history of antineoplastic chemotherapy
CPT/HCPCS: 36591; 80053; 85025; 96413; 99213

== ENCOUNTER → 2021-06-03 | Outpatient (CLI) | payer MEDICAID ==
[~2021-06-03] MED LIST changes: +HOLD METFORMIN - RECEIVED CONTRAST 20 ML VIAL IV SCH; +IOHEXOL 350 MG/ML 100 ML (OMNIPAQUE 350) VIAL IV ONE; +NS 100 ML (IVPB) BAG IV ONE
--- NOTE | 2021-06-03 12:25 | Diagnostic Imaging Report ---
EXAMINATION: CT chest and abdomen with intravenous contrast. TECHNIQUE: Multiple contiguous axial images were obtained through the chest and abdomen after the uneventful administration of intravenous contrast. All CT scans use one or more of the following dose optimizing techniques: automated exposure control, MA and/or KvP adjustment based on patient size and exam type or iterative reconstruction. HISTORY: Esophageal cancer. COMPARISON: 07/03/2020. FINDINGS: There is no edema or pneumonia. No pleural effusion. No pneumothorax. No suspicious nodules. There is mild scarring in the right paramediastinal region and right lung base. There is no axillary or supraclavicular lymphadenopathy. There is no mediastinal lymphadenopathy. There is a right-sided port catheter. There has been an esophagectomy and gastric pull-through. Heart size is normal. There are mild coronary artery calcifications. No pericardial effusion. Aorta is normal in caliber. There is a hiatal hernia containing portions of the colon. The liver is normal without focal lesion. There is no biliary ductal dilation. Gallbladder is normal. Pancreas is normal. Spleen is normal. Adrenal glands are normal. There is an unchanged to small to characterize lesion in the left kidney, presumably a cyst. There is no hydronephrosis. Visualized bowel is normal in caliber without obstruction or inflammation. No free fluid or air. No abdominal lymphadenopathy. Aorta is normal in caliber without aneurysm. There are no suspicious osseus lesions. IMPRESSION: Post surgical changes of esophagectomy and gastric pull-through without evidence for local recurrence or metastatic disease. Dictated by: Dictated on workstation # [id number]
== END ==
LOC: RAD 10:15
PROVIDERS: ATTEND Internal Medicine Hematology & Oncology
DX: C15.5 Malignant neoplasm of lower third of esophagus (principal)
CPT/HCPCS: 71260; 74160

== ENCOUNTER 2021-06-14 10:46 | Outpatient (RCR) | payer MEDICAID ==
[2021-05-30 10:12] LABS: BASOPHILS # (AUTO) 0.1 10^3/uL (0.0-0.1); BASOPHILS % (AUTO) 1 % (0-10); EOSINOPHILS # (AUTO) 0.2 10^3/uL (0.0-0.3); EOSINOPHILS % (AUTO) 3 % (0-10); HEMATOCRIT 42 % (40-54); HEMOGLOBIN 14.5 g/dL (13.3-17.7); LYMPHOCYTES # (AUTO) 0.8 10^3/uL (1.0-4.0); LYMPHOCYTES % (AUTO) 15 % (12-44); MEAN CORPUSCULAR HEMOGLOBIN 33 pg (25-34); MEAN CORPUSCULAR HGB CONC 34 g/dL (32-36); MEAN CORPUSCULAR VOLUME 95 fL (80-99); MONOCYTES # (AUTO) 0.5 10^3/uL (0.0-1.0); MONOCYTES % (AUTO) 9 % (0-12); NEUTROPHILS # (AUTO) 4.1 10^3/uL (1.8-7.8); NEUTROPHILS % (AUTO) 72 % (42-75); PLATELET COUNT 177 10^3/uL (130-400); WHITE BLOOD COUNT 5.7 10^3/uL (4.3-11.0)
[2021-05-30 10:32] LABS: ALBUMIN 3.5 GM/DL (3.2-4.5); BILIRUBIN,TOTAL 0.6 MG/DL (0.1-1.0); CALCIUM 7.8 MG/DL (8.5-10.1); CREATININE SERUM 0.72 MG/DL (0.60-1.30); POTASSIUM 3.5 MMOL/L (3.6-5.0); TOTAL PROTEIN 6.4 GM/DL (6.4-8.2)
[~2021-06-14 10:46] MED LIST changes: -HOLD METFORMIN - RECEIVED CONTRAST 20 ML VIAL IV SCH; -IOHEXOL 350 MG/ML 100 ML (OMNIPAQUE 350) VIAL IV ONE; -NS 100 ML (IVPB) BAG IV ONE; +NS IV 1000 ML (CANCER CTR) 1,000 ML IV SCH; +NS IV 500 ML (CANCER CENTER) 500 ML IV SCH; +NS IV SCH; +TRASTUZUMAB PKRB IV SCH
[2021-06-14 11:40] LABS: BASOPHILS # (AUTO) 0.1 10^3/uL (0.0-0.1); BASOPHILS % (AUTO) 1 % (0-10); EOSINOPHILS # (AUTO) 0.2 10^3/uL (0.0-0.3); EOSINOPHILS % (AUTO) 5 % (0-10); HEMATOCRIT 47 % (40-54); LYMPHOCYTES % (AUTO) 19 % (12-44); MEAN CORPUSCULAR HEMOGLOBIN 32 pg (25-34); MEAN CORPUSCULAR HGB CONC 34 g/dL (32-36); MEAN CORPUSCULAR VOLUME 94 fL (80-99); MEAN PLATELET VOLUME 10.4 fL (9.0-12.2); MONOCYTES # (AUTO) 0.5 10^3/uL (0.0-1.0); MONOCYTES % (AUTO) 10 % (0-12); NEUTROPHILS # (AUTO) 3.3 10^3/uL (1.8-7.8); NEUTROPHILS % (AUTO) 65 % (42-75); PLATELET COUNT 199 10^3/uL (130-400); WHITE BLOOD COUNT 5.1 10^3/uL (4.3-11.0)
[2021-06-14 11:52] LABS: LYMPHOCYTES % (MANUAL) 20 %; NEUTROPHILS % (MANUAL) 63 %
[2021-06-14 11:53] LABS: EOSINOPHILS % (MANUAL) 8 %; MONOCYTES % (MANUAL) 9 %; RBC MORPH NORMAL
[2021-06-14 11:58] LABS: ALBUMIN 4.3 GM/DL (3.2-4.5); BILIRUBIN,TOTAL 0.5 MG/DL (0.1-1.0); CREATININE SERUM 0.88 MG/DL (0.60-1.30); POTASSIUM 3.9 MMOL/L (3.6-5.0); TOTAL PROTEIN 7.2 GM/DL (6.4-8.2)
== END 2021-06-17 | disposition home or self-care (01) ==
LOC: ONC 10:46
PROVIDERS: ATTEND Internal Medicine Hematology & Oncology
DX: Z51.11 Encounter for antineoplastic chemotherapy (principal); C15.5 Malignant neoplasm of lower third of esophagus; I10 Essential (primary) hypertension; E11.9 Type 2 diabetes mellitus without complications; E66.9 Obesity, unspecified; Z92.21 Personal history of antineoplastic chemotherapy; Z98.890 Other specified postprocedural states
CPT/HCPCS: 80053; 85007; 85025; 85027; 96413

== ENCOUNTER → 2021-07-08 | Outpatient (CLI) | payer MEDICAID ==
[~2021-07-08] MED LIST changes: -NS IV 1000 ML (CANCER CTR) 1,000 ML IV SCH; -NS IV 500 ML (CANCER CENTER) 500 ML IV SCH; -NS IV SCH; -TRASTUZUMAB PKRB IV SCH
== END ==
LOC: CARD 11:00
PROVIDERS: ATTEND Internal Medicine Hematology & Oncology
DX: I35.1 Nonrheumatic aortic (valve) insufficiency (principal); I51.7 Cardiomegaly; Z85.01 Personal history of malignant neoplasm of esophagus; Z92.21 Personal history of antineoplastic chemotherapy
CPT/HCPCS: 93306

== ENCOUNTER 2021-07-12 09:43 | Outpatient (RCR) | payer MEDICAID ==
[2021-06-27 14:15] LABS: BASOPHILS # (AUTO) 0.1 10^3/uL (0.0-0.1); BASOPHILS % (AUTO) 1 % (0-10); EOSINOPHILS # (AUTO) 0.3 10^3/uL (0.0-0.3); EOSINOPHILS % (AUTO) 6 % (0-10); HEMATOCRIT 44 % (40-54); HEMOGLOBIN 15.2 g/dL (13.3-17.7); LYMPHOCYTES # (AUTO) 0.9 10^3/uL (1.0-4.0); LYMPHOCYTES % (AUTO) 19 % (12-44); MEAN CORPUSCULAR HEMOGLOBIN 33 pg (25-34); MEAN CORPUSCULAR HGB CONC 35 g/dL (32-36); MEAN CORPUSCULAR VOLUME 94 fL (80-99); MEAN PLATELET VOLUME 10.7 fL (9.0-12.2); MONOCYTES # (AUTO) 0.4 10^3/uL (0.0-1.0); MONOCYTES % (AUTO) 10 % (0-12); NEUTROPHILS # (AUTO) 2.9 10^3/uL (1.8-7.8); NEUTROPHILS % (AUTO) 64 % (42-75); PLATELET COUNT 174 10^3/uL (130-400); WHITE BLOOD COUNT 4.6 10^3/uL (4.3-11.0)
[2021-06-27 14:35] LABS: ALBUMIN 3.9 GM/DL (3.2-4.5); BILIRUBIN,TOTAL 0.5 MG/DL (0.1-1.0); CALCIUM 8.5 MG/DL (8.5-10.1); CREATININE SERUM 0.73 MG/DL (0.60-1.30); POTASSIUM 3.7 MMOL/L (3.6-5.0); TOTAL PROTEIN 6.6 GM/DL (6.4-8.2)
[~2021-07-12 09:43] MED LIST changes: +NS IV 500 ML (CANCER CENTER) 500 ML IV SCH; +NS IV SCH; +TRASTUZUMAB PKRB IV SCH
[2021-07-12 10:17] LABS: BASOPHILS % (AUTO) 1 % (0-10); EOSINOPHILS # (AUTO) 0.3 10^3/uL (0.0-0.3); EOSINOPHILS % (AUTO) 6 % (0-10); HEMATOCRIT 45 % (40-54); HEMOGLOBIN 15.6 g/dL (13.3-17.7); LYMPHOCYTES % (AUTO) 23 % (12-44); MEAN CORPUSCULAR HEMOGLOBIN 33 pg (25-34); MEAN CORPUSCULAR HGB CONC 35 g/dL (32-36); MEAN CORPUSCULAR VOLUME 94 fL (80-99); MONOCYTES # (AUTO) 0.5 10^3/uL (0.0-1.0); MONOCYTES % (AUTO) 10 % (0-12); NEUTROPHILS # (AUTO) 2.7 10^3/uL (1.8-7.8); NEUTROPHILS % (AUTO) 60 % (42-75); PLATELET COUNT 189 10^3/uL (130-400); WHITE BLOOD COUNT 4.5 10^3/uL (4.3-11.0)
[2021-07-12 10:36] LABS: ALBUMIN 2.1 GM/DL (3.2-4.5); BILIRUBIN,TOTAL 0.3 MG/DL (0.1-1.0); CREATININE SERUM 0.46 MG/DL (0.60-1.30); TOTAL PROTEIN 3.4 GM/DL (6.4-8.2)
[2021-07-12 10:56] LABS: CALCIUM 4.7 MG/DL (8.5-10.1)
== END 2021-07-18 | disposition home or self-care (01) ==
LOC: ONC 09:43
PROVIDERS: ATTEND Internal Medicine Hematology & Oncology
DX: Z51.11 Encounter for antineoplastic chemotherapy (principal); C15.5 Malignant neoplasm of lower third of esophagus; I10 Essential (primary) hypertension; E11.9 Type 2 diabetes mellitus without complications; E66.9 Obesity, unspecified; Z92.21 Personal history of antineoplastic chemotherapy; Z98.890 Other specified postprocedural states
CPT/HCPCS: 36591; 80053; 85025; 96413

== ENCOUNTER 2021-08-08 13:48 | Outpatient (RCR) | payer MEDICAID ==
[2021-07-25 10:28] LABS: BASOPHILS # (AUTO) 0.1 10^3/uL (0.0-0.1); HEMOGLOBIN 15.4 g/dL (13.3-17.7)
[2021-07-25 10:30] LABS: BASOPHILS % (AUTO) 1 % (0-10); EOSINOPHILS # (AUTO) 0.2 10^3/uL (0.0-0.3); EOSINOPHILS % (AUTO) 4 % (0-10); HEMATOCRIT 44 % (40-54); LYMPHOCYTES # (AUTO) 0.9 10^3/uL (1.0-4.0); LYMPHOCYTES % (AUTO) 20 % (12-44); MEAN CORPUSCULAR HEMOGLOBIN 33 pg (25-34); MEAN CORPUSCULAR HGB CONC 35 g/dL (32-36); MEAN CORPUSCULAR VOLUME 95 fL (80-99); MONOCYTES # (AUTO) 0.4 10^3/uL (0.0-1.0); MONOCYTES % (AUTO) 10 % (0-12); NEUTROPHILS # (AUTO) 2.9 10^3/uL (1.8-7.8); NEUTROPHILS % (AUTO) 65 % (42-75); WHITE BLOOD COUNT 4.4 10^3/uL (4.3-11.0)
[2021-07-25 10:50] LABS: ALBUMIN 3.4 GM/DL (3.2-4.5); BILIRUBIN,TOTAL 0.5 MG/DL (0.1-1.0); CALCIUM 7.4 MG/DL (8.5-10.1); CREATININE SERUM 0.63 MG/DL (0.60-1.30); POTASSIUM 3.2 MMOL/L (3.6-5.0); TOTAL PROTEIN 5.7 GM/DL (6.4-8.2)
[2021-07-25 11:13] LABS: PLATELET COUNT 103 10^3/uL (130-400); SMEAR SCAN COMMENT YES
[~2021-08-08] VITALS: Ht 190.5 cm; Wt 95.7 kg
[~2021-08-08 13:48] MED LIST changes: +HEParin (CENTRAL IV FLUSH) 500 UNIT/5 ML SYR IV PRN; -NS IV 500 ML (CANCER CENTER) 500 ML IV SCH; +NS IV 500 ML (CANCER CENTER) IV SCH
[2021-08-08 14:07] LABS: HEMOGLOBIN 16.3 g/dL (13.3-17.7); MEAN CORPUSCULAR HEMOGLOBIN 33 pg (25-34)
[2021-08-08 14:09] LABS: BASOPHILS # (AUTO) 0.1 10^3/uL (0.0-0.1); BASOPHILS % (AUTO) 2 % (0-10); EOSINOPHILS # (AUTO) 0.2 10^3/uL (0.0-0.3); EOSINOPHILS % (AUTO) 5 % (0-10); HEMATOCRIT 47 % (40-54); LYMPHOCYTES # (AUTO) 0.8 10^3/uL (1.0-4.0); LYMPHOCYTES % (AUTO) 17 % (12-44); MEAN CORPUSCULAR HGB CONC 34 g/dL (32-36); MEAN CORPUSCULAR VOLUME 96 fL (80-99); MEAN PLATELET VOLUME 10.6 fL (9.0-12.2); MONOCYTES # (AUTO) 0.5 10^3/uL (0.0-1.0); MONOCYTES % (AUTO) 10 % (0-12); NEUTROPHILS # (AUTO) 3.3 10^3/uL (1.8-7.8); NEUTROPHILS % (AUTO) 67 % (42-75); PLATELET COUNT 183 10^3/uL (130-400)
[2021-08-08 14:27] LABS: ALBUMIN 4.2 GM/DL (3.2-4.5); BILIRUBIN,TOTAL 0.6 MG/DL (0.1-1.0); CALCIUM 8.9 MG/DL (8.5-10.1); CREATININE SERUM 0.83 MG/DL (0.60-1.30); POTASSIUM 4.2 MMOL/L (3.6-5.0); TOTAL PROTEIN 7.1 GM/DL (6.4-8.2)
[2021-08-08] MEDS ORDERED: NS (IVPB) 250 ML ONE (14:41)
== END 2021-08-17 | disposition home or self-care (01) ==
LOC: ONC 13:48
PROVIDERS: ATTEND Internal Medicine Hematology & Oncology
DX: Z51.11 Encounter for antineoplastic chemotherapy (principal); Z45.2 Encounter for adjustment and management of vascular access device; C15.5 Malignant neoplasm of lower third of esophagus; I10 Essential (primary) hypertension; E11.9 Type 2 diabetes mellitus without complications; E66.9 Obesity, unspecified; Z98.890 Other specified postprocedural states
CPT/HCPCS: 36591; 80053; 85025; 96413; 99213

== ENCOUNTER 2021-09-05 09:53 | Outpatient (RCR) | payer MEDICAID ==
[2021-08-22 10:53] LABS: HEMOGLOBIN 15.7 g/dL (13.3-17.7)
[2021-08-22 10:55] LABS: BASOPHILS # (AUTO) 0.1 10^3/uL (0.0-0.1); BASOPHILS % (AUTO) 1 % (0-10); EOSINOPHILS # (AUTO) 0.2 10^3/uL (0.0-0.3); EOSINOPHILS % (AUTO) 4 % (0-10); HEMATOCRIT 46 % (40-54); LYMPHOCYTES # (AUTO) 0.9 10^3/uL (1.0-4.0); LYMPHOCYTES % (AUTO) 14 % (12-44); MEAN CORPUSCULAR HEMOGLOBIN 33 pg (25-34); MEAN CORPUSCULAR HGB CONC 34 g/dL (32-36); MEAN CORPUSCULAR VOLUME 98 fL (80-99); MEAN PLATELET VOLUME 10.8 fL (9.0-12.2); MONOCYTES # (AUTO) 0.6 10^3/uL (0.0-1.0); MONOCYTES % (AUTO) 9 % (0-12); NEUTROPHILS # (AUTO) 4.5 10^3/uL (1.8-7.8); NEUTROPHILS % (AUTO) 73 % (42-75); PLATELET COUNT 89 10^3/uL (130-400); WHITE BLOOD COUNT 6.2 10^3/uL (4.3-11.0)
[2021-08-22 11:12] LABS: ALBUMIN 4.2 GM/DL (3.2-4.5); BILIRUBIN,TOTAL 0.5 MG/DL (0.1-1.0); CREATININE SERUM 0.87 MG/DL (0.60-1.30); POTASSIUM 4.4 MMOL/L (3.6-5.0); TOTAL PROTEIN 6.9 GM/DL (6.4-8.2)
[2021-08-22 11:25] LABS: BASOPHILS # (AUTO) 0.1 10^3/uL (0.0-0.1); BASOPHILS % (AUTO) 1 % (0-10); EOSINOPHILS # (AUTO) 0.2 10^3/uL (0.0-0.3); EOSINOPHILS % (AUTO) 4 % (0-10); HEMATOCRIT 47 % (40-54); HEMOGLOBIN 15.5 g/dL (13.3-17.7); LYMPHOCYTES # (AUTO) 0.7 10^3/uL (1.0-4.0); LYMPHOCYTES % (AUTO) 13 % (12-44); MEAN CORPUSCULAR HEMOGLOBIN 33 pg (25-34); MEAN CORPUSCULAR HGB CONC 33 g/dL (32-36); MEAN CORPUSCULAR VOLUME 100 fL (80-99); MEAN PLATELET VOLUME 10.5 fL (9.0-12.2); MONOCYTES # (AUTO) 0.5 10^3/uL (0.0-1.0); MONOCYTES % (AUTO) 9 % (0-12); NEUTROPHILS # (AUTO) 4.1 10^3/uL (1.8-7.8); NEUTROPHILS % (AUTO) 73 % (42-75); PLATELET COUNT 165 10^3/uL (130-400); WHITE BLOOD COUNT 5.6 10^3/uL (4.3-11.0)
[~2021-09-05 09:53] MED LIST changes: +NS (IVPB) 250 ML IV SCH; -NS IV 500 ML (CANCER CENTER) IV SCH
[2021-09-05 10:11] LABS: BASOPHILS # (AUTO) 0.1 10^3/uL (0.0-0.1); BASOPHILS % (AUTO) 1 % (0-10); EOSINOPHILS # (AUTO) 0.3 10^3/uL (0.0-0.3); EOSINOPHILS % (AUTO) 6 % (0-10); HEMATOCRIT 47 % (40-54); LYMPHOCYTES # (AUTO) 0.7 10^3/uL (1.0-4.0); LYMPHOCYTES % (AUTO) 16 % (12-44); MEAN CORPUSCULAR HEMOGLOBIN 33 pg (25-34); MEAN CORPUSCULAR HGB CONC 34 g/dL (32-36); MEAN CORPUSCULAR VOLUME 95 fL (80-99); MEAN PLATELET VOLUME 10.4 fL (9.0-12.2); MONOCYTES # (AUTO) 0.5 10^3/uL (0.0-1.0); MONOCYTES % (AUTO) 10 % (0-12); NEUTROPHILS % (AUTO) 66 % (42-75); PLATELET COUNT 176 10^3/uL (130-400); WHITE BLOOD COUNT 4.4 10^3/uL (4.3-11.0)
[2021-09-05 10:32] LABS: ALBUMIN 4.4 GM/DL (3.2-4.5); BILIRUBIN,TOTAL 0.8 MG/DL (0.1-1.0); CREATININE SERUM 0.82 MG/DL (0.60-1.30); POTASSIUM 3.9 MMOL/L (3.6-5.0); TOTAL PROTEIN 7.1 GM/DL (6.4-8.2)
[2021-09-19 10:31] LABS: BASOPHILS % (AUTO) 1 % (0-10); EOSINOPHILS # (AUTO) 0.2 10^3/uL (0.0-0.3); EOSINOPHILS % (AUTO) 3 % (0-10); HEMATOCRIT 46 % (40-54); LYMPHOCYTES # (AUTO) 0.7 10^3/uL (1.0-4.0); LYMPHOCYTES % (AUTO) 12 % (12-44); MEAN CORPUSCULAR HEMOGLOBIN 33 pg (25-34); MEAN CORPUSCULAR HGB CONC 35 g/dL (32-36); MEAN CORPUSCULAR VOLUME 95 fL (80-99); MEAN PLATELET VOLUME 10.6 fL (9.0-12.2); MONOCYTES # (AUTO) 0.5 10^3/uL (0.0-1.0); MONOCYTES % (AUTO) 10 % (0-12); NEUTROPHILS % (AUTO) 74 % (42-75); PLATELET COUNT 156 10^3/uL (130-400); WHITE BLOOD COUNT 5.4 10^3/uL (4.3-11.0)
[2021-09-19 11:06] LABS: ALBUMIN 4.3 GM/DL (3.2-4.5); BILIRUBIN,TOTAL 0.6 MG/DL (0.1-1.0); CALCIUM 8.9 MG/DL (8.5-10.1); POTASSIUM 3.9 MMOL/L (3.6-5.0); TOTAL PROTEIN 7.1 GM/DL (6.4-8.2)
[2021-09-19 11:07] LABS: CREATININE SERUM 0.81 MG/DL (0.60-1.30)
== END 2021-09-17 | disposition home or self-care (01) ==
LOC: ONC 09:53
PROVIDERS: ATTEND Internal Medicine Hematology & Oncology
DX: Z51.11 Encounter for antineoplastic chemotherapy (principal); C15.5 Malignant neoplasm of lower third of esophagus; I10 Essential (primary) hypertension; E11.9 Type 2 diabetes mellitus without complications; E66.9 Obesity, unspecified; Z98.890 Other specified postprocedural states
CPT/HCPCS: 36415; 36591; 80053; 85025; 96413; 99213

== ENCOUNTER 2021-10-02 11:36 | Outpatient (RCR) | payer MEDICAID ==
[2021-09-19 10:31] LABS: BASOPHILS % (AUTO) 1 % (0-10); EOSINOPHILS # (AUTO) 0.2 10^3/uL (0.0-0.3); EOSINOPHILS % (AUTO) 3 % (0-10); HEMATOCRIT 46 % (40-54); LYMPHOCYTES # (AUTO) 0.7 10^3/uL (1.0-4.0); LYMPHOCYTES % (AUTO) 12 % (12-44); MEAN CORPUSCULAR HEMOGLOBIN 33 pg (25-34); MEAN CORPUSCULAR HGB CONC 35 g/dL (32-36); MEAN CORPUSCULAR VOLUME 95 fL (80-99); MEAN PLATELET VOLUME 10.6 fL (9.0-12.2); MONOCYTES # (AUTO) 0.5 10^3/uL (0.0-1.0); MONOCYTES % (AUTO) 10 % (0-12); NEUTROPHILS % (AUTO) 74 % (42-75); PLATELET COUNT 156 10^3/uL (130-400); WHITE BLOOD COUNT 5.4 10^3/uL (4.3-11.0)
[2021-09-19 11:06] LABS: ALBUMIN 4.3 GM/DL (3.2-4.5); BILIRUBIN,TOTAL 0.6 MG/DL (0.1-1.0); CALCIUM 8.9 MG/DL (8.5-10.1); POTASSIUM 3.9 MMOL/L (3.6-5.0); TOTAL PROTEIN 7.1 GM/DL (6.4-8.2)
[2021-09-19 11:07] LABS: CREATININE SERUM 0.81 MG/DL (0.60-1.30)
[2021-10-02 12:02] LABS: BASOPHILS # (AUTO) 0.1 10^3/uL (0.0-0.1); BASOPHILS % (AUTO) 1 % (0-10); EOSINOPHILS # (AUTO) 0.2 10^3/uL (0.0-0.3); EOSINOPHILS % (AUTO) 4 % (0-10); HEMATOCRIT 46 % (40-54); HEMOGLOBIN 16.1 g/dL (13.3-17.7); LYMPHOCYTES # (AUTO) 0.8 10^3/uL (1.0-4.0); LYMPHOCYTES % (AUTO) 15 % (12-44); MEAN CORPUSCULAR HEMOGLOBIN 33 pg (25-34); MEAN CORPUSCULAR HGB CONC 35 g/dL (32-36); MEAN CORPUSCULAR VOLUME 95 fL (80-99); MEAN PLATELET VOLUME 10.2 fL (9.0-12.2); MONOCYTES # (AUTO) 0.4 10^3/uL (0.0-1.0); MONOCYTES % (AUTO) 8 % (0-12); NEUTROPHILS # (AUTO) 3.7 10^3/uL (1.8-7.8); NEUTROPHILS % (AUTO) 71 % (42-75); PLATELET COUNT 177 10^3/uL (130-400); WHITE BLOOD COUNT 5.2 10^3/uL (4.3-11.0)
[2021-10-02 12:32] LABS: ALBUMIN 4.1 GM/DL (3.2-4.5); BILIRUBIN,TOTAL 0.5 MG/DL (0.1-1.0); CALCIUM 8.8 MG/DL (8.5-10.1); CREATININE SERUM 0.9 MG/DL (0.60-1.30); POTASSIUM 3.9 MMOL/L (3.6-5.0)
== END 2021-10-17 | disposition home or self-care (01) ==
LOC: ONC 11:36
PROVIDERS: ATTEND Internal Medicine Hematology & Oncology
DX: Z51.11 Encounter for antineoplastic chemotherapy (principal); Z45.2 Encounter for adjustment and management of vascular access device; C15.5 Malignant neoplasm of lower third of esophagus; I10 Essential (primary) hypertension; E11.9 Type 2 diabetes mellitus without complications; E66.9 Obesity, unspecified; Z98.890 Other specified postprocedural states
CPT/HCPCS: 36591; 80053; 85025; 96413

== ENCOUNTER → 2021-10-09 | Outpatient (CLI) | payer MEDICAID ==
[~2021-10-09] MED LIST changes: -HEParin (CENTRAL IV FLUSH) 500 UNIT/5 ML SYR IV PRN; -NS (IVPB) 250 ML IV SCH; -NS IV SCH; -TRASTUZUMAB PKRB IV SCH
== END ==
LOC: CARD 14:30
PROVIDERS: ATTEND Internal Medicine Hematology & Oncology
DX: Z51.11 Encounter for antineoplastic chemotherapy (principal); C15.5 Malignant neoplasm of lower third of esophagus; I35.0 Nonrheumatic aortic (valve) stenosis
CPT/HCPCS: 93306

== ENCOUNTER → 2021-10-10 | Outpatient (CLI) | payer MEDICAID ==
[~2021-10-10] MED LIST changes: +CATHETER FLUSH 10 ML SYR IV PRN; +HOLD METFORMIN - RECEIVED CONTRAST 20 ML VIAL IV SCH; +IOHEXOL 350 MG/ML 100 ML (OMNIPAQUE 350) VIAL IV ONE; +NS 100 ML (IVPB) BAG IV ONE
--- NOTE | 2021-10-10 10:52 | Diagnostic Imaging Report ---
EXAMINATION: CT chest, abdomen and pelvis with intravenous contrast. TECHNIQUE: Multiple contiguous axial images were obtained through the chest, abdomen and pelvis after the uneventful administration of intravenous contrast. All CT scans use one or more of the following dose optimizing techniques: automated exposure control, MA and/or KvP adjustment based on patient size and exam type or iterative reconstruction. HISTORY: Esophageal cancer COMPARISON: 06/03/2021 FINDINGS: There is no edema or pneumonia. No pleural effusion. No pneumothorax. No suspicious nodules. There are scattered mild areas of scarring in the lungs. There has been an esophagectomy and gastric pull-through. The colon is herniated through the pull-through site, unchanged. There is no axillary or supraclavicular lymphadenopathy. There is no mediastinal lymphadenopathy. A right-sided port catheter is present. Heart size is normal. There are mild coronary artery calcifications. No pericardial effusion. Aorta is normal in caliber. The liver is normal without focal lesion. There is no biliary ductal dilation. Gallbladder is normal. Pancreas is normal. Spleen is normal. Adrenal glands are normal. The kidneys are normal. There is no hydronephrosis. Urinary bladder is normal. Bowel is normal in caliber without obstruction or inflammation. No free fluid or air. No abdominal or pelvic lymphadenopathy. Aorta is normal in caliber without aneurysm. There are no suspicious osseus lesions. IMPRESSION: 1. Postsurgical changes of esophagectomy and gastric pull-through with no metastatic disease seen in the chest, abdomen or pelvis. Dictated by: Dictated on workstation # [id number]
== END ==
LOC: RAD 10:03
PROVIDERS: ATTEND Internal Medicine
DX: C15.9 Malignant neoplasm of esophagus, unspecified (principal); Z90.49 Acquired absence of other specified parts of digestive tract; Z98.890 Other specified postprocedural states
CPT/HCPCS: 71260; 74177

== ENCOUNTER 2021-10-24 10:32 | Outpatient (RCR) | payer MEDICAID ==
[~2021-10-24 10:32] MED LIST changes: -CATHETER FLUSH 10 ML SYR IV PRN; +HEParin (CENTRAL IV FLUSH) 500 UNIT/5 ML SYR IV PRN; -HOLD METFORMIN - RECEIVED CONTRAST 20 ML VIAL IV SCH; -IOHEXOL 350 MG/ML 100 ML (OMNIPAQUE 350) VIAL IV ONE; +NS (IVPB) 250 ML IV SCH; -NS 100 ML (IVPB) BAG IV ONE; +NS IV SCH; +TRASTUZUMAB PKRB IV SCH
[2021-10-24 11:16] LABS: BASOPHILS % (AUTO) 1 % (0-10); EOSINOPHILS # (AUTO) 0.3 10^3/uL (0.0-0.3); EOSINOPHILS % (AUTO) 5 % (0-10); HEMATOCRIT 45 % (40-54); HEMOGLOBIN 15.9 g/dL (13.3-17.7); LYMPHOCYTES % (AUTO) 18 % (12-44); MEAN CORPUSCULAR HEMOGLOBIN 33 pg (25-34); MEAN CORPUSCULAR HGB CONC 35 g/dL (32-36); MEAN CORPUSCULAR VOLUME 95 fL (80-99); MEAN PLATELET VOLUME 10.5 fL (9.0-12.2); MONOCYTES # (AUTO) 0.5 10^3/uL (0.0-1.0); MONOCYTES % (AUTO) 9 % (0-12); NEUTROPHILS # (AUTO) 3.6 10^3/uL (1.8-7.8); NEUTROPHILS % (AUTO) 67 % (42-75); PLATELET COUNT 178 10^3/uL (130-400); WHITE BLOOD COUNT 5.3 10^3/uL (4.3-11.0)
[2021-10-24 11:34] LABS: ALBUMIN 4.1 GM/DL (3.2-4.5); BILIRUBIN,TOTAL 0.5 MG/DL (0.1-1.0); CALCIUM 8.9 MG/DL (8.5-10.1); CREATININE SERUM 0.81 MG/DL (0.60-1.30); POTASSIUM 4.2 MMOL/L (3.6-5.0); TOTAL PROTEIN 6.7 GM/DL (6.4-8.2)
[2021-11-04] MEDS ORDERED: ACHD5005 PO (17:25)
[2021-11-04] MEDS ORDERED: CEFU250T80 PO (17:25)
[2021-11-05] MEDS ORDERED: GABA300C PO (15:54)
[2021-11-05] MEDS ORDERED: OMEP40CA6 PO (15:54)
[2021-11-06] MEDS ORDERED: HYDR-3817 PO (15:30)
== END 2021-11-17 | disposition home or self-care (01) ==
LOC: ONC 10:32
PROVIDERS: ATTEND Internal Medicine Hematology & Oncology
DX: Z45.2 Encounter for adjustment and management of vascular access device (principal); C15.5 Malignant neoplasm of lower third of esophagus; I10 Essential (primary) hypertension; E11.9 Type 2 diabetes mellitus without complications; E66.9 Obesity, unspecified; Z92.21 Personal history of antineoplastic chemotherapy
CPT/HCPCS: 36591; 80053; 85025

== ENCOUNTER → 2021-10-28 | Outpatient (CLI) | payer MEDICAID ==
[~2021-10-28] MED LIST changes: +CATHETER FLUSH 10 ML SYR IVP PRN; -HEParin (CENTRAL IV FLUSH) 500 UNIT/5 ML SYR IV PRN; +HEParin (CENTRAL IV FLUSH) 500 UNIT/5 ML SYR ONE; -NS (IVPB) 250 ML IV SCH; -NS IV SCH; -TRASTUZUMAB PKRB IV SCH
--- NOTE | 2021-10-28 11:48 | Diagnostic Imaging Report ---
INDICATION: Malignant tumor of the lower 3rd of the esophagus. Patient was administered 29.6 mCi technetium 99m pertechnetate labeled to the patient's red blood cells and gated imaging of the chest was performed. A left ventricular ejection fraction is calculated to be 67%. IMPRESSION: Normal left ventricular ejection fraction of 67%. Dictated by: Dictated on workstation # [id number]
== END ==
LOC: CARD 10:00
PROVIDERS: ATTEND Internal Medicine Hematology & Oncology
DX: C15.5 Malignant neoplasm of lower third of esophagus (principal)
CPT/HCPCS: 78472

== ENCOUNTER 2021-11-04 16:26 | Day surgery (SDC) | payer MEDICAID ==
[~2021-11-04] VITALS: Ht 190.5 cm; Wt 92.0 kg
[~2021-11-04 16:26] MED LIST changes: -CATHETER FLUSH 10 ML SYR IVP PRN; -HEParin (CENTRAL IV FLUSH) 500 UNIT/5 ML SYR ONE
[2021-11-04] MEDS ORDERED: fentaNYL INJ 100 MCG/2 ML AMP IVP ONE (16:45)
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
[2021-11-04 16:58] LABS: BASOPHILS # (AUTO) 0.1 10^3/uL (0.0-0.1); BASOPHILS % (AUTO) 1 % (0-10); EOSINOPHILS # (AUTO) 0.2 10^3/uL (0.0-0.3); EOSINOPHILS % (AUTO) 2 % (0-10); HEMATOCRIT 46 % (40-54); HEMOGLOBIN 16.1 g/dL (13.3-17.7); LYMPHOCYTES # (AUTO) 0.8 10^3/uL (1.0-4.0); LYMPHOCYTES % (AUTO) 8 % (12-44); MEAN CORPUSCULAR HEMOGLOBIN 33 pg (25-34); MEAN CORPUSCULAR HGB CONC 35 g/dL (32-36); MEAN CORPUSCULAR VOLUME 94 fL (80-99); MONOCYTES # (AUTO) 0.7 10^3/uL (0.0-1.0); MONOCYTES % (AUTO) 6 % (0-12); NEUTROPHILS # (AUTO) 9.1 10^3/uL (1.8-7.8); NEUTROPHILS % (AUTO) 83 % (42-75); PLATELET COUNT 190 10^3/uL (130-400)
[2021-11-04] MEDS ORDERED: IOHEXOL 350 MG/ML 100 ML (OMNIPAQUE 350) VIAL IV ONE (17:00)
[2021-11-04] MEDS ORDERED: NS 100 ML (IVPB) BAG IV ONE (17:00)
[2021-11-04 17:08] LABS: ALBUMIN 4.4 GM/DL (3.2-4.5); POTASSIUM 3.7 MMOL/L (3.6-5.0)
[2021-11-04 17:09] LABS: CALCIUM 9.3 MG/DL (8.5-10.1)
[2021-11-04 17:11] LABS: TOTAL PROTEIN 7.3 GM/DL (6.4-8.2)
[2021-11-04 17:12] LABS: BILIRUBIN,TOTAL 0.6 MG/DL (0.1-1.0)
[2021-11-04] MEDS ORDERED: ACHD5005 PO (17:25)
[2021-11-04] MEDS ORDERED: CEFU250T80 PO (17:25)
[2021-11-04] MEDS ORDERED: HYDROcodone/APAP 5 MG/325 MG (LORTAB) TAB PO ONE (17:30)
[2021-11-04] MEDS ORDERED: TETANUS,DIPTH,PERTUSS P/F (BOOSTRIX) 0.5 ML VIAL IM ONE (17:30)
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
[2021-11-04] MEDS ORDERED: HYDROmorphone 2 MG/ML VIAL (DILAUDID) IV ONE (18:45)
[2021-11-04] MEDS ORDERED: LIDOCAINE 1% INJ 20 ML VIAL INJ ONE (18:45)
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
[2021-11-04] MEDS ORDERED: ONDANSETRON 4 MG/2 ML (SDV) Z0FRAN IVP ONE (19:00)
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
--- NOTE | 2021-11-04 19:40 | Diagnostic Imaging Report ---
INDICATION: Pneumothorax. FINDINGS: Thora-Vent catheter in frontal projection projects in stable alignment. There has been substantial reduction in volume of the left pneumothorax with apical pleural separation decreased now to measure 2.9 cm, previously 6.9 cm. Left diaphragmatic hernia and subjacent atelectasis redemonstrated. No new abnormality. IMPRESSION: Decreased left pneumothorax with no adverse change. Dictated by: Dictated on workstation # [id number]
[2021-11-04 20:37] VITALS: BP 135/79
[2021-11-04 20:46] VITALS: BP 121/84
[2021-11-04] MEDS ORDERED: RT-ALBUTEROL SULF 2.5 MG/3 ML PRE-MIX VIAL INH PRN (21:00)
[2021-11-04] MEDS ORDERED: ONDANSETRON 4 MG/2 ML (SDV) Z0FRAN IVP PRN (21:30)
[2021-11-04] MEDS ORDERED: PIPERACILLIN SODIUM/TAZOBACTAM 4.5 GM in NS (IVPB) 100 ML IV ONE (22:00)
[2021-11-04] MEDS: CATHETER FLUSH 10 ML SYR IVP SCH (22:10)
[2021-11-04] MEDS: fentaNYL INJ 100 MCG/2 ML AMP IVP PRN (22:10)
[2021-11-04] MEDS: HYDROcodone/APAP 7.5 MG/325 MG (LORTAB, LORCET PLUS) TABLET PO PRN (22:11)
[2021-11-04 23:39] VITALS: BP 126/72
[2021-11-04] MEDS: PANTOPRAZOLE 40 MG (PROTONIX) VIAL IV SCH (23:55)
[2021-11-05 03:45] VITALS: BP 129/84
[2021-11-05] MEDS: HYDROcodone/APAP 7.5 MG/325 MG (LORTAB, LORCET PLUS) TABLET PO PRN ×4 (03:51→20:15)
[2021-11-05] MEDS: PIPERACILLIN SODIUM/TAZOBACTAM 4.5 GM in NS (IVPB) 100 ML IV SCH ×3 (03:51→20:16)
[2021-11-05] MEDS: fentaNYL INJ 100 MCG/2 ML AMP IVP PRN ×3 (03:52→20:15)
[2021-11-05 05:38] LABS: BASOPHILS # (AUTO) 0.1 10^3/uL (0.0-0.1); BASOPHILS % (AUTO) 1 % (0-10); EOSINOPHILS # (AUTO) 0.1 10^3/uL (0.0-0.3); EOSINOPHILS % (AUTO) 1 % (0-10); HEMATOCRIT 42 % (40-54); HEMOGLOBIN 14.5 g/dL (13.3-17.7); LYMPHOCYTES # (AUTO) 0.7 10^3/uL (1.0-4.0); LYMPHOCYTES % (AUTO) 8 % (12-44); MEAN CORPUSCULAR HEMOGLOBIN 33 pg (25-34); MEAN CORPUSCULAR HGB CONC 35 g/dL (32-36); MEAN CORPUSCULAR VOLUME 95 fL (80-99); MEAN PLATELET VOLUME 10.3 fL (9.0-12.2); MONOCYTES # (AUTO) 0.8 10^3/uL (0.0-1.0); MONOCYTES % (AUTO) 10 % (0-12); NEUTROPHILS # (AUTO) 6.8 10^3/uL (1.8-7.8); NEUTROPHILS % (AUTO) 80 % (42-75); PLATELET COUNT 168 10^3/uL (130-400); WHITE BLOOD COUNT 8.4 10^3/uL (4.3-11.0)
[2021-11-05] MEDS: CATHETER FLUSH 10 ML SYR IVP SCH ×3 (05:47→20:15)
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
[2021-11-05 07:38] VITALS: BP 118/76
[2021-11-05] MEDS: DOCUSATE SODIUM 100 MG (COLACE) CAP PO SCH (07:41)
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
--- NOTE | 2021-11-05 08:18 | Diagnostic Imaging Report ---
Indication: Left-sided pneumothorax. Follow-up. COMPARISON: 11/04/2021 FINDINGS: Single frontal radiograph view the chest was obtained and demonstrates persistent, but diminished left apical pneumothorax. Pneumothorax is now estimated at less than 20%. Patchy airspace opacities in the left base persist and appear relatively unchanged. Right lung is clear. There is no large effusion or pneumothorax in the right. Cardiac silhouette and point vasculature are within normal limits. Left-sided smallbore chest tube is also noted and appears to be stable in position. Right internal jugular Port-A-Cath is also seen with tip in the SVC. IMPRESSION: 1. Persistent, but decreased left-sided pneumothorax. 2. Stable patchy infiltrate appearing opacities of the left lung base. Dictated by: Dictated on workstation # [id number]
--- NOTE | 2021-11-05 08:34 | Diagnostic Imaging Report ---
INDICATION: Follow-up pneumothorax. COMPARISON: Earlier same day FINDINGS: Single frontal radiographic view of the chest was obtained and again demonstrates small left apical pneumothorax. Pleural margins are partially obscured by overlying ribs, but volume of the pneumothorax appears stable compared to earlier same day. Airspace opacities in the left base also persist and are unchanged. Right lung remains relatively clear. There is no large effusion or pneumothorax in the right. Cardiac silhouette and pulmonary vasculature are within normal limits. Left-sided smallbore chest tube and right internal jugular Port-A-Cath are also present. IMPRESSION: 1. Stable subtle left apical pneumothorax. 2. Persistent left basilar infiltrate. Dictated by: Dictated on workstation # [id number]
[2021-11-05] MEDS ORDERED: PANTOPRAZOLE 40 MG (PROTONIX) VIAL IV SCH (09:00)
[2021-11-05 11:18] VITALS: BP 128/78
--- NOTE | 2021-11-05 13:21 | Progress Note ---
Standard Progress Note Progress Notes/Assess & Plan Date Seen by a Provider: Nov 05, 2021 Time Seen by a Provider: 12:00 Progress/Assessment & Plan PE: CHEST: Scattered wheezes with good breath sounds bilaterally. HEART: Regular, no murmurs. EXTREMITIES: No lower extremity edema, negative Homans sign. There is a slight angulation of the left wrist. He is able to move all fingers with no paresthesias. HEENT: No scleral icterus. NECK: No cervical lymphadenopathy. ABDOMEN: Soft, nontender, nondistended. NEUROLOGIC: Machias coma scale is 15. Moves all four extremities purposefully upon command. No focal deficits. ZACH GE MD Nov 05, 2021 13:21
[2021-11-05 15:53] VITALS: BP 120/77
[2021-11-05] MEDS ORDERED: OMEP40CA6 PO (15:54)
[2021-11-05] MEDS ORDERED: GABA300C PO (15:54)
[2021-11-05 19:32] VITALS: BP 128/80
[2021-11-05] MEDS: PANTOPRAZOLE 40 MG (PROTONIX) VIAL IV SCH (20:14)
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
[2021-11-05 23:36] VITALS: BP 114/74
[2021-11-06] VITALS (11 sets, daily range): BP systolic 120–169; BP diastolic 75–90
[2021-11-06] MEDS: fentaNYL INJ 100 MCG/2 ML AMP IVP PRN (03:37)
[2021-11-06] MEDS: PIPERACILLIN SODIUM/TAZOBACTAM 4.5 GM in NS (IVPB) 100 ML IV SCH ×3 (03:38→20:18)
[2021-11-06] MEDS: CATHETER FLUSH 10 ML SYR IVP SCH ×3 (04:53→22:14)
[2021-11-06] MEDS ORDERED: MIDAZOLAM 2 MG/2 ML (VERSED) VIAL ONE (07:15)
[2021-11-06] MEDS ORDERED: proPOfol 200 MG/20 ML (DIPRIVAN) VIAL IV ONE (07:15)
[2021-11-06] MEDS: LACTATED RINGERS 1,000 ML IV PRN ×2 (07:15→08:51)
[2021-11-06] MEDS ORDERED: fentaNYL INJ 100 MCG/2 ML AMP ONE (07:15)
[2021-11-06] MEDS ORDERED: LIDOCAINE PF 2% 5 ML (XYLOCAINE) VIAL ONE (07:15)
[2021-11-06] MEDS ORDERED: ONDANSETRON 4 MG/2 ML (SDV) Z0FRAN ONE ×2 (07:15→09:56)
[2021-11-06] MEDS ORDERED: CLINDAMYCIN 600 MG/4ML (CLEOCIN) VIAL ONE (07:25)
[2021-11-06] MEDS ORDERED: 0.9% SODIUM CHLORIDE PF INJ 20 ML VIAL ONE (07:25)
[2021-11-06] MEDS ORDERED: NEO/POLY/BAC (NEOSPORIN) OINT 15 GM TUBE ONE (07:26)
[2021-11-06] MEDS ORDERED: BUPIVACAINE 0.25% 30 ML (SENSORCAINE) VIAL ONE (07:26)
[2021-11-06] MEDS ORDERED: HYDROmorphone 2 MG/ML VIAL (DILAUDID) ONE (08:12)
[2021-11-06] MEDS ORDERED: CLINDAMYCIN 600 MG/50 ML IVPB 50 ML IV ONE (08:45)
[2021-11-06] MEDS ORDERED: SEVOFLURANE (ULTANE) 15 ML INHAL SOLN ONE (09:25)
--- NOTE | 2021-11-06 09:28 | Operative Report - Ortho ---
Operative Report Surgeon (s)/Tool Carrier (s) Surgeon ENE MENDOZA MD Tool Carrier n/a Pre-Operative Diagnosis Left Distal Radius Fracture Post-Operative Diagnosis same Operative Report Date of Procedure: Nov 06, 2021 Name of Procedure Performed: Open Reduction and Internal Fixation of Intra-articular Left Distal Radius Fracture Description & Findings After obtaining informed consent, the patient was taken to the operating room. General anesthesia was induced. Surgical timeout was taken. The left upper extremity was prepped and draped in the usual sterile fashion. Incision was made over the volar side of the wrist. Radial artery was identified and protected. Fascia was divided, retractors were placed, and the pronator was reflected. Fracture site was exposed. Fracture site was mobilized. Reduction maneuver was performed using traction, wrist flexion, and ulnar deviation. A V[employer]x distal radius plate was selected and position against the bone using C- arm. A nonlocking screw was placed in the slot of the plate. A nonlocking screw was then placed in the most distal row of the plate. Plate position and reduction were confirmed in the AP and lateral planes. An ulnar sided locking screw was placed in the distal row followed by the ulnar sided locking screw in the 2nd row. C-arm was once again utilized and noted to have good position of hardware with maintained reduction of fracture. 2 additional locking screws were placed distally and the distal nonlocking screw was switched for a locking screw. 2 locking screws were then placed in the radial styloid position. 2 lo cking screws were placed in the diaphyseal portion of the plate. Images were obtained in the AP, and lateral and demonstrated adequate reduction of the fracture with maintained reduction of the intrarticular segment, and appropriate position of the hardware. Final images were saved on the hard drive of the C- arm. Wound was irrigated with normal saline. Subcutaneous layer was closed with 3-0 vicryl. Skin was closed with 3-0 nylon. Wound was injected locally with marcaine. Arm was dressed with xeroform, 4x4s, webril, volar splint, and LAWANDA wrap. Patient tolerated the procedure well and was stable to the recovery room. Anesthesia Type General Estimated Blood Loss Less than 25 mL Specimen(s) collected/removed None ENE MENDOZA MD Nov 06, 2021 09:28
[2021-11-06] MEDS ORDERED: ONDANSETRON 4 MG/2 ML (SDV) Z0FRAN IVP PRN (10:00)
--- NOTE | 2021-11-06 10:48 | Anesthesia-General Post-Op ---
General Patient Condition Mental Status/LOC: Same as Preop Cardiovascular: Satisfactory Nausea/Vomiting: Absent Respiratory: Satisfactory Pain: Controlled Complications: Absent Post Op Complications Complications None Follow Up Care/Instructions Patient Instructions None needed. Anesthesia/Patient Condition Patient Condition Patient is doing well, no complaints, stable vital signs, no apparent adverse anesthesia problems. No complications reported per nursing. FREDY CHASE CRNA Nov 06, 2021 10:48
[2021-11-06] MEDS: DOCUSATE SODIUM 100 MG (COLACE) CAP PO SCH (11:05)
[2021-11-06] MEDS ORDERED: PROMETHAZINE INJ 25 MG/ML (PHENERGAN) AMP IVP NR (11:30)
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
[2021-11-06] MEDS: HYDROcodone/APAP 7.5 MG/325 MG (LORTAB, LORCET PLUS) TABLET PO PRN ×2 (15:00→19:08)
[2021-11-06] MEDS ORDERED: HYDR-3817 PO (15:30)
--- NOTE | 2021-11-06 15:31 | Discharge Inst-Surgical ---
D/C Lap Instructions-LUMA New, Converted, or Re-Newed RX: RX on Chart Follow Up Appt in 1 week Obtain outpatient 1 view chest xr before office visit. Activity as tolerated No driving for 24 hours No driving while on pain medications Incentive Spirometry use every 2 hours while awake Regular Diet Symptoms to Report: Fever over 101 degree F, Nausea/Vomiting Infection Signs and Symptoms to report: Increased redness, Foul odor of wound, Increased drainage Bathing instructions: May shower Operative Area Clean/Dry; Keep incision clean/dry If any problems/questions: Contact your physician or go to Emergency Room ZACH GE MD Nov 06, 2021 15:31
--- NOTE | 2021-11-06 15:53 | Diagnostic Imaging Report ---
Indication: Pneumothorax. Time of Exam: 1:41 PM Correlation is made with prior chest one day earlier. Right-sided port has tip overlying SVC. A small caliber chest tube on the left. No significant pneumothorax identified. There is continued left basilar atelectasis and elevation of the left hemidiaphragm. IMPRESSION: Left basilar subsegmental atelectasis. No significant left-sided pneumothorax is detected. Dictated by: Dictated on workstation # [id number]
--- NOTE | 2021-11-06 16:08 | Diagnostic Imaging Report ---
EXAMINATION: Chest, 1 view. HISTORY: Post thoracentesis. COMPARISON: 11/06/2021. FINDINGS: Right port catheter tip terminates in the superior vena cava. Heart size is normal. Left-sided chest tube has been removed. There is a stable small left pleural effusion and a stable small left pneumothorax. There is scarring or atelectasis in the left base. The heart size is normal. IMPRESSION: Stable small left pleural effusion and small pneumothorax with stable scarring or atelectasis in the left lung base. Dictated by: Dictated on workstation # [id number]
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
[2021-11-06] MEDS: PANTOPRAZOLE 40 MG (PROTONIX) VIAL IV SCH (22:14)
[2021-11-06] MEDS: polyethylene glycoL POWDER 17 GM (MIRALAX) PACK PO SCH (22:47)
[2021-11-07] VITALS: BP 122/65
[2021-11-07] MEDS: HYDROcodone/APAP 7.5 MG/325 MG (LORTAB, LORCET PLUS) TABLET PO PRN (00:28)
[2021-11-07 04:00] VITALS: BP 124/68
[2021-11-07] MEDS: PIPERACILLIN SODIUM/TAZOBACTAM 4.5 GM in NS (IVPB) 100 ML IV SCH ×2 (04:11→12:39)
[2021-11-07] MEDS: CATHETER FLUSH 10 ML SYR IVP SCH (06:06)
--- NOTE | 2021-11-07 08:00 | Progress Note - Ortho ---
Progress Note Subjective Date of Exam 11/07/21 Chief Complaint POD #1 ORIF L Fx HPI/Events since last exam pain reasonable, moving all fingers, no issues with splint Review of Systems - Allergies: Coded Allergies: oxaliplatin (Verified Allergy, Intermediate, 07/31/20) Penicillins (Unverified Allergy, Unknown, 01/01/16) Home Meds Active Scripts Hydrocodone/Acetaminophen (Hydrocodone-Acetamin 7.5-325) 7.5 Mg-325 Mg Tablet, 1 EACH PO Q4H, #35 TAB Prov:ZACH GE MD 11/06/21 Reported Medications Omeprazole (Omeprazole) 40 Mg Capsule., 20 MG PO HS, CAP 11/05/21 Gabapentin (Neurontin) 300 Mg Capsule, 300 MG PO HS, CAP 11/05/21 Discontinued Reported Medications Aspirin (Aspir 81) 81 Mg Tablet.dr, 81 MG PO DAILY, TAB 03/10/19 Discontinued Scripts Hydrocodone/Acetaminophen (Hydrocodone-Acetamin 5-325 mg) 5 Mg-325 Mg Tablet, 1 TAB PO Q4H PRN for PAIN-MODERATE (5-7), #20 TAB Prov:TONYA WALSH TRANSITIONAL LIVING SPECIALIST 11/04/21 Cefuroxime Axetil (Cefuroxime) 250 Mg Tablet, 250 MG PO BID, #10 TAB Prov:TONYA WALSH TRANSITIONAL LIVING SPECIALIST 11/04/21 Hydrocodone/Acetaminophen (Hydrocodone-Acetamin 5-325 mg) 1 Each Tablet, 1 TAB PO Q6H PRN for PAIN-MODERATE (5-7), #12 TAB Prov:BARRY COELHO MD 03/04/21 Mupirocin (Mupirocin) 22 Gm Oint...g., 22 GM TP BID, #22 EA apply a small amount to each nostril twice a day for 5 days Prov:BARRY COELHO MD 03/04/21 Doxycycline Hyclate (Doxycycline Hyclate) 100 Mg Tablet, 100 MG PO BID, #20 TAB 0 Refills Prov:BARRY COELHO MD 03/04/21 Objective Exam L Wrist: Splint C/D/I, flexes and extends fingers, sensation intact to light touch Vital Signs Vital Signs Date Time Temp Pulse Resp B/P (MAP) Pulse Ox O2 Delivery O2 Flow Rate FiO2 11/07/21 06:40 72 11/07/21 04:00 37.4 74 18 124/68 (86) 93 Room Air 11/07/21 01:00 70 11/07/21 00:00 37.8 70 18 122/65 (84) 96 Room Air 11/06/21 20:00 Room Air 11/06/21 19:05 37.8 73 18 120/75 (90) 92 Room Air 11/06/21 19:00 70 11/06/21 15:36 37.6 81 18 123/77 (92) 96 Room Air 11/06/21 12:24 69 11/06/21 11:27 36.4 75 21 127/78 (94) 94 Room Air 11/06/21 10:30 36.8 80 19 130/79 (96) 92 Room Air 11/06/21 10:20 36.9 8 161/90 (113) 93 Room Air 11/06/21 10:20 93 Room Air 0.00 11/06/21 10:17 Room Air 11/06/21 10:11 8 148/77 (100) 93 Room Air 11/06/21 10:10 OxyMask 9.00 11/06/21 10:00 12 169/87 (114) 99 OxyMask 9.00 11/06/21 10:00 OxyMask 9.00 11/06/21 09:50 10 153/80 (104) 98 OxyMask 9.00 11/06/21 09:45 OxyMask 9.00 11/06/21 09:40 9 163/79 (107) 96 OxyMask 9.00 11/06/21 09:31 OxyMask 9.00 11/06/21 09:31 37.1 8 142/78 (99) 98 OxyMask 9.00 I & O 11/07/21 07:00 Intake Total 2440 ml Balance 2440 ml Assessment and Plan Assessment Left Distal Radius Fracture s/p Open Reduction and Internal Fixation Problem List Left Distal Radius Fracture s/p Open Reduction and Internal Fixation Plan Continue splint; okay to work on finger/industrial/organizational psychologist motion F/U in ~2 weeks for suture removal and transition to fracture brace Final Diagonsis Left Distal Radius Fracture s/p Open Reduction and Internal Fixation Level of the visit: Level 3 (postop global) ENE MENDOZA MD Nov 07, 2021 08:00
[2021-11-07 08:12] VITALS: BP 111/69
[2021-11-07] MEDS: polyethylene glycoL POWDER 17 GM (MIRALAX) PACK PO SCH ×2 (09:08→12:31)
[2021-11-07] MEDS: DOCUSATE SODIUM 100 MG (COLACE) CAP PO SCH (09:11)
[2021-11-07 12:02] VITALS: BP 116/70
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
[2021-11-07 13:38] VITALS: BP 116/70
== END 2021-11-07 13:38 | disposition home or self-care (01) ==
LOC: EDUNIT# 16:26 → ER 16:28 → 4TH 19:31 → UNDOADMOB 19:31 → EEVIPCON 19:31 → 4TH 20:19 → SDC 20:19 → UNDODISOB 11-07 13:38 → SDC 11-07 13:38
PROVIDERS: ATTEND Surgery
DX: S52.502A Unspecified fracture of the lower end of left radius, initial encounter for closed fracture (principal); C15.9 Malignant neoplasm of esophagus, unspecified; S02.85XA Fracture of orbit, unspecified, initial encounter for closed fracture; S06.2X9A Diffuse traumatic brain injury with loss of consciousness of unspecified duration, initial encounter; J93.9 Pneumothorax, unspecified; X99.8XXA Assault by other sharp object, initial encounter
CPT/HCPCS: 36415; 70450; 70486; 71045; 71046; 71260; 72125; 73110; 74177; 80053; 85025; 87081; 87636; 90715; 94664; G0378

== ENCOUNTER → 2021-11-22 | Outpatient (CLI) | payer MEDICAID ==
[~2021-11-22] MED LIST changes: +CEFU250T80 PO; +HYDR-3817 PO; +OMEP40CA6 PO
== END ==
LOC: ORTHO 14:21
PROVIDERS: ATTEND Orthopaedic Surgery
DX: Z47.89 Encounter for other orthopedic aftercare (principal); I10 Essential (primary) hypertension; E11.9 Type 2 diabetes mellitus without complications; E66.9 Obesity, unspecified; Z98.890 Other specified postprocedural states

== ENCOUNTER → 2021-11-25 | Outpatient (CLI) | payer MEDICAID ==
--- NOTE | 2021-11-25 12:00 | Diagnostic Imaging Report ---
Indication: Pneumonia, followup. Time of Exam: 11:46 AM Correlation is made with prior chest from 11/06/2021. Heart size stable. Right chest wall port has tip overlying SVC. There has been improved aeration of left base since prior exam. No pneumothorax is identified on today's study. Right lung is clear. Impression: Improved aeration to the left base when compared to examination from 11/06/2021. Dictated by: Dictated on workstation # [id number]
== END ==
LOC: RAD 11:10
PROVIDERS: ATTEND Nurse Practitioner Family
DX: J18.9 Pneumonia, unspecified organism (principal); J93.9 Pneumothorax, unspecified
CPT/HCPCS: 71045

== ENCOUNTER 2021-12-12 08:47 | Outpatient (RCR) | payer MEDICAID | END 2021-12-18 | disposition home or self-care (01) | LOC: ONC 08:47 | PROVIDERS: ATTEND Internal Medicine Hematology & Oncology | DX: C15.5 Malignant neoplasm of lower third of esophagus (principal); I10 Essential (primary) hypertension; E11.9 Type 2 diabetes mellitus without complications; E66.9 Obesity, unspecified | CPT/HCPCS: 99213 ==

== ENCOUNTER → 2021-12-12 | Outpatient (CLI) | payer MEDICAID ==
--- NOTE | 2021-12-12 15:21 | Diagnostic Imaging Report ---
INDICATION: Followup fracture status post surgery EXAMINATION: Left wrist 12/12/2021 COMPARISON: 11/04/2021. FINDINGS: 3 views of the wrist There is a sideplate and multiple screws traversing the anterior aspect of the distal radius. Previously noted fracture is in good anatomic alignment. No new fractures or dislocations appreciated IMPRESSION: 1. Uncomplicated postoperative findings. Dictated by: Dictated on workstation # [id number]
== END ==
LOC: ORTHO 09:37
PROVIDERS: ATTEND Orthopaedic Surgery
DX: S62.102D Fracture of unspecified carpal bone, left wrist, subsequent encounter for fracture with routine healing (principal); X58.XXXD Exposure to other specified factors, subsequent encounter
CPT/HCPCS: 73110

== ENCOUNTER → 2022-01-29 | Outpatient (CLI) | payer MEDICAID ==
[~2022-01-29] MED LIST changes: +CATHETER FLUSH 10 ML SYR IV PRN; +HOLD METFORMIN - RECEIVED CONTRAST 20 ML VIAL IV SCH; +IOHEXOL 350 MG/ML 100 ML (OMNIPAQUE 350) VIAL IV ONE; +NS 100 ML (IVPB) BAG IV ONE
--- NOTE | 2022-01-29 11:20 | Diagnostic Imaging Report ---
PROCEDURE: CT chest, abdomen, and pelvis with contrast. TECHNIQUE: Multiple contiguous axial images were obtained through the chest, abdomen, and pelvis after the administration of intravenous contrast. Auto Exposure Controls were utilized during the CT exam to meet ALARA standards for radiation dose reduction. INDICATION: Esophageal carcinoma, status post esophagectomy. Correlation is made with prior CT from 11/04/2021. CT CHEST: A right right chest wall port has tip at SVC right atrial junction. Postsurgical changes from esophagectomy and gastric pull-through is again noted. Diaphragmatic hernia on the left posteriorly is again noted containing portions of the colon and stomach. No pericardial or pleural fluid is detected. No axillary, hilar or mediastinal lymphadenopathy is detected. Previously noted large left-sided pneumothorax has resolved. Both lungs are well-expanded on today's study. There is some paramediastinal fibrotic changes on the right. No pulmonary mass is seen. IMPRESSION: Postoperative changes of esophagectomy and gastric pull-through. No thoracic lymphadenopathy or evidence of pulmonary metastatic disease is identified. Left sided diaphragmatic hernia appears similar to prior exam. CT abdomen and pelvis: No focal liver mass is identified. Gallbladder is unremarkable. There is no biliary ductal dilatation. Pancreas and spleen are unremarkable. No adrenal mass is detected. Kidneys are unremarkable apart from a tiny cortical lesion in the left kidney, stable. Aorta is nonaneurysmal. There are normal-sized lymph nodes in the central retroperitoneum. Bowel loops appear nonobstructed. There is moderate stool in the colon. There is no free fluid detected. No pelvic lymphadenopathy is identified. The bladder and prostate are unremarkable. IMPRESSION: Stable CT of the abdomen and pelvis when compared with 11/04/2021 CT study. No abdominal or pelvic lymphadenopathy or evidence of metastatic disease is detected. Dictated by: Dictated on workstation # [id number]
== END ==
LOC: RAD 09:33
PROVIDERS: ATTEND Internal Medicine Hematology & Oncology
DX: C15.5 Malignant neoplasm of lower third of esophagus (principal); Z90.49 Acquired absence of other specified parts of digestive tract
CPT/HCPCS: 71260; 74177

== ENCOUNTER 2022-02-05 08:51 | Outpatient (RCR) | payer MEDICAID ==
[2022-01-29 09:41] LABS: BASOPHILS # (AUTO) 0.1 10^3/uL (0.0-0.1); BASOPHILS % (AUTO) 1 % (0-10); EOSINOPHILS # (AUTO) 0.2 10^3/uL (0.0-0.3); EOSINOPHILS % (AUTO) 3 % (0-10); HEMATOCRIT 46 % (40-54); HEMOGLOBIN 15.7 g/dL (13.3-17.7); LYMPHOCYTES # (AUTO) 0.7 10^3/uL (1.0-4.0); LYMPHOCYTES % (AUTO) 13 % (12-44); MEAN CORPUSCULAR HEMOGLOBIN 32 pg (25-34); MEAN CORPUSCULAR HGB CONC 34 g/dL (32-36); MEAN CORPUSCULAR VOLUME 94 fL (80-99); MEAN PLATELET VOLUME 10.2 fL (9.0-12.2); MONOCYTES # (AUTO) 0.5 10^3/uL (0.0-1.0); MONOCYTES % (AUTO) 8 % (0-12); NEUTROPHILS # (AUTO) 4.2 10^3/uL (1.8-7.8); NEUTROPHILS % (AUTO) 74 % (42-75); PLATELET COUNT 181 10^3/uL (130-400); WHITE BLOOD COUNT 5.7 10^3/uL (4.3-11.0)
[2022-01-29 09:56] LABS: ALBUMIN 4.1 GM/DL (3.2-4.5); BILIRUBIN,TOTAL 0.5 MG/DL (0.1-1.0); CALCIUM 9.1 MG/DL (8.5-10.1); CREATININE SERUM 0.76 MG/DL (0.60-1.30); POTASSIUM 3.9 MMOL/L (3.6-5.0); TOTAL PROTEIN 7.1 GM/DL (6.4-8.2)
[~2022-02-05 08:51] MED LIST changes: -CATHETER FLUSH 10 ML SYR IV PRN; -HOLD METFORMIN - RECEIVED CONTRAST 20 ML VIAL IV SCH; -IOHEXOL 350 MG/ML 100 ML (OMNIPAQUE 350) VIAL IV ONE; -NS 100 ML (IVPB) BAG IV ONE
== END 2022-02-17 | disposition home or self-care (01) ==
LOC: ONC 08:51
PROVIDERS: ATTEND Internal Medicine Hematology & Oncology
DX: Z45.2 Encounter for adjustment and management of vascular access device (principal); C15.5 Malignant neoplasm of lower third of esophagus; I10 Essential (primary) hypertension; E11.9 Type 2 diabetes mellitus without complications; E66.9 Obesity, unspecified
CPT/HCPCS: 36591; 80053; 82378; 85025; 86301; 99213

== ENCOUNTER → 2022-02-19 | Outpatient (CLI) | payer MEDICAID ==
--- NOTE | 2022-02-19 15:21 | Diagnostic Imaging Report ---
INDICATION: Left wrist pain. Followup fracture. Comparison with 12/12/2021. FINDINGS: 3 views. The volar side plate with bone screws again noted unchanged in position. There has been healing of the distal radial fracture. Radiocarpal joint shows good alignment with mild arthritic change. Carpal bones show no subluxation. IMPRESSION: No hardware complication. There has been healing of distal radial fracture. Dictated by: Dictated on workstation # [id number]
== END ==
LOC: ORTHO 10:44
PROVIDERS: ATTEND Orthopaedic Surgery
DX: Z47.89 Encounter for other orthopedic aftercare (principal); S52.502D Unspecified fracture of the lower end of left radius, subsequent encounter for closed fracture with routine healing; W19.XXXD Unspecified fall, subsequent encounter
CPT/HCPCS: 73110; 99213

== ENCOUNTER 2022-03-25 05:43 | Outpatient (CLI) | payer MEDICAID ==
[~2022-03-25] VITALS: Ht 188 cm; Wt 93.4 kg
[2022-03-26] MEDS ORDERED: ASPI-999 PO (15:54)
== END 2022-03-26 17:15 | disposition home or self-care (01) ==
LOC: PREOP 05:43
PROVIDERS: ATTEND Surgery
DX: Z01.818 Encounter for other preprocedural examination (principal)

== ENCOUNTER 2022-04-04 10:42 | Outpatient (RCR) | payer MEDICAID ==
[~2022-04-04 10:42] MED LIST changes: +ASPI-999 PO
== END 2022-04-19 | disposition home or self-care (01) ==
LOC: ONC 10:42
PROVIDERS: ATTEND Internal Medicine Hematology & Oncology
DX: Z45.2 Encounter for adjustment and management of vascular access device (principal); C15.5 Malignant neoplasm of lower third of esophagus; I10 Essential (primary) hypertension; E11.9 Type 2 diabetes mellitus without complications; E66.9 Obesity, unspecified
CPT/HCPCS: 96523

== ENCOUNTER 2022-05-07 10:25 | Outpatient (RCR) | payer MEDICAID ==
[2022-05-02 13:51] LABS: BASOPHILS # (AUTO) 0.1 10^3/uL (0.0-0.1); BASOPHILS % (AUTO) 1 % (0-10); EOSINOPHILS # (AUTO) 0.2 10^3/uL (0.0-0.3); EOSINOPHILS % (AUTO) 3 % (0-10); HEMATOCRIT 44 % (40-54); HEMOGLOBIN 15.1 g/dL (13.3-17.7); LYMPHOCYTES # (AUTO) 0.9 10^3/uL (1.0-4.0); LYMPHOCYTES % (AUTO) 18 % (12-44); MEAN CORPUSCULAR HEMOGLOBIN 33 pg (25-34); MEAN CORPUSCULAR HGB CONC 35 g/dL (32-36); MEAN CORPUSCULAR VOLUME 96 fL (80-99); MEAN PLATELET VOLUME 10.1 fL (9.0-12.2); MONOCYTES # (AUTO) 0.4 10^3/uL (0.0-1.0); MONOCYTES % (AUTO) 8 % (0-12); NEUTROPHILS # (AUTO) 3.5 10^3/uL (1.8-7.8); NEUTROPHILS % (AUTO) 70 % (42-75); PLATELET COUNT 188 10^3/uL (130-400)
[2022-05-02 14:08] LABS: ALBUMIN 4.2 GM/DL (3.2-4.5); BILIRUBIN,TOTAL 0.6 MG/DL (0.1-1.0); CALCIUM 8.9 MG/DL (8.5-10.1); CREATININE SERUM 0.79 MG/DL (0.60-1.30); POTASSIUM 3.7 MMOL/L (3.6-5.0); TOTAL PROTEIN 6.7 GM/DL (6.4-8.2)
== END 2022-05-20 | disposition home or self-care (01) ==
LOC: ONC 10:25
PROVIDERS: ATTEND Internal Medicine Hematology & Oncology
DX: Z45.2 Encounter for adjustment and management of vascular access device (principal); C15.5 Malignant neoplasm of lower third of esophagus; I10 Essential (primary) hypertension; E11.9 Type 2 diabetes mellitus without complications; E66.9 Obesity, unspecified
CPT/HCPCS: 36415; 36591; 80053; 82378; 85025; 99213

== ENCOUNTER 2022-05-13 09:49 | Day surgery (SDC) | payer MEDICAID ==
[~2022-05-13] VITALS: Ht 188 cm; Wt 93.4 kg
[2022-05-13] MEDS ORDERED: LACTATED RINGERS 1,000 ML IV STA (09:53)
[2022-05-13 10:00] VITALS: BP 124/79
[2022-05-13] MEDS ORDERED: PROPOFOL INJECTION 50 ML IV ONE (10:31)
[2022-05-13] MEDS ORDERED: MIDAZOLAM 2 MG/2 ML (VERSED) VIAL ONE (10:31)
--- NOTE | 2022-05-13 11:49 | Discharge Inst-Simple/Standard ---
Discharge Inst-Standard Patient Instructions/Follow Up Plan of Care/Instructions/FU: Xiao - 2 weeks Activity as Tolerated: Yes Discharge Diet: Regular Diet SUSHMA LUU DO May 13, 2022 11:49
[2022-05-13 11:55] VITALS: BP 111/75
[2022-05-13 12:00] VITALS: BP 109/72
[2022-05-13 12:30] VITALS: BP 113/76
--- NOTE | 2022-05-13 13:35 | Anesthesia-General Post-Op ---
MAC Patient Condition Mental Status/LOC: Same as Preop Cardiovascular: Satisfactory Nausea/Vomiting: Absent Respiratory: Satisfactory Pain: Controlled Complications: Absent Post Op Complications Complications None Follow Up Care/Instructions Patient Instructions None needed. Anesthesiology Discharge Order Discharge Order Patient is doing well, no complaints, stable vital signs, no apparent adverse anesthesia problems. No complications reported per nursing. FREDY CHASE CRNA May 13, 2022 13:35
--- NOTE | 2022-05-13 18:45 | OPERATIVE REPORT ---
DATE OF SERVICE: 05/13/2022 PREOPERATIVE DIAGNOSIS: Screening colonoscopy. POSTOPERATIVE DIAGNOSIS: Colon polyps. PROCEDURE: Colonoscopy with hot biopsy polypectomy x6 and fulguration x8. SURGEON: Sushma Hagen DO ANESTHESIA: Per [employer] SPECIALIST. ESTIMATED BLOOD LOSS: None. COMPLICATIONS: None. INDICATIONS: The patient is a 56-year-old male needing screening colonoscopy. He understands risks and benefits of procedure and wishes to proceed. Consent was signed and in the chart. DESCRIPTION OF PROCEDURE: The patient was taken to endoscopy suite, placed in left lateral recumbent position. A timeout was performed. Digital rectal exam was performed. No palpable polyps, masses or ulcerations. Scope was inserted into the rectum, advanced all the way to the cecum with minimal difficulty. Prep was adequate. Lots of irrigation and suction. The scope was slowly retracted back. No polyps, masses or ulcerations in the cecum, ascending, transverse, descending and sigmoid colon. In the rectum, multiple polyps were present. A hot biopsy polypectomies were performed on 6 polyps. Also, small little polyps were present, which were fulgurated. There is 8. The scope was then retroflexed noting no other pathology. Scope was returned to its normal position, slowly withdrawn until completely removed. The patient tolerated the procedure well without any complications, taken to recovery room in stable condition. RECOMMENDATIONS: The patient will be recommended repeat colonoscopy in one year, the number of polyps and also we do a 2-day prep. Any problems before that, be seen at the time. Job ID: [id number] DocumentID: [id number] Dictated Date: 05/13/2022 11:52:31 Speech Language Pathology Assistant Date: 05/13/2022 18:43:00 Dictated By: SUSHMA HAGEN DO [facility]
== END 2022-05-13 12:37 | disposition home or self-care (01) ==
LOC: ENDO 09:49
PROVIDERS: ATTEND Surgery
DX: Z12.11 Encounter for screening for malignant neoplasm of colon (principal); K62.1 Rectal polyp; Z28.310 Unvaccinated for COVID-19
CPT/HCPCS: 88305

== ENCOUNTER 2022-06-14 05:48 | Emergency (ER) | payer MEDICAID ==
[~2022-06-14] VITALS: Ht 185.5 cm; Wt 90.7 kg
[2022-06-14] MEDS ORDERED: NABU500T8 (06:06)
[2022-06-14] MEDS ORDERED: DOXY100C5 (06:06)
[2022-06-14] MEDS ORDERED: MUPI22OI2 (06:06)
[2022-06-14] MEDS ORDERED: TRAM50TA3 (06:06)
[2022-06-14] MEDS ORDERED: SMZ/TMP (06:06)
[2022-06-14] MEDS ORDERED: HYDROcodone/APAP 7.5 MG/325 MG (LORTAB, LORCET PLUS) TABLET PO STA (06:47)
[2022-06-14] MEDS ORDERED: LIDOCAINE 1% INJ 20 ML VIAL IJ STA (06:47)
--- NOTE | 2022-06-14 06:50 | ED Upper Extremity ---
General Chief Complaint: Upper Extremity Stated Complaint: RIGHT MIDDLE FINGER PAIN/SWELLING/REDNESS Nursing Triage Note: RIGHT DISTAL 3RD FINGER PAIN/SWELLING SINCE 06/12/22. SEEN BY PCP STARTED ON ABX/PAIN MEDS WITHOUT IMPROVEMENT. Source: patient, family Exam Limitations: no limitations History of Present Illness Date Seen by Provider: Jun 14, 2022 Time Seen by Provider: 06:39 Initial Comments Here with report of pain to the right middle finger with swelling that has been increasing over the last 2 days. Seen at [facility] yesterday and started on doxycycline and did have a shot of pain medicine. He is not been able to sleep for the last 2 nights because of increasing pain. He does have history of biting his nails since being on chemotherapy for esophageal cancer. He is fixing to start the next round of chemotherapy soon. Has obvious swelling to the base of the nail on the thumb side to the right middle finger. Denies fever or chills. He is able to flex and extend his hand and wrist. Pain goes from the tip to the middle joint per the patient. Denies other injury or concerns. Onset: other (2 days ago) Severity: moderate Pain/Injury Location: right 3rd finger Method of Injury: unknown Modifying Factors: Improves With Immobilization; Worse With Movement Allergies and Home Medications Allergies Coded Allergies: oxaliplatin (Verified Allergy, Intermediate, 03/26/22) Penicillins (Unverified Allergy, Unknown, 03/26/22) Patient Home Medication List Home Medication List Reviewed: Yes Aspirin (Aspirin) 81 Mg Tab.chew, 81 MG PO DAILY, (Reported) Entered as Reported by: JAQUELINE MITCHELL on 03/26/221553 Doxycycline Hyclate (Doxycycline Hyclate) 100 Mg Capsule, (Reported) Entered as Reported by: AKIL BANUELOS on 06/14/22605 Last Action: New Order Gabapentin (Neurontin) 300 Mg Capsule, 300 MG PO HS, (Reported) Entered as Reported by: DMITRI MONTAÑO on 11/05/211553 Mupirocin (Mupirocin) 2 % Oint...g., (Reported) Entered as Reported by: AKIL BANUELOS on 06/14/22605 Last Action: New Order Nabumetone (Nabumetone) 500 Mg Tablet, (Reported) Entered as Reported by: AKIL BANUELOS on 06/14/22605 Last Action: New Order Omeprazole (Omeprazole) 40 Mg Capsule.dr, 40 MG PO HS, (Reported) Entered as Reported by: DMITRI MONTAÑO on 11/05/21 1554 Tramadol HCl (Tramadol HCl) 50 Mg Tablet, (Reported) Entered as Reported by: AKIL BANUELOS on 06/14/22605 Last Action: New Order [Smz/Tmp] , (Reported) Entered as Reported by: AKIL BANUELOS on 06/14/22605 Last Action: New Order Review of Systems Constitutional: No fever Musculoskeletal: joint swelling, muscle stiffness Skin: see HPI, change in color, lesions Past Updymoj-Uczdlr-Bwwjkc Hx Patient Social History Tobacco Use?: Yes Substance use?: No Alcohol Use?: No Pt feels they are or have been: No Immunizations Up To Date Tetanus Booster (TDap): Unknown First/Initial COVID19 Vaccinat: NO Second COVID19 Vaccination Maurizio: NO Third COVID19 Vaccination Date: NO Seasonal Allergies Seasonal Allergies: No Past Medical History Surgery/Hospitalization HX: esophageal ca, ORTHO, GERD, Surgeries: Yes (CONDYLOMAS REMOVED FROM THE THROAT, J-tube, port and removed) Orthopedic, Tonsillectomy Respiratory: No Currently Using CPAP: No Currently Using BIPAP: No Cardiac: Yes Hypertension Neurological: Yes (MEMORY DEFICITS) Concussion, Traumatic Brain Injury Reproductive Disorders: No Sexually Transmitted Disease: No Genitourinary: No Gastrointestinal: Yes (esophagus ca) Gastroesophageal Reflux Musculoskeletal: Yes (LEFT HAND/WRIST) Back Injury, Chronic Back Pain, Fractures Endocrine: Yes (diabetes prior to wt loss) Diabetes, 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 0.0oz. 81.681550dy; 26.00 BMI Method:Stated General Appearance: WD/WN, mild distress Cardiovascular: regular rate, rhythm, no murmur Respiratory: lungs clear, normal breath sounds Hand: Right, nail injury, soft tissue tenderness, stiffness, swelling (Swelling noted to the tip on the thumb side of the right middle finger where there appears to be a paronychia. This has not progressed to a felon stage. Pain extends to the IP joint that he is able to flex and extend hand and fingers at the MCP.) Neurologic/Psychiatric: alert, oriented x 3 Skin: warm/dry Procedures/Interventions I&D : Site: Right middle finger thumb side paronychia Blade Size: 11 I & D Procedure: betadine prep Progress Digital block to right middle finger with 1% lidocaine approximately 5 mL in total. This was after Betadine prep. Incision of approximately 1 cm placed to the lateral aspect of the right middle finger at the base of the nail. Moderate amount of purulent drainage obtained and culture obtained. Flushed copiously. Wound is superficial and packing considered but not done. Antibiotic ointment placed over wound and wrapped with dressing. Patient reports significant pain relief after I&D and digital block. Tolerated procedure well with no complications. Progress/Results/Core Measures Results/Orders My Orders Orders - MARIA DOLORES SANDOVAL MD Wound Culture (06/14/22 06:47) Dipht,Pertuss(Acell),Tet Adult (Boostrix (06/14/22 07:00) Lidocaine 1% Inj 20 Ml (Xylocaine 1% Inj (06/14/22 06:47) Hydrocodone/Apap 7.5/325 Tab (Lortab 7. (06/14/22 06:47) Lidocaine 1% Inj 10 Ml (Xylocaine 1% Inj (06/14/22 06:54) Medications Given in ED Current Medications Medications Dose Ordered Sig/Jia Route Start Time Stop Time Status Last Admin Dose Admin Diphtheria/ Tetanus/Acell Pertussis 0.5 ml ONCE ONCE IM 06/14/22 07:00 06/14/22 07:01 DC 06/14/22 06:59 0.5 ML Lidocaine HCl 10 ml STK-MED ONCE .ROUTE 06/14/22 06:54 06/14/22 06:57 DC 06/14/22 06:59 10 ML Vital Signs/I&O 06/14/22 06:00 Temp 36.5 Pulse 82 Resp 16 B/P (MAP) 111/71 (84) Pulse Ox 96 O2 Delivery Room Air Blood Pressure Mean: 84 Progress Progress Note : Progress Note Seen and evaluated. We will proceed with I&D. See procedure note for details. Wound culture obtained during I&D and will be sent for evaluation. 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 He is currently on doxycycline and we will continue that. He started that yesterday. He did receive hydrocodone 7.5/325 1 tab p.o. here and has had good pain relief with that and the digital block. I will initiate outpatient prescription for hydrocodone 5/325 short prescription to help with pain. He has mupirocin ointment outpatient and will use that twice daily over the wound. Discharged home with return precautions. Patient and family verbalized understanding instructions and agreement with plan. Departure Impression Primary Impression: Paronychia of finger of right hand Disposition: 01 HOME, SELF-CARE Condition: Improved Departure-Patient Inst. Decision time for Depature: 07:47 Referrals: VALDEZ HUMPHREYS MD (PCP/Family) Primary Care Physician Patient Instructions: Paronychia (DC) Add. Discharge Instructions: All discharge instructions reviewed with patient and/or family. Voiced understanding. Use mupirocin ointment and dressing over wound changing it twice daily. Wash hands well each time with mild soap and warm water. Continue to take the oral antibiotics as prescribed. Follow-up with your doctor early next week for recheck and further evaluation. You may return here for wound check in 2 days if not improving. Return for worse pain, red streaks up the finger, hand or arm, fever, increasing foul-smelling drainage or other concerns as needed. Scripts Hydrocodone/Acetaminophen (Hydrocodone-Acetamin 5-325 mg) 5 Mg-325 Mg Tablet 1 TAB PO Q6H PRN for PAIN-MODERATE (5-7) for 7 Days, #8 TAB 0 Refills Prov: MARIA DOLORES SANDOVAL MD 06/14/22 MARIA DOLORES SANDOVAL MD Jun 14, 2022 06:50
[2022-06-14] MEDS ORDERED: LIDOCAINE 1% INJ 10 ML VIAL ONE (06:54)
[2022-06-14] MEDS ORDERED: TETANUS,DIPTH,PERTUSS P/F (BOOSTRIX) 0.5 ML VIAL IM ONE (07:00)
[2022-06-14] MEDS ORDERED: ACHD5005 PO (07:49)
[2022-06-14 07:57] VITALS: BP 111/71
== END 2022-06-14 07:57 | disposition home or self-care (01) ==
LOC: EDUNIT# 05:48 → ER 05:50
DX: L03.011 Cellulitis of right finger (principal); C15.9 Malignant neoplasm of esophagus, unspecified; Z23 Encounter for immunization; Z88.1 Allergy status to other antibiotic agents; Z28.310 Unvaccinated for COVID-19
CPT/HCPCS: 10060; 87070; 87077; 87205; 90715

== ENCOUNTER 2022-06-18 09:17 | Outpatient (RCR) | payer MEDICAID ==
[~2022-06-18] VITALS: Ht 188 cm; Wt 91.2 kg
[~2022-06-18 09:17] MED LIST changes: +DOXY100C5; +MUPI22OI2; +NABU500T8; +SMZ/TMP; +TOPI-241; -TOPI50TA13; +TRAM50TA3
== END 2022-07-18 | disposition home or self-care (01) ==
LOC: ONC 09:17
PROVIDERS: ATTEND Internal Medicine Hematology & Oncology
DX: C15.5 Malignant neoplasm of lower third of esophagus (principal); I10 Essential (primary) hypertension; E11.9 Type 2 diabetes mellitus without complications; E66.9 Obesity, unspecified

== ENCOUNTER → 2022-07-21 | Outpatient (CLI) | payer MEDICAID ==
[~2022-07-21] MED LIST changes: -TOPI-241; +TOPI50TA13
--- NOTE | 2022-07-21 15:21 | Diagnostic Imaging Report ---
PET/CT INDICATION: Malignant neoplasm of esophagus. TECHNIQUE: PET/CT imaging was obtained from the base of the skull through the pelvis after the administration of 9.72 mCi of F-18 fluorodeoxyglucose injected into the left antecubital fossa. Limited CT imaging was utilized for localization and attenuation correction purposes. The low energy CT utilized for attenuation correction is not considered to be of high enough spatial resolution to allow in and of itself a separate anatomical analysis. Patient height 6' 3" Weight 200 Blood glucose 114 The previous PET/CT exam performed on 01/22/2021 failed to show any hypermetabolic activity that would suggest the presence of malignancy. The CT chest, abdomen and pelvis exam of 01/29/2022 was also unremarkable for malignancy or for an acute abnormality. However, in the interval since the previous exam a 2.5 x 2.5 cm hypermetabolic mass has developed along the posterolateral aspect of the esophagus on the right just below the level of the brinda. This mass has a max SUV of 8.16 and should be considered neoplastic until proven otherwise. There is no other hypermetabolic activity to suggest malignancy. Physiologic activity is again seen in the brain, the heart, the kidneys, the bowel and the bladder. The CT images again show the postoperative changes consistent with a prior esophagectomy. The large hiatal hernia seen on the prior exam is again noted. There is no acute abnormality identified. IMPRESSION: 1. In the interval since the prior study a 2.5 x 2.5 cm hypermetabolic nicky mass has developed along the posterior aspect of the midesophagus on the right. This should be considered neoplastic until proven otherwise. 2. There is no other hypermetabolic activity to suggest the presence of malignancy. 3. There is no sign of an acute abnormality. Dictated by: Dictated on workstation # [id number]
== END ==
LOC: RAD 09:41
PROVIDERS: ATTEND Internal Medicine Hematology & Oncology
DX: C15.5 Malignant neoplasm of lower third of esophagus (principal)
CPT/HCPCS: 82947

== ENCOUNTER 2022-07-28 09:06 | Outpatient (RCR) | payer MEDICAID ==
[~2022-07-28] VITALS: Ht 188 cm; Wt 91.2 kg
[~2022-07-28 09:06] MED LIST changes: +TOPI-241; -TOPI50TA13
[2022-08-18] MEDS ORDERED: NS IV 1000 ML (CANCER CTR) IV SCH (08:30)
[2022-08-18] MEDS ORDERED: HEParin (CENTRAL IV FLUSH) 500 UNIT/5 ML SYR IV PRN (08:30)
== END 2022-08-17 | disposition home or self-care (01) ==
LOC: ONC 09:06
PROVIDERS: ATTEND Internal Medicine Hematology & Oncology
DX: C15.5 Malignant neoplasm of lower third of esophagus (principal); I10 Essential (primary) hypertension; E11.9 Type 2 diabetes mellitus without complications; E66.9 Obesity, unspecified

== ENCOUNTER → 2022-08-26 | Outpatient (CLI) | payer MEDICAID | LOC: CARD 08:57 | PROVIDERS: ATTEND Internal Medicine Hematology & Oncology | DX: C15.5 Malignant neoplasm of lower third of esophagus (principal) | CPT/HCPCS: 93306 ==

== ENCOUNTER → 2022-09-17 | Outpatient (RCR) | payer MEDICAID ==
[2022-08-18 11:23] LABS: BASOPHILS # (AUTO) 0.1 10^3/uL (0.0-0.1); BASOPHILS % (AUTO) 1 % (0-10); EOSINOPHILS # (AUTO) 0.2 10^3/uL (0.0-0.3); EOSINOPHILS % (AUTO) 3 % (0-10); HEMATOCRIT 45 % (40-54); HEMOGLOBIN 15.3 g/dL (13.3-17.7); LYMPHOCYTES # (AUTO) 0.9 10^3/uL (1.0-4.0); LYMPHOCYTES % (AUTO) 13 % (12-44); MEAN CORPUSCULAR HEMOGLOBIN 33 pg (25-34); MEAN CORPUSCULAR HGB CONC 34 g/dL (32-36); MEAN CORPUSCULAR VOLUME 95 fL (80-99); MEAN PLATELET VOLUME 9.8 fL (9.0-12.2); MONOCYTES # (AUTO) 0.5 10^3/uL (0.0-1.0); MONOCYTES % (AUTO) 8 % (0-12); NEUTROPHILS % (AUTO) 75 % (42-75); PLATELET COUNT 202 10^3/uL (130-400); WHITE BLOOD COUNT 6.7 10^3/uL (4.3-11.0)
[2022-08-18 11:45] LABS: BILIRUBIN,TOTAL 0.4 MG/DL (0.1-1.0); CALCIUM 8.6 MG/DL (8.5-10.1); CREATININE SERUM 0.73 MG/DL (0.60-1.30); POTASSIUM 4.3 MMOL/L (3.6-5.0); TOTAL PROTEIN 7.1 GM/DL (6.4-8.2)
[2022-08-26 10:02] LABS: BASOPHILS # (AUTO) 0.1 10^3/uL (0.0-0.1); BASOPHILS % (AUTO) 1 % (0-10); EOSINOPHILS # (AUTO) 0.2 10^3/uL (0.0-0.3); EOSINOPHILS % (AUTO) 3 % (0-10); HEMATOCRIT 42 % (40-54); HEMOGLOBIN 14.8 g/dL (13.3-17.7); LYMPHOCYTES # (AUTO) 0.9 10^3/uL (1.0-4.0); LYMPHOCYTES % (AUTO) 16 % (12-44); MEAN CORPUSCULAR HEMOGLOBIN 33 pg (25-34); MEAN CORPUSCULAR HGB CONC 35 g/dL (32-36); MEAN CORPUSCULAR VOLUME 93 fL (80-99); MONOCYTES # (AUTO) 0.5 10^3/uL (0.0-1.0); MONOCYTES % (AUTO) 9 % (0-12); NEUTROPHILS # (AUTO) 3.9 10^3/uL (1.8-7.8); NEUTROPHILS % (AUTO) 71 % (42-75); PLATELET COUNT 197 10^3/uL (130-400); WHITE BLOOD COUNT 5.5 10^3/uL (4.3-11.0)
[2022-08-26 10:25] LABS: ALBUMIN 4.1 GM/DL (3.2-4.5); BILIRUBIN,TOTAL 0.5 MG/DL (0.1-1.0); CALCIUM 8.6 MG/DL (8.5-10.1); CREATININE SERUM 0.8 MG/DL (0.60-1.30)
[2022-09-01 16:03] LABS: BASOPHILS # (AUTO) 0.1 10^3/uL (0.0-0.1); BASOPHILS % (AUTO) 1 % (0-10); EOSINOPHILS # (AUTO) 0.2 10^3/uL (0.0-0.3); EOSINOPHILS % (AUTO) 3 % (0-10); HEMATOCRIT 42 % (40-54); HEMOGLOBIN 14.6 g/dL (13.3-17.7); LYMPHOCYTES # (AUTO) 1.1 X 10^3 (1.0-4.0); LYMPHOCYTES % (AUTO) 19 % (12-44); MEAN CORPUSCULAR HEMOGLOBIN 33 pg (25-34); MEAN CORPUSCULAR HGB CONC 34 g/dL (32-36); MEAN CORPUSCULAR VOLUME 96 fL (80-99); MEAN PLATELET VOLUME 9.7 fL (9.0-12.2); MONOCYTES # (AUTO) 0.5 X 10^3 (0.0-1.0); MONOCYTES % (AUTO) 8 % (0-12); NEUTROPHILS % (AUTO) 68 % (42-75); PLATELET COUNT 204 10^3/uL (130-400); WHITE BLOOD COUNT 5.8 10^3/uL (4.3-11.0)
[2022-09-01 16:20] LABS: ALBUMIN 4.1 GM/DL (3.2-4.5); BILIRUBIN,TOTAL 0.6 MG/DL (0.1-1.0); CALCIUM 9.2 MG/DL (8.5-10.1); CREATININE SERUM 0.83 MG/DL (0.60-1.30); TOTAL PROTEIN 6.9 GM/DL (6.4-8.2)
[2022-09-08 12:00] VITALS: BP 105/64
[2022-09-08 13:30] LABS: BASOPHILS % (AUTO) 1 % (0-10); EOSINOPHILS # (AUTO) 0.1 10^3/uL (0.0-0.3); EOSINOPHILS % (AUTO) 3 % (0-10); HEMATOCRIT 41 % (40-54); HEMOGLOBIN 14.1 g/dL (13.3-17.7); LYMPHOCYTES # (AUTO) 0.9 10^3/uL (1.0-4.0); LYMPHOCYTES % (AUTO) 16 % (12-44); MEAN CORPUSCULAR HEMOGLOBIN 33 pg (25-34); MEAN CORPUSCULAR HGB CONC 35 g/dL (32-36); MEAN CORPUSCULAR VOLUME 95 fL (80-99); MEAN PLATELET VOLUME 9.5 fL (9.0-12.2); MONOCYTES # (AUTO) 0.5 10^3/uL (0.0-1.0); MONOCYTES % (AUTO) 9 % (0-12); NEUTROPHILS % (AUTO) 72 % (42-75); PLATELET COUNT 177 10^3/uL (130-400); WHITE BLOOD COUNT 5.6 10^3/uL (4.3-11.0)
[2022-09-08 13:36] LABS: ALBUMIN 4.1 GM/DL (3.2-4.5); POTASSIUM 3.9 MMOL/L (3.6-5.0)
[2022-09-08 13:37] LABS: CALCIUM 8.9 MG/DL (8.5-10.1)
[2022-09-08 13:39] LABS: TOTAL PROTEIN 6.8 GM/DL (6.4-8.2)
[2022-09-08 13:40] LABS: BILIRUBIN,TOTAL 0.6 MG/DL (0.1-1.0)
[2022-09-08 13:42] LABS: CREATININE SERUM 0.75 MG/DL (0.60-1.30)
[~2022-09-17] VITALS: Ht 188 cm; Wt 89.1 kg
[~2022-09-17] MED LIST changes: +FAMOTIDINE 20MG/2ML IV (PEPCID) IV PRN; +HEParin (CENTRAL IV FLUSH) 500 UNIT/5 ML SYR IV PRN; +NS IV 1000 ML (CANCER CTR) IV SCH; +NS IV SCH; +PALONOSETRON HCL 0.25 MG, dexAMETHasone INJECTION 10 MG in NS (IVPB) 50 ML IV SCH; +PALONOSETRON HCL IV SCH; +TRASTUZUMAB PKRB IV SCH
[2022-09-17 10:50] LABS: BASOPHILS # (AUTO) 0.1 10^3/uL (0.0-0.1); BASOPHILS % (AUTO) 1 % (0-10); EOSINOPHILS # (AUTO) 0.2 10^3/uL (0.0-0.3); EOSINOPHILS % (AUTO) 3 % (0-10); HEMATOCRIT 45 % (40-54); HEMOGLOBIN 15.1 g/dL (13.3-17.7); LYMPHOCYTES % (AUTO) 20 % (12-44); MEAN CORPUSCULAR HEMOGLOBIN 33 pg (25-34); MEAN CORPUSCULAR HGB CONC 33 g/dL (32-36); MEAN CORPUSCULAR VOLUME 99 fL (80-99); MEAN PLATELET VOLUME 9.6 fL (9.0-12.2); MONOCYTES # (AUTO) 0.5 10^3/uL (0.0-1.0); MONOCYTES % (AUTO) 10 % (0-12); NEUTROPHILS # (AUTO) 3.1 10^3/uL (1.8-7.8); NEUTROPHILS % (AUTO) 66 % (42-75); PLATELET COUNT 193 10^3/uL (130-400); WHITE BLOOD COUNT 4.7 10^3/uL (4.3-11.0)
[2022-09-17 11:07] LABS: ALBUMIN 4.2 GM/DL (3.2-4.5); BILIRUBIN,TOTAL 0.8 MG/DL (0.1-1.0); CALCIUM 9.3 MG/DL (8.5-10.1); CREATININE SERUM 0.98 MG/DL (0.60-1.30); POTASSIUM 4.6 MMOL/L (3.6-5.0); TOTAL PROTEIN 7.2 GM/DL (6.4-8.2)
== END | disposition home or self-care (01) ==
LOC: ONC 08-18 10:50
PROVIDERS: ATTEND Internal Medicine Hematology & Oncology
DX: Z51.11 Encounter for antineoplastic chemotherapy (principal); Z45.2 Encounter for adjustment and management of vascular access device; C15.5 Malignant neoplasm of lower third of esophagus; I10 Essential (primary) hypertension; E11.9 Type 2 diabetes mellitus without complications; E66.9 Obesity, unspecified
CPT/HCPCS: 36415; 36591; 80053; 85025; 96360; 96375; 96413

== ENCOUNTER 2022-10-13 11:20 | Outpatient (RCR) | payer MEDICAID ==
[2022-09-23 09:59] LABS: BASOPHILS # (AUTO) 0.1 10^3/uL (0.0-0.1); BASOPHILS % (AUTO) 1 % (0-10); EOSINOPHILS # (AUTO) 0.2 10^3/uL (0.0-0.3); EOSINOPHILS % (AUTO) 5 % (0-10); HEMATOCRIT 41 % (40-54); HEMOGLOBIN 14.3 g/dL (13.3-17.7); LYMPHOCYTES # (AUTO) 0.8 10^3/uL (1.0-4.0); LYMPHOCYTES % (AUTO) 19 % (12-44); MEAN CORPUSCULAR HEMOGLOBIN 34 pg (25-34); MEAN CORPUSCULAR HGB CONC 35 g/dL (32-36); MEAN CORPUSCULAR VOLUME 97 fL (80-99); MEAN PLATELET VOLUME 9.5 fL (9.0-12.2); MONOCYTES # (AUTO) 0.5 10^3/uL (0.0-1.0); MONOCYTES % (AUTO) 12 % (0-12); NEUTROPHILS # (AUTO) 2.6 10^3/uL (1.8-7.8); NEUTROPHILS % (AUTO) 63 % (42-75); PLATELET COUNT 166 10^3/uL (130-400); WHITE BLOOD COUNT 4.2 10^3/uL (4.3-11.0)
[2022-09-23 10:18] LABS: ALBUMIN 4.1 GM/DL (3.2-4.5); BILIRUBIN,TOTAL 0.8 MG/DL (0.1-1.0); CALCIUM 8.9 MG/DL (8.5-10.1); CREATININE SERUM 0.85 MG/DL (0.60-1.30); POTASSIUM 4.5 MMOL/L (3.6-5.0); TOTAL PROTEIN 6.7 GM/DL (6.4-8.2)
[2022-09-29 13:45] LABS: BASOPHILS # (AUTO) 0.1 10^3/uL (0.0-0.1); BASOPHILS % (AUTO) 1 % (0-10); EOSINOPHILS # (AUTO) 0.2 10^3/uL (0.0-0.3); EOSINOPHILS % (AUTO) 4 % (0-10); HEMATOCRIT 42 % (40-54); HEMOGLOBIN 14.5 g/dL (13.3-17.7); LYMPHOCYTES % (AUTO) 20 % (12-44); MEAN CORPUSCULAR HEMOGLOBIN 34 pg (25-34); MEAN CORPUSCULAR HGB CONC 35 g/dL (32-36); MEAN CORPUSCULAR VOLUME 97 fL (80-99); MEAN PLATELET VOLUME 9.5 fL (9.0-12.2); MONOCYTES # (AUTO) 0.6 10^3/uL (0.0-1.0); MONOCYTES % (AUTO) 12 % (0-12); NEUTROPHILS # (AUTO) 2.9 10^3/uL (1.8-7.8); NEUTROPHILS % (AUTO) 62 % (42-75); PLATELET COUNT 184 10^3/uL (130-400); WHITE BLOOD COUNT 4.8 10^3/uL (4.3-11.0)
[2022-09-29 14:05] LABS: ALBUMIN 4.1 GM/DL (3.2-4.5); BILIRUBIN,TOTAL 0.5 MG/DL (0.1-1.0); CALCIUM 8.7 MG/DL (8.5-10.1); CREATININE SERUM 0.76 MG/DL (0.60-1.30); TOTAL PROTEIN 6.7 GM/DL (6.4-8.2)
[2022-09-29 14:19] VITALS: BP 103/65
[2022-10-06 12:55] LABS: BASOPHILS # (AUTO) 0.1 10^3/uL (0.0-0.1); BASOPHILS % (AUTO) 1 % (0-10); EOSINOPHILS # (AUTO) 0.1 10^3/uL (0.0-0.3); EOSINOPHILS % (AUTO) 3 % (0-10); HEMATOCRIT 43 % (40-54); HEMOGLOBIN 14.6 g/dL (13.3-17.7); LYMPHOCYTES # (AUTO) 0.9 10^3/uL (1.0-4.0); LYMPHOCYTES % (AUTO) 19 % (12-44); MEAN CORPUSCULAR HEMOGLOBIN 34 pg (25-34); MEAN CORPUSCULAR HGB CONC 34 g/dL (32-36); MEAN CORPUSCULAR VOLUME 99 fL (80-99); MEAN PLATELET VOLUME 9.8 fL (9.0-12.2); MONOCYTES # (AUTO) 0.4 10^3/uL (0.0-1.0); MONOCYTES % (AUTO) 9 % (0-12); NEUTROPHILS # (AUTO) 3.1 10^3/uL (1.8-7.8); NEUTROPHILS % (AUTO) 68 % (42-75); PLATELET COUNT 150 10^3/uL (130-400); WHITE BLOOD COUNT 4.6 10^3/uL (4.3-11.0)
[2022-10-06 13:04] LABS: ALBUMIN 4.2 GM/DL (3.2-4.5); POTASSIUM 5.1 MMOL/L (3.6-5.0)
[2022-10-06 13:05] LABS: CALCIUM 9.3 MG/DL (8.5-10.1)
[2022-10-06 13:07] LABS: TOTAL PROTEIN 6.7 GM/DL (6.4-8.2)
[2022-10-06 13:10] LABS: CREATININE SERUM 0.9 MG/DL (0.60-1.30)
[~2022-10-13] VITALS: Ht 188 cm; Wt 90.9 kg
[~2022-10-13 11:20] MED LIST changes: -PALONOSETRON HCL 0.25 MG, dexAMETHasone INJECTION 10 MG in NS (IVPB) 50 ML IV SCH
[2022-10-13 11:40] LABS: BASOPHILS # (AUTO) 0.1 10^3/uL (0.0-0.1); BASOPHILS % (AUTO) 1 % (0-10); EOSINOPHILS # (AUTO) 0.2 10^3/uL (0.0-0.3); EOSINOPHILS % (AUTO) 4 % (0-10); HEMATOCRIT 41 % (40-54); HEMOGLOBIN 14.3 g/dL (13.3-17.7); LYMPHOCYTES # (AUTO) 1.1 10^3/uL (1.0-4.0); LYMPHOCYTES % (AUTO) 25 % (12-44); MEAN CORPUSCULAR HEMOGLOBIN 35 pg (25-34); MEAN CORPUSCULAR HGB CONC 35 g/dL (32-36); MEAN CORPUSCULAR VOLUME 101 fL (80-99); MEAN PLATELET VOLUME 9.8 fL (9.0-12.2); MONOCYTES # (AUTO) 0.5 10^3/uL (0.0-1.0); MONOCYTES % (AUTO) 12 % (0-12); NEUTROPHILS # (AUTO) 2.5 10^3/uL (1.8-7.8); NEUTROPHILS % (AUTO) 58 % (42-75); PLATELET COUNT 154 10^3/uL (130-400); WHITE BLOOD COUNT 4.3 10^3/uL (4.3-11.0)
[2022-10-13 11:53] LABS: ALBUMIN 4.3 GM/DL (3.2-4.5); BILIRUBIN,TOTAL 1.1 MG/DL (0.1-1.0); CALCIUM 9.1 MG/DL (8.5-10.1); CREATININE SERUM 0.82 MG/DL (0.60-1.30); POTASSIUM 4.6 MMOL/L (3.6-5.0); TOTAL PROTEIN 6.8 GM/DL (6.4-8.2)
== END 2022-10-17 | disposition home or self-care (01) ==
LOC: ONC 11:20
PROVIDERS: ATTEND Internal Medicine Hematology & Oncology
DX: Z51.11 Encounter for antineoplastic chemotherapy (principal); C15.5 Malignant neoplasm of lower third of esophagus; I10 Essential (primary) hypertension; E11.9 Type 2 diabetes mellitus without complications; E66.9 Obesity, unspecified; Z92.3 Personal history of irradiation; Z98.890 Other specified postprocedural states
CPT/HCPCS: 36415; 36591; 80053; 85025; 96375; 96413

== ENCOUNTER 2022-10-20 12:39 | Outpatient (RCR) | payer MEDICAID ==
[2022-09-29 14:19] VITALS: BP 103/65
[~2022-10-20 12:39] MED LIST changes: -FAMOTIDINE 20MG/2ML IV (PEPCID) IV PRN; +FAMOTIDINE INJ 20MG/2ML VIAL IV PRN
[2022-10-20 13:19] LABS: BASOPHILS # (AUTO) 0.1 10^3/uL (0.0-0.1); BASOPHILS % (AUTO) 1 % (0-10); EOSINOPHILS # (AUTO) 0.2 10^3/uL (0.0-0.3); EOSINOPHILS % (AUTO) 4 % (0-10); HEMATOCRIT 42 % (40-54); HEMOGLOBIN 14.5 g/dL (13.3-17.7); LYMPHOCYTES % (AUTO) 22 % (12-44); MEAN CORPUSCULAR HEMOGLOBIN 35 pg (25-34); MEAN CORPUSCULAR HGB CONC 35 g/dL (32-36); MEAN CORPUSCULAR VOLUME 101 fL (80-99); MEAN PLATELET VOLUME 9.5 fL (9.0-12.2); MONOCYTES # (AUTO) 0.5 10^3/uL (0.0-1.0); MONOCYTES % (AUTO) 11 % (0-12); NEUTROPHILS # (AUTO) 2.7 10^3/uL (1.8-7.8); NEUTROPHILS % (AUTO) 61 % (42-75); PLATELET COUNT 170 10^3/uL (130-400); WHITE BLOOD COUNT 4.4 10^3/uL (4.3-11.0)
[2022-10-20 13:31] LABS: ALBUMIN 4.2 GM/DL (3.2-4.5)
[2022-10-20 13:32] LABS: CALCIUM 8.9 MG/DL (8.5-10.1)
[2022-10-20 13:33] LABS: TOTAL PROTEIN 6.8 GM/DL (6.4-8.2)
[2022-10-20 13:35] LABS: BILIRUBIN,TOTAL 0.6 MG/DL (0.1-1.0)
[2022-10-20 13:37] LABS: CREATININE SERUM 0.8 MG/DL (0.60-1.30)
== END 2022-11-17 | disposition home or self-care (01) ==
LOC: ONC 12:39
PROVIDERS: ATTEND Internal Medicine Hematology & Oncology
DX: C15.5 Malignant neoplasm of lower third of esophagus (principal); I10 Essential (primary) hypertension; E11.9 Type 2 diabetes mellitus without complications; E66.9 Obesity, unspecified; Z92.21 Personal history of antineoplastic chemotherapy; Z92.3 Personal history of irradiation; Z98.890 Other specified postprocedural states
CPT/HCPCS: 80053; 85025

== ENCOUNTER → 2023-02-02 | Outpatient (CLI) | payer MEDICAID ==
[~2023-02-02] MED LIST changes: -FAMOTIDINE INJ 20MG/2ML VIAL IV PRN; -HEParin (CENTRAL IV FLUSH) 500 UNIT/5 ML SYR IV PRN; -NS IV 1000 ML (CANCER CTR) IV SCH; -NS IV SCH; -PALONOSETRON HCL IV SCH; -TRASTUZUMAB PKRB IV SCH
== END ==
LOC: CARD 13:01
PROVIDERS: ATTEND Family Medicine
DX: I35.1 Nonrheumatic aortic (valve) insufficiency (principal); C15.5 Malignant neoplasm of lower third of esophagus
CPT/HCPCS: 93306